=== PATIENT | male | born 1985 | race Caucasian/White ===

== ENCOUNTER 2017-05-02 16:37 | Emergency (ER) | payer MEDICAID ==
[~2017-05-02] VITALS: Ht 180.3 cm; Wt 74.8 kg
[~2017-05-02 16:37] MED LIST: AMOXIL500 M1 PO; AMOXIL500 MG PO; BACTRIM DS 8001 TA1 PO; CYCLOBENZAPRINE10 M1 PO; DARVOCET-N 1001 EACH PO; ETODOLAC400 MG PO; FLEXERIL10 MG PO; GABAPENTIN300 MG PO; LORTAB 5/500 501 TAB PO; MEDROL 4MG. DOSE4 MG PO; MOBIC7.5 MG PO; NAPROSYN 500MG500 MG PO; NORCO 325 MG-101 TAB PO; NORCO 325 MG-51 TAB PO; PHENERGAN 25MG.25 M1 PO; PHENERGAN25 M3 PO; PREDNISONE 20MG20 MG PO; SULFAMETHOXAZOL1 TA6 PO; TAMIFLU 75MG CA75 MG PO; TYLENOL ES500 M1 PO; ZITHROMAX Z-PA250 M1 PO
--- OUTSIDE RECORDS SUMMARY | 2017-05-02 16:58 | External Medical Summary Rpt ---
Author Author , BEATRIS SPEAR Address Unknown Phone [email or web address] Providers Care Transmission And Coordination Engineer Name Role Phone GERARDO PARK MD, PSC, Unavailable Unavailable GERARDO PARK MD, PSC ARNOLD YULISA, ARNOLD Unavailable Unavailable YULISA ARNOLD YULISA, ARNOLD Unavailable Unavailable YULISA MAHARAJ TER, MAHARAJ TER Unavailable Unavailable BUX, BUX Unavailable Unavailable DICK LUPILLO, Unavailable Unavailable DICK LUPILLO DUFF, DUFF Unavailable Unavailable DUFF ALEIDA, DUFF ALEIDA Unavailable Unavailable [facility] KARRIE CIFUENTES Unavailable Unavailable HARP MAKI ALEIDA, Unavailable Unavailable MAKI ALEIDA MAKI ALEIDA, Unavailable Unavailable MAKI ALEIDA FRYMAN EUG, FRYMAN Unavailable Unavailable EUG HOLLIS RODGER, HOLLIS Unavailable Unavailable RODGER [facility] Unavailable Unavailable INC, [facility] Unavailable [facility], [facility] VIVIEN MCKEON, Unavailable Unavailable VIVIEN MCKEON [facility], Unavailable Unavailable [facility] ROGERS, ROGERS Unavailable Unavailable ROGERS TRA, ROGERS TRA Unavailable Unavailable JACK QUEZADA MD, Unavailable Unavailable JACK QUEZADA MD [facility] Unavailable Unavailable [facility], [facility] LARKIN LALITO, LARKIN Unavailable Unavailable LALITO GEO WONG P, Unavailable Unavailable GEO WONG MULBERRY LIBORIO, Unavailable Unavailable MULXENIA LIBORIO [facility] Unavailable [facility]available [facility], [facility] Unavailable Unavailable [id number] [address] [id number], [facility] [id number] # [id number] SCHULSTAD CAM, Unavailable Unavailable SCHULSTAD CAM SOKAN, KRYSTAL O, Unavailable Unavailable SOKAN, KRYSTAL O [facility] GAINES DON, Unavailable Unavailable GAINES DON GAINES DON, Unavailable Unavailable GAINES DON [facility] Unavailable Unavailable #591, [facility]591 [facility] # Unavailable Unavailable [id number], [facility] # [id number] [facility] Unavailable Unavailable DEPT [facility] DEPT [facility] Unavailable Unavailable DEPT [facility] [place], [place] [facility] Unavailable Unavailable Purpose Continuity of Care Document - 02-15-2009 through 2016 Problems Code Diagnosis DOS Provider Status Z539 PROCEDURE & 11-15-2016 [facility] NOT CARRIED INC OUT UNS REASON M5116 INTERVERTEB 09-20-2016 JULIANA ALEJANDRO DISC , PSC D/O W/RADICULOP ATHY LUMB RGN J029 ACUTE 08-16-2016 [facility] PHARYNGITIS PHYSICIANS GROUP UNSPECIFIED R112 NAUSEA WITH 08-16-2016 [facility] VOMITING PHYSICIANS UNSPECIFIED GROUP R197 DIARRHEA 08-16-2016 [facility] UNSPECIFIED PHYSICIANS GROUP M549 DORSALGIA 07-19-2016 [facility] UNSPECIFIED PHYSICIANS GROUP M5136 OT 07-13-2016 FILEMON ALEJANDRO MD, PSC RAL DISC DEGEN LUMBAR REGION J309 ALLERGIC 06-28-2016 [facility] RHINITIS PHYSICIANS UNSPECIFIED GROUP J381 POLYP OF 06-28-2016 [facility] VOCAL CORD PHYSICIANS AND LARYNX GROUP M5126 OT 06-28-2016 FILEMON ALEJANDRO MD, PSC RAL DISC DISPLACEMEN T LUMBAR RGN M5416 RADICULOPAT 06-28-2016 GERARDO PARK HY LUMBAR , PSC REGION Z720 TOBACCO USE 06-28-2016 [facility] PHYSIC[facility]ANS GROUP M545 LOW BACK 06-11-2016 [facility] PAIN PHYSICIANS GROUP R499 UNSPECIFIED 06-11-2016 [facility] VOICE PHYSICIANS RESONANCE GROUP DISORDER J40 BRONCHITIS 03-24-2016 [facility] NOT PHYSICIANS SPECIFIED GROUP ACUTE OR CHRONIC J329 CHRONIC 02-23-2016 [facility] SINUSITIS PHYSICIANS UNSPECIFIED GROUP M5441 LUMBAGO 12-18-2015 [facility] WITH PHYSICIANS SCIATICA GROUP RIGHT SIDE R1011 RIGHT UPPER 12-18-2015 [facility] QUADRANT PHYSICIANS PAIN GROUP F23048 CELLULITIS 10-22-2015 [facility] OF LEFT PHYSICIANS, FINGER PLLC M5430 SCIATICA 10-01-2015 [facility] UNSPECIFIED [facility] M533 SACROCOCCYG 09-21-2015 [facility] MEDICAL DISORDERS IMAGING ASS [facility] D51888 PERSONAL 09-21-2015 [facility]ORY [facility] NICOTINE INC DEPENDENCE J0190 ACUTE 09-16-2015 KEVIN MÁRQUEZ SINUSITIS UNSPECIFIED M542 CERVICALGIA 09-16-2015 KEVIN MÁRQUEZ V0481 NEED 07-16-2015 [facility] DEPT VACCINATION JEZ &INOCULATIO N FLU 7242 LUMBAGO 06-07-2015 MAKI ALEIDA 7393 NONALLOPATH 06-07-2015 MAKI IC LESION ALEIDA OF LUMBAR REGION NEC 7395 NONALLOPATH 06-07-2015 MAKI IC LESION ALEIDA OF PELVIC REGION NEC 462 ACUTE 07-01-2014 [facility]Y PHYS 4739 UNSPECIFIED 07-01-2014 [facility] SINUSITIS N EMERGENCY PHYS V700 ROUTINE 03-29-2014 KEVIN MÁRQUEZ GENERAL MEDICAL EXAM@HEALTH CARE FACL 850.0 850.0 02-21-[address] [facility] W/O [facility] E825.8 E825.8 MV 02-21-2013 [facility] N-TRAFF [facility] E849.8 E849.8 02-21-2013 L[place] ACCIDENT IN [facility] 17557 PAIN IN 01-12-2012 GAINES JOINT, DON SHOULDER REGION 8409 SPRAIN&STRA 01-12-2012 GAINES IN UNSPEC DON SITE SHOULDER&UP PER ARM 6929 CONTACT 10-01-2011 [facility]ES DERMATITIS& DON OTHER ECZEMA DUE UNSPEC CAUSE 7821 RASH AND 04-17-2011 [facility] OTHER ASSOCIATES NONSPECIFIC SKIN ERUPTION 4660 ACUTE 06-15-2010 GAINES BRONCHITIS DON 54097 SHORTNESS 06-15-2010 GAINES OF BREATH DON 17583 OTHER CHEST 06-15-2010 GAINES PAIN DON 44349 NAUSEA WITH 06-15-2010 GAINES VOMITING DON 7804 DIZZINESS 04-01-2010 [facility] GIDDINESS INC 9895 TOXIC 04-01-2010 [facility] EFFECT OF EMERGENCY VENOM SERVICES ASSOCIATES 5206 DISTURBANCE 03-12-2010 Rebekah MCKEON IN TOOTH [facility]IV[place] [place] ERUPTION 93357 DENTAL 03-05-2010 MIKE CARIES [facility] [place] EXTENDING INTO PULP 5220 PULPITIS 03-05-2010 VIVIEN MCKEON 5253 RETAINED 03-05-2010 MIKE DENTAL ROOT VIV[facility] [place] 8920 OPEN WOUND 01-26-2010 [facility] FT NO TOE EMERGENCY ALONE SERVICES WITHOUT ASSOCIATES MENTION COMP V065 NEED 01-26-2010 [facility] PROPHYLACTI [facility] C INC VACCINATION W/TETANUS-D [facility] 4871 INFLUENZA 07-22-2009 [facility] WITH OTHER EMERGENCY RESPIRATORY SERVICES ASSOCIATES MANIFESTATI ONS 4881 INFLUENZA 07-22-2009 [facility] D/T ID 2009 [facility] H1N1 INC INFLUENZA VIRUS 6820 CELLULITIS 05-27-2009 [facility] AND ABSCESS EMERGENCY OF FACE SERVICES ASSOC[facility] 9221 CONTUSION 02-15-2009 [place] OF CHEST MEDICAL WALL IMAGING ASSOCIATES E8150 OTH MOTR 02-15-2009 [place] VEH HERI MEDICAL W/OBJ IMAGING HIWAY-INJUR ASSOCIATES ING SALES MARKETING E8230 OTH MOTR 02-15-2009 [facility] VEH NONTRFF EMERGENCY HERI SERVICES W/STATION ASSOCIATES OBJ-SALES MARKETING E8490 PLACE OF 02-15-2009 [place] OCCURRENCE, MEDICAL HOME IMAGING ASSOC[facility]ATES Allergies, Adverse Reactions, Alerts Type Allergy to substance Adverse Reaction to Substance Substance Reaction Severity NO KNOWN ALLERGIES Unknown Unknown Medications Na ND Rx Da Fi Fi Am Da Di Ph RX Ph St me C No te ll ll ou ys ag ar # ys at rm s nt no ma ic us Or Da si cy ia de te s n re d GA 67 05 06 30 30 00 CL Ac BA 87 -3 -3 .0 00 IN ti PE 70 0- 0- 00 00 IC ve NT 22 20 20 41 IN 30 17 17 78 PH 5 11 AR 30 MA 0 CY MG CA PS UL E GA 67 05 06 30 30 00 CL Ac BA 87 -0 -0 .0 00 IN ti PE 70 2- 2- 00 00 IC ve NT 22 20 20 41 IN 30 17 17 78 PH 5 11 AR 30 MA 0 CY MG CA PS UL E GA 42 04 05 30 30 00 CL Ac BA 58 -0 -0 .0 00 IN ti PE 20 4- 5- 00 00 IC ve NT 11 20 20 41 IN 51 17 17 78 PH 8 11 AR 30 MA 0 CY MG CA PS UL E GA 45 03 03 30 30 00 CL Ac BA 96 -0 -3 .0 00 IN ti PE 30 1- 1- 00 00 IC ve NT 55 20 20 41 IN 65 17 17 78 PH 0 11 AR 30 MA 0 CY MG CA PS UL E CY 00 01 03 30 30 00 CL Ac CL 59 -3 -0 .0 00 IN ti OB 15 1- 3- 00 00 IC ve EN 65 20 20 40 ZA 81 17 17 42 PH NV 0 42 AR IN MA E CY 10 MG TA BL ET ME 29 01 03 30 30 00 CL Ac LO 30 -3 -0 .0 00 IN ti XI 00 1- 3- 00 00 IC ve CA 12 20 20 40 M 40 17 17 42 PH 7. 1 44 AR 5 MA MG CY TA BL ET GA 69 01 03 30 30 00 CL Ac BA 09 -3 -0 .0 00 IN ti PE 70 1- 3- 00 00 IC ve NT 81 20 20 41 IN 41 17 17 78 PH 2 11 AR 30 MA 0 CY MG CA PS UL E ME 29 01 02 30 30 00 CL Ac LO 30 -0 -0 .0 00 IN ti XI 00 2- 3- 00 00 IC ve CA 12 20 20 40 M 40 17 17 42 PH 7. 1 44 AR 5 MA MG CY TA BL ET CY 00 01 02 30 30 00 CL Ac CL 59 -0 -0 .0 00 IN ti OB 15 2- 3- 00 00 IC ve EN 65 20 20 40 ZA 81 17 17 42 PH NV 0 42 AR IN MA E CY 10 MG TA BL ET HY 00 01 02 60 [address] 60 -0 -0 .0 00 IN ti OC 33 3- 3- 00 00 IC ve OD 89 20 20 41 ON 03 17 17 79 PH -A 2 98 AR CE MA TA CY VA NO PH EN 5- 32 5 GA 67 01 02 30 30 00 CL Ac BA 87 -0 -0 .0 00 IN ti PE 70 2- 3- 00 00 IC ve NT 22 20 20 41 IN 31 17 17 77 PH 0 72 AR 30 MA 0 CY MG CA PS UL E HY 00 12 01 60 [address] 60 -0 -0 .0 00 IN ti OC 33 1- 9- 00 00 IC ve OD 89 20 20 41 ON 03 16 17 20 PH -A 2 86 AR CE MA TA CY VA NO PH EN 5- 32 5 KE 00 05 0 No TO 40 -0 RO 93 8- Lo LA 79 20 ng C 60 13 er 60 1 Ac MG ti /2 ve ML AL CE 68 07 07 0 20 10 WA 71 MU Ac PH 18 -0 -0 .0 L- 25 LB ti AL 00 2- 2- 00 MA 56 ER ve EX 12 20 20 RT 0 RY IN 20 11 11 1 PH BR 50 AR IA 0 MA N MG CY T # CA PS 10 UL 05 E 91 AM 00 08 08 0 [address] Ac OX 78 -3 -3 .0 L- 84 EP ti IC 12 1- 1- 00 MA 20 HE ve IL 61 20 20 RT 7 NS LI 33 10 10 N 1 PH DO 50 AR N 0 MA R MG CY # CA PS 10 UL 05 E 91 60 08 08 1 [address] Ac 25 -3 -3 0. L- 84 EP ti 80 1- 1- 00 MA 20 HE ve 23 20 20 0 RT 8 NS 91 10 10 6 PH DO AR N MA R CY # 10 05 91 NV 00 08 08 5 6[address] Ac OV 08 -3 -3 70 L- 84 EP ti EN 51 1- 1- 0 MA 20 HE ve TI 13 20 20 RT 9 NS L 20 10 10 HF 1 PH DO A AR N 90 MA R CY MC # G IN 10 MURILLO 05 LE 91 R OX 00 05 05 20 3 RI 83 HE Ac YC 40 -2 -2 .0 TE 55 ND ti OD 60 7- 7- 00 46 ER ve ON 51 20 20 AI SO E- 20 10 10 D N AC 1 PH RO ET AR BE AM MA RT IN CY W OP HE 03 N 93 5- 8 32 # 5 03 93 AM 65 05 05 15 5 RI 83 HE Ac OX 86 -2 -2 .0 TE 55 ND ti IC 20 7- 7- 00 47 ER ve IL 01 20 20 AI SO LI 70 10 10 D N N 5 PH RO 50 AR BE 0 MA RT MG CY W CA 03 PS 93 UL 8 E # 03 93 IB 53 05 05 20 6 RI 83 HE Ac UP 74 -2 -2 .0 TE 55 ND ti RO 60 7- 7- 00 48 ER ve FE 46 20 20 AI SO N 60 10 10 D N 80 5 PH RO 0 AR BE MG MA RT CY W TA BL 03 ET 93 8 # 03 93 ME 00 05 05 21 6 RI 83 HE Ac TH 60 -2 -2 .0 TE 55 ND ti YL 34 7- 7- 00 49 ER ve NV 59 20 20 AI SO ED 31 10 10 D N NI 5 PH RO SO AR BE LO MA RT NE CY W 4 03 MG 93 8 DO # SE 03 PK 93 NV 00 05 05 12 2 RI 83 HE Ac OM 78 -2 -2 .0 TE 55 ND ti ET 11 7- 7- 00 50 ER ve MURILLO 83 20 20 AI SO ZI 00 10 10 D N NE 1 PH RO AR BE 25 MA RT CY W MG 03 TA 93 BL 8 ET # 03 93 00 05 05 15 3 RI 83 HE Ac 40 -2 -2 .0 TE 46 ND ti 60 0- 0- 00 45 ER ve 35 20 20 AI SO 80 10 10 D N 1 PH RO AR BE MA RT CY W 03 93 8 # 03 93 00 05 05 15 3 RI 83 HE Ac 40 -2 -2 .0 TE 46 ND ti 60 0- 0- 00 45 ER ve 35 20 20 AI SO 80 10 10 D N 1 PH RO AR BE MA RT CY W 03 93 8 # 03 93 AM 65 05 05 20 6 RI 83 HE Ac OX 86 -2 -2 .0 TE 46 ND ti IC 20 0- 0- 00 46 ER ve IL 01 20 20 AI SO LI 70 10 10 D N N 5 PH RO 50 AR BE 0 MA RT MG CY W CA 03 PS 93 UL 8 E # 03 93 00 04 04 12 3 RI 82 SO Ac 60 -1 -1 .0 TE 93 KA ti 35 2- 2- 00 91 N ve 46 20 20 AI BA 82 10 10 D BA 8 PH TU AR ND MA E CY O 03 93 8 # 03 93 ALLRED 00 04 04 28 14 RI 82 SO Ac LF 60 -1 -1 .0 TE 93 KA ti AM 35 2- 2- 00 92 N ve ET 78 20 20 AI BA HO 12 10 10 D BA XA 8 PH TU ZO AR ND LE MA E -T CY O MP 03 DS 93 8 TA # BL 03 ET 93 NV 68 10 10 00 12 2 WA 70 SO Ac OM 38 -0 -2 .0 L- 40 KA ti ET 20 6- 2- 00 MA 14 N ve MURILLO 04 20 20 RT 9 BA ZI 10 09 09 BA NE 1 PH TU AR ND 25 MA E CY O MG #5 TA 91 BL ET TA 00 10 10 00 10 5 WA 70 SO Ac VA 00 -0 -2 .0 L- 40 KA ti FL 40 6- 2- 00 MA 13 N ve U 80 20 20 RT 0 BA 75 08 09 09 BA 5 PH TU MG AR ND MA E CA CY O PS UL #5 E 91 AM 00 08 08 00 30 10 WA 70 SO Ac OX 78 -1 -2 .0 L- 31 KA ti IC 12 1- 7- 00 MA 86 N ve IL 61 20 20 RT 6 BA LI 33 09 09 BA N 1 PH TU 50 AR ND 0 MA E MG CY O CA #5 PS 91 UL E 00 05 05 00 15 5 WA 70 SO Ac 37 -0 -2 .0 L- 18 KA ti 80 2- 1- 00 MA 98 N ve 75 20 20 RT 4 BA 19 09 09 BA 3 PH TU AR ND MA E CY O #5 91 00 05 05 00 10 2 WA 44 SO Ac 40 -0 -2 .0 L- 76 KA ti 60 2- 1- 00 MA 36 N ve 35 20 20 RT 9 BA 70 09 09 BA 5 PH TU AR ND MA E CY O #5 91 NA 00 05 05 00 10 5 WA 70 SO Ac NV 09 -0 -2 .0 L- 18 KA ti OX 30 2- 1- 00 MA 98 N ve EN 14 20 20 RT 5 BA 91 09 09 BA 50 0 PH TU 0 AR ND MG MA E CY O TA BL #5 ET 91 Immunization Name Date Rout CVX Reac Dose Comm Prov Is Faci e tion ent ider Refu lity Give sed n IIV4 3 158 [facility] No [facility] 0-20 O O VACC 15 DIST DIST RICT RICT SPLI T HLTH HLTH VIRU S DEPT DEPT 0.5 JEZ JEZ ML DOS FOR IM USE Vital Signs 02-21-2013 14:26 Name Value Interpretat Reference Comment ion Range Body 98.2 [degF] Temperature BP 68 mm[Hg] Diastolic BP Systolic 130 mm[Hg] Heart 61 /min Rate/Pulse O2% 97 % Respiratory 18 /min Rate 02-21-2013 14:15 Name Value Interpretat Reference Comment ion Range BP 81 mm[Hg] Diastolic BP Systolic 115 mm[Hg] Heart 91 /min Rate/Pulse O2% 98 % Respiratory 18 /min Rate Procedures Procedure DOS Code [place] Performer [place] [address] GERARDO BUX DX/THER 6 MD VIVIAN, SBST PSC EPIDURAL/ SUBARACH LUMBAR/SA CRAL BLOOD 63435 [facility] COMPLETE INC INC AUTO&AUTO DIFRNTL WBC COMPREHEN 66399 [facility] SIVE 6 [facility] METABOLIC INC INC PANEL DRUG TST G0477 [facility] PRESUMP;C 6 [facility] PBL BEING INC INC READ DC OPT OBV ONLY NJX 83260 [facility] DX/THER 6 [facility] SBST INC INC EPIDURAL/ SUBARACH LUMBAR/SA CRAL DRUG TST G0477 [facility] PRESUMP;C 6 [facility] PBL BEING INC INC READ DC OPT OBV ONLY DRUG TST G0477 [facility] PRESUMP;C 6 [facility] PBL BEING INC INC READ DC OPT OBV ONLY DRUG TST G0477 [facility] PRESUMP;C 6 [facility] PBL BEING INC INC READ DC OPT OBV ONLY DRUG TST G0477 [facility] PRESUMP;C 6 [facility] PBL BEING INC INC READ DC OPT OBV ONLY MRI 96114 [facility] TRA SPINAL 6 CANAL ORTHOPAED LUMBAR ICS PSC W/O CONTRAST MATERIAL RADEX 90440 [facility] SPINE 6 [place] LUMBOSACR ORTHOPAED AL 2/3 ICS PLC VIEWS INJECTION J1040 [facility] MAHARAJ TER 6 PHYSICIAN METHYLPRE S GROUP DNISOLONE ACETATE 80 MG THERAPEUT 30729 [facility] MAHARAJ TER IC 6 PHYSICIAN PROPHYLAC S GROUP TIC/DX INJECTION SUBQ/[place] [address] [facility] ABDOMINAL 6 [facility] REAL INC INC TIME W/IMAGE LIMITED INCISION 64377 [facility] & 6 [facility] DRAINAGE INC INC ABSCESS SIMPLE/SI NGLE PHYSICAL 71368 [facility] THERAPY 5 [facility] EVALUATIO INC INC N THERAPEUT 30097 [facility] SCHERER IC 5 [facility] TIC/DX INJECTION SUBQ/IM INJECTION J1885 [facility] PER [address] LUMBAR 53848 [facility] D[facility] SPINE 5 MEDICAL LUPILLO W/O IMAGING CONTRAST ASS MATERIAL THERAPEUT 95236 [facility] IC 5 [facility] PROPHYLAC INC INC TIC/DX INJECTION SUBQ/IM IIV4 [facility]ACC 58854 [facility] S[facility]IT [facility] VIRUS 0.5 HLTH DEPT HLTH DEPT ML DOS JEZ JEZ FOR IM USE CHIROPRA 84478 MAKI MAKI TIC 5 ALEIDA ALEIDA MANIPULAT PRANAV TX SPINAL 1-2 REGIONS RADEX 24197 MAKI MAKI SPINE 5 ALEIDA ALEIDA LUMBOSACR AL 2/3 VIEWS CHIROPRAC 31979 MAKI MAKI TIC 5 ALEIDA ALEIDA MANIPULAT PRANAV TX SPINAL 1-2 REGIONS RADEX 70029 LIANA GAINES SHOULDER 2 DON DON COMPLETE MINIMUM 2 VIEWS DEEP D9220 MIKE MCKEON SEDATION/ 0 , VIVIEN PUGA GENERAL W W ANESTHESI A-1ST 30 MINUTES THER 57060 MIKE MCKEON PROPH/DX 0 , VIVIEN PUGA NJX IV W W PUSH SINGLE/1S T SBST/DRUG ORTHOPANT 37497 MIKE MCKEON OGRAM 0 , VIVIEN PUGA W W IAADI 34789 [facility] INFLUENZA 9 [facility] B VIRUS INC INC IAADI 52862 [facility] INFFLUENZ 9 [facility] A A VIRUS INC INC URNLS DIP 89785 [facility] STICK/TAB INC INC LET REAGENT AUTO MICROSCOP Y RADEX 43580 [place] CORNELL WONG UNI 9 MEDICAL GEO P W/POSTERO IMAGING ANT CH ASSOCIATE MINIMUM 3 S VIEWS Encounters Encounter Start End Date Code Location Performer Type Date [facility]O - 7 7 [facility] OUTPATIEN INC T OFFICE 15099 [facility] 7 7 [facility] T VISIT INC 10 MINUTES OFFICE 01485 GERARDO ANDERSONPATINYA 6 6 MD VIVIAN, T VISIT PSC 15 MINUTES [facility] LITO - 6 6 [facility] OUTPATIEN INC T OFFICE 39205 [facility] NIESHA GALLARDO 6 6 PHYSICIAN EUG T VISIT S GROUP 25 MINUTES [facility] LITO - 6 6 [facility] OUTPATIEN INC T OFFICE 81953 [facility]IEN 6 6 [facility] T VISIT INC 10 MINUTES [facility]OSPITAL [facility] - 6 6 [facility] OUTPATIEN INC T OFFICE 52255 [facility] HOLLIS OUTPATIEN 6 6 PHYSICIAN RODGER T VISIT S GROUP 15 MINUTES [facility]OSPITAL [facility] - 6 6 [facility] OUTPATIEN INC T OFFICE 06386 GERARDO SAMUEL ALEIDA OUTPATIEN 6 6 MD PARK T NEW 30 PSC MINUTES OFFICE 65718 [facility] LARKIN OUTPATIEN 6 6 PHYSICIAN LALITO T NEW 20 S GROUP MINUTES OFFICE 52706 [facility] [place] OUTPATIEN 6 6 PHYSICIAN RODGER T VISIT S GROUP 15 MINUTES [facility] LITO - 6 6 [facility] OUTPATIEN INC T OFFICE 94210 [facility] [place] OUTPATIEN 6 6 PHYSICIAN RODGER T VISIT S GROUP 15 MINUTES HOSPITAL [facility] - 6 6 [facility] OUTPATIEN INC T OFFICE 26401 [facility] [place] OUTPATIEN 6 6 PHYSICIAN RODGER T VISIT S GROUP 25 MINUTES [facility] LITO - 6 6 [facility] OUTPATIEN INC T OFFICE 71172 [facility] [place] OUTPATIEN 6 6 PHYSICIAN RODGER T VISIT S GROUP 10 MINUTES HOSPITAL [facility] - 6 6 [facility] OUTPATIEN INC T OFFICE 77406 [facility] [place] OUTPATIEN 6 6 PHYSICIAN RODGER T VISIT S GROUP 15 MINUTES OFFICE 45817 [facility] [place] OUTPATIEN 6 6 PHYSICIAN RODGER T VISIT S GROUP 10 MINUTES OFFICE 10810 [facility] ROGERS OUTPATIEN 6 6 T VISIT ORTHOPAED 15 ICS PSC MINUTES OFFICE 53009 [facility] TRA CONSULTAT 6 6 [place] ION ORTHOPAED NEW/ESTAB ICS PLC PATIENT 40 MIN OFFICE 50310 [facility] SCHULSTAD OUTPATIEN 6 6 PHYSICIAN CAM T VISIT S GROUP 10 MINUTES OFFICE 07901 [facility] MAHARAJ TER OUTPATIEN 6 6 PHYSICIAN T VISIT S GROUP 15 MINUTES HOSPITAL [facility] - 6 6 [facility] OUTPATIEN INC T OFFICE 21579 [facility] SCHULSTAD OUTPATIEN 6 6 PHYSICIAN CAM T NEW 30 S GROUP MINUTES HOSPITAL [facility] - 6 6 [facility] OUTPATIEN INC T EMERGENCY 07286 [facility] 6 6 [facility] DEPARTMEN INC T VISIT MODERATE SEVERITY HOSPITAL [facility] - 5 5 [facility] OUTPATIEN INC T OFFICE 93179 [facility] SCHERER OUTPATIEN 5 5 [facility] T VISIT HOSPITAL 15 MINUTES EMERGENCY 44526 LIA YOON 5 5 PHYSICIAN [facility] DEPARTMEN S, PLL[facility] T VISIT HIGH/URGE NT SEVERITY HOSPITAL [facility] - 5 5 [facility] OUTPATIEN INC T OFFICE 59064 KEVIN BROWN OUTPATIEN 5 5 YULISA YULISA T VISIT 15 MINUTES OFFICE 01366 GLYNN MAKI OUTPATIEN 5 5 ALEIDA ALEIDA T NEW 20 MINUTES EMERGENCY 24456 [facility] 4 4 [facility] EMERGENC[facility] T VISIT PHYS MODERATE SEVERITY OFFICE 62081 KEVIN BROWN OUTPATIEN 4 4 YULISA YULISA T VISIT 40 MINUTES Emergency MACRINA QUEZADA (ER) 3 13:42 3 14:28 [facility] A OFFICE 24735 LIANA GAINES OUTPATIEN 2 2 DON DON T VISIT 15 MINUTES OFFICE 64727 LIANA GAINES OUTPATIEN 1 1 DON DON T VISIT 15 MINUTES OFFICE 97943 [facility] P[facility] OUTPATIEN 1 1 [facility] T VISIT ASSOCIATE 15 S MINUTES OFFICE 26360 LIANA GAINES OUTPATIEN 0 0 DON DON T NEW 20 MINUTES EMERGENCY 98700 [facility]ES [place], 0 0 EMERGENCY KRYSTAL DEPARTMEN SERVICES O T VISIT HIGH/URGE ASSOCIATE NT S SEVERITY [facility]OSPITAL [facility] - 0 0 [facility] OUTPATIEN INC T EMERGENCY 68699 [facility] 0 0 [facility] DEPARTMEN INC T VISIT MODERATE SEVERITY OFFICE 44536 MIKE MCKEON OUTPATIEN 0 0 , VIVIEN PUGA NEW 10 W W MINUTES HOSPITAL [facility] - 0 0 [facility] OUTPATIEN INC T EMERGENCY 31930 [facility] 0 0 [facility] DEPARTMEN INC T VISIT LIMITED/M INOR PROB EMERGENCY 42792 [facility]ES [place], 0 0 EMERGENCY [facility]RYSTAL DEPARTMEN SERVICES O T VISIT HIGH/URGE ASSOCIATE NT S SEVERITY EMERGENCY 02870 [facility] 9 9 [facility] DEPARTMEN INC T VISIT LOW/MODER SEVERITY HOSPITAL [facility] - 9 9 [facility] OUTPATIEN INC T EMERGENCY 39882 ANG[facility]ES [place], 9 9 EMERGENCY [facility] DEPARTMEN SERVICES O T VISIT MODERATE ASSOCIATE SEVERITY S EMERGENCY 97778 [facility] 9 9 [facility] DEPARTMEN INC T VISIT LOW/MODER SEVERITY [facility]OSPITAL [facility] - 9 9 [facility] OUTPATIEN INC T EMERGENCY 41596 [facility]ES [place], 9 9 EMERGENCY [facility]ST[facility] DEPARTMEN SERVICES O T VISIT HIGH/URGE ASSOCIATE NT S SEVERITY HOSPITAL [facility] - 9 9 [facility] OUTPATIEN INC T EMERGENCY 17021 ANG[facility]ES [place], 9 9 EMERGENCY [facility]RYSTAL DEPARTMEN SERVICES O T VISIT MODERATE ASSOCIATE SEVERITY S EMERGENCY 37602 [facility] 9 9 [facility] DEPARTMEN INC T VISIT LOW/MODER SEVERITY
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
--- OUTSIDE RECORDS SUMMARY | 2017-05-02 17:01 | External Medical Summary Rpt ---
Author Author , BEATRIS SPEAR Address Unknown Phone [email or web address] Care Team Providers Care Plastic Manager Name Role Phone GERARDO PARK MD, PSC, Unavailable Unavailable GERARDO PARK MD, PSC ARNOLD YULISA, ARNOLD Unavailable Unavailable YULISA ARNOLD YULISA, ARNOLD Unavailable Unavailable YULISA MAHARAJ TER, MAHARAJ TER Unavailable Unavailable BUX, BUX Unavailable Unavailable BUX ANJ, BUX ANJ Unavailable Unavailable DICK LUPILLO, Unavailable Unavailable DICK LUPILLO DUFF, DUFF Unavailable Unavailable DUFF ALEIDA, DUFF ALEIDA Unavailable [facility]available [facility], [facility] KARRIE CIFUENTES Unavailable Unavailable HARP MAKI ALEIDA, Unavailable Unavailable MAKI ALEIDA MAKI ALEIDA, Unavailable Unavailable MAKI ALEIDA FRYMAN EUG, FRYMAN Unavailable Unavailable EUG HOLLIS RODGER, HOLLIS Unavailable Unavailable RODGER [facility] Unavailable Unavailable INC, [facility] Unavailable [facility], [facility] VIVIEN MCKEON, Unavailable Unavailable VIVIEN MCKEON [facility], Unavailable Unavailable [facility] ROGERS, ROGERS Unavailable Unavailable [facility] TRA, [facility] Unavailable Unavailable [facility] Unavailable Unavailable [facility], [facility] LARKIN LALITO, LARKIN Unavailable Unavailable LALITO GEO WONG P, Unavailable Unavailable GEO WONGI, Unavailable Unavailable [facility], Unavailable [facility]available [facility], [facility] Unavailable Unavailable [id number] [address] [id number], [facility] [id number] [address] [id number] SCHULSTAD CAM, Unavailable Unavailable SCHULSTAD CAM SOKAN, KRYSTAL O, Unavailable Unavailable SOKAN, KRYSTAL O [facility] AGINES DON, Unavailable Unavailable GAINES DON GAINES DON, Unavailable Unavailable GAINES DON [facility] Unavailable Unavailable #591, [facility] # Unavailable Unavailable [id number], [facility] # [id number] [facility] Unavailable Unavailable [facility] Unavailable Unavailable [facility] ROSMERY HOLT, ROSMERY HOLT Unavailable Unavailable Purpose Continuity of Care Document - 02-15-2009 through 2016 Problems Code Diagnosis DOS Provider Status Z539 PROCEDURE & 11-15-2016 [facility] NOT CARRIED INC OUT UNS REASON M5116 INTERVERTEB 09-20-2016 GERARDO PARK RAL DISC , PSC D/O W/RADICULOP ATHY LUMB RGN J029 ACUTE 08-16-2016 [facility] PHARYNGITIS PHYSICIANS GROUP UNSPECIFIED R112 NAUSEA WITH 08-16-2016 [facility] VOMITING PHYSICIANS UNSPECIFIED GROUP R197 DIARRHEA 08-16-2016 [facility] UNSPECIFIED PHYSICIANS GROUP M549 DORSALGIA 07-19-2016 [facility] UNSPECIFIED PHYSICIANS GROUP M5136 OT 07-13-2016 FILEMON ALEJANDRO MD, PSC RAL DISC DEGEN LUMBAR REGION J309 ALLERGIC 06-28-2016 [facility] RHINITIS PHYSICIANS UNSPECIFIED GROUP J381 POLYP OF 06-28-2016 [facility] VOCAL CORD PHYSICIANS AND LARYNX GROUP M5126 OT 06-28-2016 FILEMON ALEJANDRO MD, PSC RAL DISC DISPLACEMEN T LUMBAR RGN M5416 RADICULOPAT 06-28-2016 GERARDO PARK, HY LUMBAR , PSC REGION Z720 TOBACCO USE 06-28-2016 [facility] M545 LOW BACK 06-11-2016 [facility] PAIN PHYSICIANS GROUP R499 UNSPECIFIED 06-11-2016 [facility] VOICE PHYSICIANS RESONANCE GROUP DISORDER J40 BRONCHITIS 03-24-2016 [facility] NOT PHYSICIANS SPECIFIED GROUP ACUTE OR CHRONIC J329 CHRONIC 02-23-2016 [facility] SINUSITIS PHYSICIANS UNSPECIFIED GROUP M5441 LUMBAGO 12-18-2015 [facility] WITH PHYSICIANS SCIATICA GROUP RIGHT SIDE R1011 RIGHT UPPER 12-18-2015 [facility] QUADRANT PHYSICIANS PAIN GROUP I19179 CELLULITIS 10-22-2015 [facility] PHYSICIANS, FINGER PLLC M5430 SCIATICA 10-01-2015 [facility] M533 SACROCOCCYG 09-21-2015 [facility] MEDICAL DISORDERS IMAGING ASS NEC L66961 PERSONAL 09-21-2015 [facility] NICOTINE INC DEPENDENCE J0190 ACUTE 09-16-2015 ARNOLD YULISA SINUSITIS UNSPECIFIED M542 CERVICALGIA 09-16-2015 KEVIN MÁRQUEZ V0481 NEED 07-16-2015 [facility] DEPT VACCINATION JEZ &INOCULATIO N FLU 7242 LUMBAGO 06-07-2015 MAKI ALEIDA 7393 NONALLOPATH 06-07-2015 MAKI IC LESION ALEIDA OF LUMBAR REGION NEC 7395 NONALLOPATH 06-07-2015 MAKI IC LESION ALEIDA OF PELVIC REGION NEC 462 ACUTE 07-01-2014 [facility] 4739 UNSPECIFIED 07-01-2014 [facility]GENCY PHYS V700 ROUTINE 03-29-2014 KEVIN MÁRQUEZ GENERAL MEDICAL EXAM@HEALTH CARE FACL 39052 PAIN IN 01-12-2012 [facility] JOINT, DON SHOULDER REGION 8409 SPRAIN&STRA 01-12-2012 [facility] IN UNSPEC DON SITE SHOULDER&UP PER ARM 6929 CONTACT 10-01-2011 [facility] DERMATITIS& DON OTHER ECZEMA DUE UNSPEC CAUSE 7821 RASH AND 04-17-2011 [facility] OTHER ASSOCIATES NONSPECIFIC SKIN ERUPTION 4660 ACUTE 06-15-2010 [facility] BRONCHITIS DON 80357 SHORTNESS 06-15-2010 [facility] OF BREATH DON 43864 OTHER CHEST 06-15-2010 [facility] PAIN DON 44791 NAUSEA WITH 06-15-2010 [facility] VOMITING DON 7804 DIZZINESS 04-01-2010 [facility] GIDDINESS INC 9895 TOXIC 04-01-2010 [facility] EFFECT OF EMERGENCY VENOM SERVICES ASSOC[facility]ATES 5206 DISTURBANCE 03-12-2010 Rebekah MCKEON IN TOOTH [facility] [place] ERUPTION 47900 DENTAL 03-05-2010 MIKE CARIES [facility] [place] EXTENDING INTO PULP 5220 PULPITIS 03-05-2010 VIVIEN MCKEON 5253 RETAINED 03-05-2010 MIKE DENTAL ROOT [facility] [place] 8920 OPEN WOUND 01-26-2010 [facility] FT NO TOE EMERGENCY ALONE SERVICES WITHOUT ASSOCIATES MENTION COMP V065 NEED 01-26-2010 [facility]HYLACTI [facility] C INC VACCINATION W/TETANUS-D [facility] 4871 INFLUENZA 07-22-2009 [facility] WITH OTHER EMERGENCY RESPIRATORY SERVICES ASSOCIATES MANIFESTATI ONS 4881 INFLUENZA 07-22-2009 [facility] D/T ID 2008 [facility] H1N1 INC INFLUENZA VIRUS 6820 CELLULITIS 05-27-2009 [facility] AND ABSCESS EMERGENCY OF FACE SERVICES [facility] 9221 CONTUSION 02-15-2009 [facility] IMAGING [facility] E8150 OTH MOTR 02-15-2009 [place] VEH HERI MEDICAL W/OBJ IMAGING HIWAY-INJUR 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 E8230 OTH MOTR 02-15-2009 [facility] VEH NONTRFF EMERGENCY HERI SERVICES W/STATION 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 25 WA [...] 34 7- 7- 00 49 ER ve AZ 59 20 20 AI SO ED 31 10 10 D N NI 5 PH RO SO AR BE LO MA RT NE CY W 4 03 MG 93 8 DO # SE 03 PK 93 AZ 00 05 05 12 2 RI 83 [...] 8 TA # BL 03 ET 93 TA 00 10 10 00 10 5 WA 70 SO Ac LA 00 -0 -2 .0 L- 40 KA ti FL 40 6- 2- 00 MA 13 N ve U 80 20 20 RT 0 BA 75 08 09 09 BA 5 PH TU MG AR ND MA E CA CY O PS UL #5 E 91 AZ 68 10 10 00 12 2 WA 70 SO Ac OM 38 -0 -2 .0 L- 40 KA ti ET 20 6- 2- 00 MA 14 N ve MURILLO 04 20 20 RT 9 BA ZI 10 09 09 BA NE 1 PH TU AR ND 25 MA E CY O MG #5 TA 91 BL ET AM 00 08 08 00 30 10 [...] 10 5 WA 70 SO Ac AZ 09 -0 -2 .0 L- 18 KA ti OX 30 2- 1- 00 MA 98 N ve EN 14 20 20 RT 5 BA 91 09 09 BA 50 0 PH TU 0 AR ND MG MA E CY O TA BL #5 ET 91 00 05 05 00 10 2 WA 44 SO Ac 40 -0 -2 .0 L- 76 KA ti 60 2- 1- 00 MA 36 N ve 35 20 20 RT 9 BA 70 09 09 BA 5 PH TU AR ND MA E CY O #5 91 Immunization Name Date Rout CVX Reac Dose Comm Prov Is Faci e tion ent ider Refu lity Give sed n IIV4 06-19 158 [facility] No [facility] 0-20 O O VACC 15 DIST DIST RICT RICT SPLI T HLTH HLTH VIRU S DEPT DEPT 0.5 JEZ JEZ ML DOS FOR IM USE Procedures Procedure DOS Code [place] NJX 39830 GERARDO PARK DX/THER 6 MD VIVIAN, SBST PSC EPIDURAL/ SUBARACH LUMBAR/SA CRAL BLOOD 87504 [facility] COUNT 6 [facility] COMPLETE INC INC AUTO&AUTO DIFRNTL WBC COMPREHEN 66709 [facility] SIVE 6 [facility] METABOLIC INC INC PANEL DRUG TST G0477 [facility] PRESUMP;C 6 [facility] PBL BEING INC INC READ DC OPT OBV ONLY NJX 62050 GERARDO SAMUEL ALEIDA DX/THER 6 MD VIVIAN, SBST PSC EPIDURAL/ SUBARACH LUMBAR/SA CRAL DRUG TST G0477 [...] INC READ DC OPT OBV ONLY MRI 85282 [facility] TRA SPINAL 6 CANAL ORTHOPAED LUMBAR ICS PSC W/O CONTRAST MATERIAL RADEX 51434 [facility] TRA SPINE 6 [place] LUMBOSACR ORTHOPAED AL 2/3 ICS PLC VIEWS INJECTION J1040 [facility] MAHARAJ TER 6 PHYSICIAN METHYLPRE S GROUP DNISOLONE ACETATE 80 MG THERAPEUT 54777 [facility] [place] IC 6 PHYSICIAN PROPHYLAC S GROUP TIC/DX INJECTION SUBQ/[place] [address] [facility] ABDOMINAL 6 [facility] REAL INC INC TIME W/IMAGE LIMITED INCISION 58218 [facility] & 6 [facility] DRAINAGE INC INC ABSCESS SIMPLE/SI NGLE PHYSICAL 62704 L[facility] THERAPY 5 [facility] EVALUATIO INC INC N THERAPEUT 06664 [facility] LINDSEYCRISTALS[place]URN[place] IC 5 [facility] TIC/DX INJECTION SUBQ/IM INJECTION J1885 [facility] SCOTTAN 5 [facility] TROMETHAM INE PER [address] LUMBAR 91272 [place] DICK SPINE 5 MEDICAL LUPILLO W/O IMAGING CONTRAST ASS MATERIAL THERAPEUT 01100 [facility] IC 5 [facility] PROPHYLAC INC INC TIC/DX INJECTION SUBQ/IM IIV4 VACC 85827 [facility] S[facility] VIRUS 0.5 HLTH DEPT HLTH DEPT ML DOS JEZ JEZ FOR IM USE CHIROPRAC 90536 MAKI MAKI TIC 5 ALEIDA ALEIDA MANIPULAT PRANAV TX SPINAL 1-2 REGIONS RADEX 48591 MAKI MAKI SPINE 5 ALEIDA ALEIDA LUMBOSACR AL 2/3 VIEWS CHIROPRAC 44369 MAKI MAKI TIC 5 ALEIDA ALEIDA MANIPULAT PRANAV TX SPINAL 1-2 REGIONS RADEX 13809 GAINES GAINES SHOULDER 2 DON DON COMPLETE MINIMUM 2 VIEWS DEEP D9220 MIKE MCKEON SEDATION/ 0 , VIVIEN PUGA GENERAL W W ANESTHESI A-1ST 30 MINUTES THER 36459 MIKE MCKEON PROPH/DX 0 , VIVIEN PUGA NJX IV W W PUSH SINGLE/1S T SBST/DRUG ORTHOPANT 80289 MIKE MCKEON OGRAM 0 , VIVIEN PUGA IAADI 67963 [facility] INFLUENZA 9 [facility] B VIRUS INC INC IAADI 10510 [facility] INFFLUENZ 9 [facility] A A VIRUS INC INC RADEX 14843 LTIO M[facility]SE RIBS UNI 9 [facility] W/POSTERO INC INC ANT CH MINIMUM 3 VIEWS URNLS DIP 80165 [facility]SE [facility] STICK/TAB INC INC LET REAGENT AUTO MICROSCOP Y Encounters Encounter Start End Date Code Location Performer Type Date OFFICE 50406 [facility] 7 [facility] T VISIT INC 10 MINUTES [facility]OSP[facility] 7 7 [facility] OUTPATIEN INC T OFFICE 73475 GERARDORAE SAMUEL OUTPATIEN 6 6 MD VIVIAN, T VISIT [facility] 15 MINUTES HOSPITAL [facility] - 6 6 [facility] OUTPATIEN INC [facility] - 6 6 [facility] OUTPATIEN INC T OFFICE 62938 GERARDO MARSH OUTPATIEN 6 6 MD VIVIAN, T VISIT [facility] 10 MINUTES OFFICE 53718 [facility] FRYMAN OUTPATIEN 6 6 PHYSICIAN EUG T VISIT S GROUP 25 MINUTES HOSPITAL [facility] - 6 6 [facility] OUTPATIEN INC T OFFICE 57695 [facility] HOLLIS OUTPATIEN 6 6 PHYSICIAN RODGER T VISIT S GROUP 15 MINUTES HOSPITAL [facility] - 6 6 [facility] OUTPATIEN INC T OFFICE 92211 [facility] LARKIN OUTPATIEN 6 6 PHYSICIAN LALITO T NEW 20 S GROUP MINUTES OFFICE 76671 GERARDO SAMUEL ALEIDA OUTPATIEN 6 6 MD VIVIAN, T [facility] 30 PSC MINUTES OFFICE 63859 [facility] HOLLIS OUTPATIEN 6 6 PHYSICIAN RODGER T VISIT S GROUP 15 MINUTES OFFICE 37725 [facility] HOLLIS OUTPATIEN 6 6 PHYSICIAN RODGER T VISIT S GROUP 15 MINUTES HOSPITAL [facility] - 6 6 [facility] OUTPATIEN INC T HOSPITAL [facility] - 6 6 [facility] OUTPATIEN INC T OFFICE 62331 [facility] HOLLIS OUTPATIEN 6 6 PHYSICIAN RODGER T VISIT S GROUP 25 MINUTES HOSPITAL LIT[facility] - 6 6 [facility] OUTPATIEN INC T OFFICE 45292 [facility] HOLLIS OUTPATIEN 6 6 PHYSICIAN RODGER T VISIT S GROUP 10 MINUTES HOSPITAL [facility] - 6 6 [facility] OUTPATIEN INC T OFFICE 63841 [facility] HOLLIS OUTPATIEN 6 6 PHYSICIAN RODGER T VISIT S GROUP 15 MINUTES OFFICE 98378 [facility] 6 PHYSICIAN RODGER T VISIT S GROUP 10 MINUTES OFFICE 77307 [facility] 6 6 T VISIT ORTHOPAED 15 ICS PSC MINUTES OFFICE 62935 [facility] TRA CONSULTAT 6 6 [place] ION ORTHOPAED NEW/ESTAB ICS PLC PATIENT 40 MIN OFFICE 76450 [facility] SCHULSTAD OUTPATIEN 6 6 PHYSICIAN CAM T VISIT S GROUP 10 MINUTES OFFICE 07630 [facility] MAHARAJ TER OUTPATIEN 6 6 PHYSICIAN T VISIT S GROUP 15 MINUTES HOSPITAL [facility] - 6 6 [facility] OUTPATIEN INC T OFFICE 53640 [facility] SCHULSTAD OUTPATIEN 6 6 PHYSICIAN CAM T NEW 30 S GROUP MINUTES HOSPITAL [facility] - 6 6 [facility] OUTPATIEN INC T EMERGENCY 21490 [facility] 6 6 [facility] DEPARTMEN INC T VISIT MODERATE SEVERITY HOSPITAL [facility] - 5 5 [facility] OUTPATIEN INC T OFFICE 65097 [facility] SCHERER OUTPATIEN 5 5 [facility] T VISIT HOSPITAL 15 MINUTES HOSPITAL [facility] - 5 5 [facility] OUTPATIEN INC T EMERGENCY 28214 LIA YOON 5 5 PHYSICIAN HARP DEPARTMEN S, PLLC T VISIT HIGH/URGE NT SEVERITY OFFICE 45500 KEVIN BROWN OUTPATIEN 5 5 YULISA YULISA T VISIT 15 MINUTES OFFICE 85892 GLYNN MAKI OUTPATIEN 5 5 ALEIDA ALEIDA T NEW 20 MINUTES EMERGENCY 45175 [facility] 4 4 KAMALA DEPARTMEN EMERGENCY T VISIT PHYS MODERATE SEVERITY OFFICE 34166 KEVIN BROWN OUTPATIEN 4 4 YULISA YULISA T VISIT 40 MINUTES OFFICE 19556 [facility] ARAUJOS OUTPATIEN 2 2 DON DON T VISIT 15 MINUTES OFFICE 19106 [facility] GAINES OUTPATIEN 1 1 DON DON T VISIT 15 MINUTES OFFICE 75373 [facility] MULBERRY OUTPATIEN 1 1 CARE LIBORIO T VISIT ASSOCIATE 15 S MINUTES OFFICE 91204 LIANA ARAUJOS OUTPATIEN 0 0 DON DON T NEW 20 MINUTES HOSPITAL [facility] - 0 0 [facility] OUTPATIEN INC T EMERGENCY 67126 [facility] 0 0 [facility] DEPARTMEN INC T VISIT MODERATE SEVERITY EMERGENCY 54282 [facility]ES [place], 0 0 EMERGENCY [facility] DEPARTMEN SERVICES O T VISIT HIGH/URGE ASSOCIATE NT S SEVERITY OFFICE 12809 MIKE MCKEON OUTPATIEN 0 0 , VIVIEN PUGA NEW 10 W W MINUTES EMERGENCY 61316 [facility] [place], 0 0 EMERGENCY [facility] DEPARTMEN SERVICES O T VISIT HIGH/URGE ASSOCIATE NT S SEVERITY EMERGENCY 82328 [facility] 0 0 [facility] DEPARTMEN INC T VISIT LIMITED/M INOR PROB HOSPITAL [facility] - 0 0 [facility] OUTPATIEN INC T EMERGENCY 42469 [facility] [place], 9 9 EMERGENCY [facility] DEPARTMEN SERVICES O T VISIT MODERATE ASSOCIATE SEVERITY S HOSPITAL [facility] - 9 9 [facility] OUTPATIEN INC T EMERGENCY 45439 [facility] 9 9 [facility] DEPARTMEN INC T VISIT LOW/MODER SEVERITY EMERGENCY 81981 [facility] 9 9 [facility] DEPARTMEN INC T VISIT LOW/MODER SEVERITY EMERGENCY 42193 ANG[facility]ES [place], 9 9 EMERGENCY [facility] DEPARTMEN SERVICES O T VISIT HIGH/URGE ASSOCIATE NT S SEVERITY HOSPITAL [facility] - 9 9 [facility] OUTPATIEN INC T EMERGENCY 77067 [facility] 9 9 [facility] DEPARTMEN INC T VISIT LOW/MODER SEVERITY HOSPITAL [facility] - 9 9 [facility] OUTPATIEN INC T EMERGENCY 63290 ANG[facility]ES [place], 9 9 EMERGENCY [facility] DEPARTMEN SERVICES O T VISIT MODERATE ASSOCIATE SEVERITY S
--- OUTSIDE RECORDS SUMMARY | 2017-05-02 17:01 | External Medical Summary Rpt ---
Author Author , BEATRIS SPEAR Address Unknown Phone [email or web address] Care Team Providers Care Box Toe Buffer Name Role Phone GERARDO PARK MD, PSC, [...] EUG HOLLIS RODGER, HOLLIS Unavailable Unavailable RODGER [facility] Unavailable Unavailable INC, [facility] Unavailable [facility], [facility] VIVIEN MCKEON, Unavailable Unavailable VIVIEN MCKEON [facility], Unavailable Unavailable [facility] ROGERS, ROGERS Unavailable Unavailable RGOERS TRA, ROGERS TRA Unavailable Unavailable [facility] Unavailable Unavailable [facility], [facility] LARKIN LALITO, LARKIN Unavailable Unavailable LALITO GEO WONG P, Unavailable Unavailable GEO WONGI, Unavailable Unavailable [facility], Unavailable [facility]available [facility], [facility] Unavailable Unavailable [id number] [id number], [facility] [id number] [address] [id number] SCHULSTAD CAM, Unavailable Unavailable SCHULSTAD CAM SOKAN, KRYSTAL O, Unavailable Unavailable SOKAN, KRYSTAL O [facility] GAINES DON, Unavailable Unavailable GAINES DON GAINES DON, Unavailable Unavailable GAINES DON [facility] Unavailable Unavailable #[id number], [id number] # Unavailable Unavailable [id number], [facility] # [id number] [facility] Unavailable Unavailable [facility] DEPT [facility] Unavailable Unavailable [facility] ROSMERY HOLT, ROSMERY HOLT Unavailable Unavailable Purpose Continuity of Care Document - 02-15-2009 through 2016 Problems Code Diagnosis DOS Provider Status Z539 PROCEDURE & 11-15-2016 [facility] NOT CARRIED INC OUT UNS REASON M5116 INTERVERTEB 09-20-2016 GERARDO PARK RAL DISC , PSC D/O W/RADICULOP ATHY LUMB RGN J029 ACUTE 08-16-[address] [facility] PHARYNGITIS PHYSICIANS GROUP UNSPECIFIED R112 NAUSEA WITH 08-16-[address] [facility] VOMITING PHYSICIANS UNSPECIFIED GROUP R197 DIARRHEA 08-16-[address] [facility] UNSPECIFIED PHYSICIANS GROUP M549 DORSALGIA 07-19-[address] [facility] UNSPECIFIED PHYSICIANS GROUP M5136 OT 07-13-2016 FILEMON ALEJANDRO MD, PSC RAL DISC DEGEN LUMBAR REGION J309 ALLERGIC 06-28-[address] [facility] RHINITIS PHYSICIANS UNSPECIFIED GROUP J381 POLYP OF 06-28-[address] [facility] VOCAL CORD PHYSICIANS AND LARYNX GROUP M5126 OT 06-28-2016 FILEMON ALEJANDRO MD, PSC RAL DISC DISPLACEMEN T LUMBAR RGN M5416 RADICULOPAT 06-28-2016 GERARDO PARK, HY LUMBAR , PSC REGION Z720 TOBACCO USE 06-28-[address] [facility]ANS GROUP M545 LOW BACK 06-11-[address] [facility] PAIN PHYSICIANS GROUP R499 UNSPECIFIED 06-11-[address] [facility] VOICE PHYSICIANS RESONANCE GROUP DISORDER J40 BRONCHITIS 03-24-[address] [facility] NOT PHYSICIANS SPECIFIED GROUP ACUTE OR CHRONIC J329 CHRONIC 02-23-[address] [facility] SINUSITIS PHYSICIANS UNSPECIFIED GROUP M5441 LUMBAGO 12-18-[address] [facility] WITH PHYSICIANS SCIATICA GROUP RIGHT SIDE R1011 RIGHT UPPER 12-18-[address] [facility] QUADRANT PHYSICIANS PAIN GROUP [id number] CELLULITIS 10-22-2015 [facility] OF LEFT PHYSICIANS, FINGER PLLC M5430 SCIATICA 10-01-2015 [facility] M533 SACROCOCCYG 09-21-2015 [facility] MEDICAL DISORDERS IMAGING ASS NEC [id number] PERSONAL 09-21-2015 [facility] NICOTINE INC DEPENDENCE J0190 ACUTE 09-16-2015 ARNOLD YULISA SINUSITIS UNSPECIFIED M542 CERVICALGIA 09-16-2015 KEVIN MÁRQUEZ V0481 NEED 07-16-2015 [facility] VACCINATION JEZ &INOCULATIO N FLU 7242 LUMBAGO 06-07-2015 MAKI ALEIDA 7393 NONALLOPATH 06-07-2015 MAKI IC LESION ALEIDA OF LUMBAR REGION NEC 7395 NONALLOPATH 06-07-2015 MAKI IC LESION ALEIDA OF PELVIC REGION NEC 462 ACUTE 07-01-2014 [facility]GENCY PHYS 4739 UNSPECIFIED 07-01-2014 [facility] SINUSITIS N EMERGENCY PHYS V700 ROUTINE 03-29-2014 KEVIN MÁRQUEZ GENERAL MEDICAL EXAM@HEALTH CARE FACL 50537 PAIN IN 01-12-2012 GAINES JOINT, DON SHOULDER REGION 8409 SPRAIN&STRA 01-12-2012 GAIN[facility] IN UNSPEC DON SITE SHOULDER&UP PER ARM 6929 CONTACT 10-01-2011 [facility] DERMATITIS& DON OTHER ECZEMA DUE UNSPEC CAUSE 7821 RASH AND 04-17-2011 [facility] OTHER ASSOCIATES NONSPECIFIC SKIN ERUPTION 4660 ACUTE 06-15-2010 GA[facility] BRONCHITIS DON 38260 SHORTNESS 06-15-2010 GAIN[facility] OF BREATH DON 73429 OTHER CHEST 06-15-2010 GAINES PAIN DON 60873 NAUSEA WITH 06-15-2010 GAINES VOMITING DON 7804 DIZZINESS 04-01-2010 [facility] GIDDINESS INC 9895 TOXIC 04-01-2010 [facility] EFFECT OF EMERGENCY VENOM SERVICES ASSOCIATES 5206 DISTURBANCE 03-12-2010 Rebekah MCKEON IN TOOTH [facility] [place] ERUPTION 33419 DENTAL 03-05-2010 MIKE CARIES [facility] [place] EXTENDING INTO PULP 5220 PULPITIS 03-05-2010 VIVIEN MCKEON 5253 RETAINED 03-05-2010 MIKE DENTAL ROOT [facility] [place] 8920 OPEN WOUND 01-26-2010 [facility] FT NO TOE EMERGENCY ALONE SERVICES WITHOUT ASSOCIATES MENTION COMP V065 NEED 01-26-2010 [facility] PROPHYLACTI [facility] C INC VACCINATION W/TETANUS-D [facility] 4871 INFLUENZA 07-22-2009 [facility] WITH OTHER EMERGENCY RESPIRATORY SERVICES ASSOCIATES MANIFESTATI ONS 4881 INFLUENZA 07-22-2009 [facility] D/T ID 2008 [facility] H1N1 INC INFLUENZA VIRUS 6820 CELLULITIS 05-27-2009 [facility] AND ABSCESS EMERGENCY OF FACE SERVICES [facility]OC[facility] 9221 CONTUSION 02-15-2009 [facility] MEDICAL WALL IMAGING ASSOCIATES E8150 OTH MOTR 02-15-2009 [place] [facility]ICAL W/OBJ IMAGING HIWAY-INJUR ASSOCIATES 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 25 WA [...] 34 7- 7- 00 49 ER ve GA 59 20 20 AI SO ED 31 10 10 D N NI 5 PH RO SO AR BE LO MA RT NE CY W 4 03 MG 93 8 DO # SE 03 PK 93 GA 00 05 05 12 2 RI 83 [...] 00 10 5 WA 70 SO Ac [place] 00 -0 -2 .0 L- 40 KA ti FL 40 6- 2- 00 MA 13 N ve U 80 20 20 RT 0 BA 75 08 09 09 BA 5 PH TU MG AR ND MA E CA CY O PS UL #5 E 91 GA 68 10 10 00 12 2 WA [...] 00 10 5 WA 70 SO Ac GA 09 -0 -2 .0 L- 18 KA [...] Procedure DOS [place]X [address] GERARDO PARK DX/THER 6 MD VIVIAN, SBST PSC EPIDURAL/ SUBARACH LUMBAR/SA CRAL BLOOD 48084 [facility] COUNT 6 [facility] COMPLETE INC INC AUTO&AUTO DIFRNTL WBC COMPREHEN 96238 [facility] SIVE 6 [facility] METABOLIC INC INC PANEL DRUG TST G0477 [facility] PRESUMP;C 6 [facility] PBL BEING INC INC READ DC OPT OBV ONLY NJX 39655 GERARDO SAMUEL ALEIDA DX/THER 6 MD VIVIAN, [...] INC READ DC OPT OBV ONLY MRI 84142 [facility] TRA SPINAL 6 CANAL ORTHOPAED LUMBAR ICS PSC W/O CONTRAST MATERIAL RADEX 10351 [facility] TRA SPINE 6 [place] LUMBOSACR ORTHOPAED AL 2/3 ICS PLC VIEWS INJECTION J10[address] [facility] MAHARAJ TER 6 PHYSICIAN METHYLPRE S GROUP DNISOLONE ACETATE 80 MG THERAPEUT [address] [facility] [place] IC 6 PHYSICIAN PROPHYLAC S GROUP TIC/DX INJECTION SUBQ/[place] [address] [facility] ABDOMINAL 6 [facility] REAL INC INC TIME W/IMAGE LIMITED INCISION 52198 [facility] & 6 [facility] DRAINAGE INC INC ABSCESS SIMPLE/SI NGLE PHYSICAL 73885 [facility] THERAPY 5 [facility] EVALUATIO INC INC N THERAPEUT 25800 [facility] LINDSEYCRISTALSATURNINO IC [address] [facility] TIC/DX INJECTION SUBQ/IM INJECTION J1885 [facility] SCOTTAN 5 [facility] TROMETHAM INE PER [address] LUMBAR 30742 [place] DICK SPINE 5 MEDICAL LUPILLO W/O IMAGING CONTRAST ASS MATERIAL THERAPEUT 37488 [facility] IC 5 [facility] PROPHYLAC INC INC TIC/DX INJECTION SUBQ/IM IIV4 VACC 39643 [facility] SPLIT 5 [facility] DISTRICT VIRUS 0.5 HLTH DEPT HLTH DEPT ML DOS JEZ JEZ FOR IM USE CHIROPRAC 14450 MAKI MAKI TIC 5 ALEIDA ALEIDA MANIPULAT PRANAV TX SPINAL 1-2 REGIONS RADEX 84175 MAKI MAKI SPINE 5 ALEIDA ALEIDA LUMBOSACR AL 2/3 VIEWS CHIROPRAC 23372 MAKI MAKI TIC 5 ALEIDA ALEIDA MANIPULAT PRANAV TX SPINAL 1-2 REGIONS RADEX 79262 GAINES GAINES SHOULDER 2 DON DON COMPLETE MINIMUM 2 VIEWS DEEP D9220 MIKE MCKEON SEDATION/ 0 , VIVIEN PUGA GENERAL W W ANESTHESI A-1ST 30 MINUTES THER 21476 MIKE MCKEON PROPH/DX 0 , VIVIEN PUGA NJX IV W W PUSH SINGLE/1S T SBST/DRUG ORTHOPANT 06887 MIKE MCKEON OGRAM 0 , VIVIEN PUGA IAADI 47772 [facility] INFLUENZA 9 [facility] B VIRUS INC INC IAADI 73196 [facility] INFFLUENZ 9 [facility] A A VIRUS INC INC RADEX 21301 [facility] RIBS UNI 9 [facility] W/POSTERO INC INC ANT CH MINIMUM 3 VIEWS URNLS DIP 83915 [facility]SE 9 [facility] STICK/TAB INC INC LET REAGENT AUTO MICROSCOP Y Encounters Encounter Start End Date Code Location Performer Type Date OFFICE 34401 [facility] 7 7 [facility] T VISIT INC 10 MINUTES [facility]OSPITAL [facility] - 7 7 [facility] OUTPATIEN INC T OFFICE 17631 GERARDORAE SAMUEL OUTPATIEN 6 6 MD VIVIAN, T VISIT [facility] 15 MINUTES HOSPITAL [facility] - 6 6 [facility] OUTPATIEN INC [facility]PITAL [facility] - 6 6 [facility] OUTPATIEN INC T OFFICE 46007 GERARDO MARSH OUTPATIEN 6 6 MD VIVIAN, T VISIT [facility] 10 MINUTES OFFICE [address] [facility] FRYMAN OUTPATIEN 6 6 PHYSICIAN EUG T VISIT S GROUP 25 MINUTES HOSPITAL [facility] - 6 6 [facility] OUTPATIEN INC T OFFICE [address] [facility] HOLLIS OUTPATIEN 6 6 PHYSICIAN RODGER T VISIT S GROUP 15 MINUTES HOSPITAL [facility] - 6 6 [facility] OUTPATIEN INC T OFFICE [address] [facility] LARKIN OUTPATIEN 6 6 PHYSICIAN LALITO T NEW 20 S GROUP MINUTES OFFICE 51061 GERARDO SAMUEL ALEIDA OUTPATIEN 6 6 MD VIVIAN, T [facility] 30 PSC MINUTES OFFICE [address] [facility] HOLLIS OUTPATIEN 6 6 PHYSICIAN RODGER T VISIT S GROUP 15 MINUTES OFFICE [address] [facility] HOLLIS OUTPATIEN 6 6 PHYSICIAN RODGER T VISIT S GROUP 15 MINUTES HOSPITAL [facility] - 6 6 [facility] OUTPATIEN INC T HOSPITAL [facility] - 6 6 [facility] OUTPATIEN INC T OFFICE 45313 [facility] HOLLIS OUTPATIEN 6 6 PHYSICIAN RODGER T VISIT S GROUP 25 MINUTES HOSPITAL L[facility] - 6 6 [facility] OUTPATIEN INC T OFFICE 90490 [facility] HOLLIS OUTPATIEN 6 6 PHYSICIAN RODGER T VISIT S GROUP 10 MINUTES HOSPITAL [facility] - 6 6 [facility] OUTPATIEN INC T OFFICE [address] [facility] HOLLIS OUTPATIEN 6 6 PHYSICIAN RODGER T VISIT S GROUP 15 MINUTES OFFICE 25029 [facility] OUT[facility] 6 6 PHYSICIAN RODGER T VISIT S GROUP 10 MINUTES OFFICE 05262 [facility] ROGERS OUTPATIEN 6 6 T VISIT ORTHOPAED 15 ICS PSC MINUTES OFFICE 86167 [facility] TRA CONSULTAT 6 6 [place] ION ORTHOPAED NEW/ESTAB ICS PLC PATIENT 40 MIN OFFICE [address] [facility] SCHULSTAD OUTPATIEN 6 6 PHYSICIAN CAM T VISIT S GROUP 10 MINUTES OFFICE [address] [facility] MAHARAJ TER OUTPATIEN 6 6 PHYSICIAN T VISIT S GROUP 15 MINUTES HOSPITAL [facility] - 6 6 [facility] OUTPATIEN INC T OFFICE [address] [facility] SCHULSTAD OUTPATIEN 6 6 PHYSICIAN CAM T NEW 30 S GROUP MINUTES HOSPITAL [facility] - 6 6 [facility] OUTPATIEN INC T EMERGENCY 28084 [facility] 6 6 [facility] DEPARTMEN INC T VISIT MODERATE SEVERITY HOSPITAL [facility] - 5 5 [facility] OUTPATIEN INC T OFFICE 59152 [facility] SCHERER OUTPATIEN 5 5 [facility] T VISIT HOSPITAL 15 MINUTES HOSPITAL [facility] - 5 5 [facility] OUTPATIEN INC T EMERGENCY 15623 LIA YOON 5 5 PHYSICIAN [facility]PART[facility] T VISIT HIGH/URGE NT SEVERITY OFFICE 62375 KEVIN BROWN OUTPATIEN 5 5 YULISA YULISA T VISIT 15 MINUTES OFFICE 57406 GLYNN MAKI OUTPATIEN 5 5 ALEIDA ALEIDA T NEW 20 MINUTES EMERGENCY 02373 [place] 4 4 KAMALA DEPARTMEN EMERGENCY T VISIT PHYS MODERATE SEVERITY OFFICE 83163 KEVIN BROWN OUTPATIEN 4 4 YULISA YULISA T VISIT 40 MINUTES OFFICE 90577 LIANA ARAUJOS OUTPATIEN 2 2 DON DON T VISIT 15 MINUTES OFFICE 51179 GAIN[facility] GAINES OUTPATIEN 1 1 DON DON T VISIT 15 MINUTES OFFICE 00350 [facility]ILY MULBERRY OUTPATIEN 1 1 [facility] T VISIT ASSOCIATE 15 S MINUTES OFFICE 40619 LIANA ARAUJOS OUTPATIEN 0 0 DON DON T NEW 20 MINUTES HOSPITAL [facility] - 0 0 [facility] OUTPATIEN INC T EMERGENCY 11188 [facility] 0 0 [facility] DEPARTMEN INC T VISIT MODERATE SEVERITY EMERGENCY 43259 [facility] [place], 0 0 EMERGENCY K[facility]STAL DEPARTMEN SERVICES O T VISIT HIGH/URGE ASSOCIATE NT S SEVERITY OFFICE 74515 MIKE MCKEON OUTPATIEN 0 0 , VIVIEN PUGA NEW 10 W W MINUTES EMERGENCY 06780 ANGELES [place], 0 0 EMERGENCY [facility]ST[facility] DEPARTMEN SERVICES O T VISIT HIGH/URGE ASSOCIATE NT S SEVERITY EMERGENCY 27881 [facility] 0 0 [facility] DEPARTMEN INC T VISIT LIMITED/M INOR PROB HOSPITAL [facility] - 0 0 [facility] OUTPATIEN INC T EMERGENCY 13047 ANGELES [place], 9 9 EMERGENCY [facility] DEPARTMEN SERVICES O T VISIT MODERATE ASSOCIATE SEVERITY S HOSPITAL [facility] - 9 9 [facility] OUTPATIEN INC T EMERGENCY 97008 [facility] 9 9 [facility] DEPARTMEN INC T VISIT LOW/MODER SEVERITY EMERGENCY 55478 [facility] 9 9 [facility] DEPARTMEN INC T VISIT LOW/MODER SEVERITY EMERGENCY 64025 ANGELES [place], 9 9 EMERGENCY [facility]PART[facility] O T VISIT HIGH/URGE ASSOCIATE NT S SEVERITY HOSPITAL [facility] - 9 9 [facility] OUTPATIEN INC T EMERGENCY 85810 [facility] 9 9 [facility] DEPARTMEN INC T VISIT LOW/MODER SEVERITY HOSPITAL [facility] - 9 9 [facility] OUTPATIEN INC T EMERGENCY 77169 ANGELES [place], 9 9 EMERGENCY [facility] DEPARTMEN SERVICES O T VISIT MODERATE ASSOCIATE SEVERITY S
--- OUTSIDE RECORDS SUMMARY | 2017-05-02 17:02 | External Medical Summary Rpt ---
Demographics Preferred Language Niuean Marital Status Unknown Rastafarian Affiliation Unknown Race Unknown Ethnic Group Unknown Author Author FELI Address Unknown Phone Immunization No patient found.
--- OUTSIDE RECORDS SUMMARY | 2017-05-02 17:02 | External Medical Summary Rpt ---
Demographics Preferred Language [place] Citizen Marital Status Unknown Samaritan Affiliation Unknown Race Unknown Ethnic Group Unknown Author Author FELI Address Unknown Phone Immunization No patient found.
--- NOTE | 2017-05-02 17:43 | Emergency Room Report ---
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 N Clinical Suspician of Infection? N Mental Status: 1 - Regular (Normal Baseline) Sepsis Risk:Low Sepsis Risk Have you (or family members/close friends) recently traveled outside the [place]? N If Yes, where/when: Have you had exposure to infectious disease within the past month? N TB? Other? Specify: Source patient Exam Limitations no limitations ALLERGIES Coded Allergies: No Known Allergies (09/21/15) History Medical History General CAD? No Angina: No VA: No Hypertension? No Hyperlipidemia? No CHF? No DVT? No PE? No COPD? No Asthma? No Anemia? No GERD? Yes Gastric ulcers? No GI Bleed? No Hernia? No Thyroid Problems? No Hypothyroidism? No CVA? No Seizures? No Diabetes? No Renal Insuffiency? No End Stage Renal Disease? No UTI? No Stones? No BPH? No GB Disease: No Nephritic Syndrome? No Asplenia? No Hepatitis? No Sickle Cell Disease? No Arthritis? No Migraines? No Cataracts? No Glaucoma? No MRSA? No HIV? No TB? No Anxiety? No Depression? No Cancer? No More? No Immunization Hx DT/Tetanus 01/26/2010 Family History Family Hx Family Hx Insignificant Yes Social History Smoking Hx Smoker: Current Every Day Smoker Tobacco: Yes Type Cigarettes Packs/day 1 1/2 - 2 Packs Alcohol Alcohol: No Drugs denies Review of Systems All Other Systems Reviewed and Negative Constitutional no symptoms reported, see HPI Eyes no symptoms reported Respiratory no symptoms reported Cardiovascular no symptoms reported Genitourinary no symptoms reported. Skin denies lesions Psychiatric/Neurological no symptoms reported Physical Exam Vital Signs Vital Signs Date Time Temp Pulse Resp B/P Pulse O2 O2 Flow FiO2 Ox Delivery Rate 05/02 1648 98.7 90 16 122/72 99 05/02 1641 98.7 90 16 122/72 - WBC >12,000 or <4,000 or 10% bands? 2 or more SIRS Criteria Met? B/P:122/72 MAP:88 Creatinine >2.0? UA output<0.5ml/kg/hr for 2 hrs? Platelet count >100,000? Lactate >2.0mmol/1? INR >1.2 or PTT > than 60 sec? Evidence of Organ Dysfunction? Provider documented clinical suspician of infection? N Sepsis Criteria Count: 1 Sepsis Risk: Low Sepsis Risk General Appearance normal appearance, WD/WN, mild distress Eye Exam - right eye normal exam, right eye PERRL, right eye EOMI Neck non-tender, supple, full range of motion Respiratory Status Yes: respiratory distress, trachea midline. Lung Sounds bilateral: normal breath sounds. Cardiovascular normal exam, regular rate/rhythm Skin lesions (abscess Lt forearm) Medical Decision Making LABS/Meds/Orders Results/Orders Current Medication Orders Sig/Odalys Start time Last Medication Dose Route Stop Time Status Admin Clindamycin Phosphate 600 MG ONCE ONE 05/02 1745 AC Sodium Chloride 100 ML IV 05/02 1846 Oxycodone/ 1 TAB ONCE ONE 05/02 1745 AC Acetaminophen PO 05/02 1746 Sodium Chloride 10 ML PRN PRN 05/02 1745 AC IV 05/03 1736 Lidocaine HCl 0 .STK-MED ONE 05/02 1716 DC .ROUTE Lidocaine HCl 20 ML ONCE ONE 05/02 1715 DC 05/02 SC 05/02 1716 1716 Orders Procedure Date/time Status IV SALINE LOCK 05/02 1736 Active CULTURE, WOUND 05/02 171 Active Procedures Laceration/Wound Repair Laceration/Wound Repair Risks/benefits discussed with pt/guardian? Yes Wound Location forearm Wound Length (cm) 6.0 Risk of retained FB explained to pt/guardian? Yes Incision and Drainage Incision and Drainage Risks/benefits discussed with pt/guardian? Yes Problem type Abcess (packed with plain gauze) Location lt forearm Size cm 6.0 Anesthesia Lidocaine 2% Blade Size 11 I & D Procedure Simple, betadine prep, sterile drapes applied, Scalpel incision cm-, Pus large amount. Progress Sent for culture and sensitivity Departure Departure Condition STABLE Referrals Brigido VAUGHN,Ford Zaragoza (Family)
--- NOTE | 2017-05-02 17:43 | Emergency Room Report ---
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 N Clinical Suspician of Infection? N Mental Status: 1 - Regular (Normal Baseline) Sepsis Risk:Low Sepsis Risk Have you (or family members/close friends) recently traveled outside the [place]? N If Yes, where/when: Have you had exposure to infectious disease within the past month? N TB? Other? Specify: Source patient Exam Limitations no limitations ALLERGIES Coded Allergies: No Known Allergies (09/21/15) History Medical History General CAD? No Angina: No HI: No Hypertension? No Hyperlipidemia? No CHF? No DVT? No PE? No COPD? No Asthma? No Anemia? No GERD? Yes Gastric ulcers? No GI Bleed? No Hernia? No Thyroid Problems? No Hypothyroidism? No CVA? No Seizures? No Diabetes? No Renal Insuffiency? No End Stage Renal Disease? No UTI? No Stones? No BPH? No GB Disease: No Nephritic Syndrome? No Asplenia? No Hepatitis? No Sickle Cell Disease? No Arthritis? No Migraines? No Cataracts? No Glaucoma? No MRSA? No HIV? No TB? No Anxiety? No Depression? No Cancer? No More? No Immunization Hx DT/Tetanus 01/26/2010 Family History Family Hx Family Hx Insignificant Yes Social History Smoking Hx Smoker: Current Every Day Smoker Tobacco: Yes Type Cigarettes Packs/day 1 1/2 - 2 Packs Alcohol Alcohol: No Drugs denies Review of Systems All Other Systems Reviewed and Negative Constitutional no symptoms reported, see HPI Eyes no symptoms reported Respiratory no symptoms reported Cardiovascular no symptoms reported Genitourinary no symptoms reported. Skin denies lesions Psychiatric/Neurological no symptoms reported Physical Exam Vital Signs Vital Signs Date Time Temp Pulse Resp B/P Pulse O2 O2 Flow FiO2 Ox Delivery Rate 05/02 1648 98.7 90 16 122/72 99 05/02 1641 98.7 90 16 122/72 - WBC >12,000 or <4,000 or 10% bands? 2 or more SIRS Criteria Met? B/P:122/72 MAP:88 Creatinine >2.0? UA output<0.5ml/kg/hr for 2 hrs? Platelet count >100,000? Lactate >2.0mmol/1? INR >1.2 or PTT > than 60 sec? Evidence of Organ Dysfunction? Provider documented clinical suspician of infection? N Sepsis Criteria Count: 1 Sepsis Risk: Low Sepsis Risk General Appearance normal appearance, WD/WN, mild distress Eye Exam - right eye normal exam, right eye PERRL, right eye EOMI Neck non-tender, supple, full range of motion Respiratory Status Yes: respiratory distress, trachea midline. Lung Sounds bilateral: normal breath sounds. Cardiovascular normal exam, regular rate/rhythm Skin lesions (abscess Lt forearm) Medical Decision Making LABS/Meds/Orders Results/Orders Current Medication Orders Sig/Odlays Start time Last Medication Dose Route Stop Time Status Admin Clindamycin Phosphate 600 MG ONCE ONE 05/02 1745 AC Sodium Chloride 100 ML IV 05/02 1846 Oxycodone/ 1 TAB ONCE ONE 05/02 1745 AC Acetaminophen PO 05/02 1746 Sodium Chloride 10 ML PRN PRN 05/02 1745 AC IV 05/03 1736 Lidocaine HCl 0 .STK-MED ONE 05/02 1716 DC .ROUTE Lidocaine HCl 20 ML ONCE ONE 05/02 1715 DC 05/02 SC 05/02 1716 1716 Orders Procedure Date/time Status IV SALINE LOCK 05/02 1736 Active CULTURE, WOUND 05/02 171 Active Procedures Laceration/Wound Repair Laceration/Wound Repair Risks/benefits discussed with pt/guardian? Yes Wound Location forearm Wound Length (cm) 6.0 Risk of retained FB explained to pt/guardian? Yes Incision and Drainage Incision and Drainage Risks/benefits discussed with pt/guardian? Yes Problem type Abcess (packed with plain gauze) Location lt forearm Size cm 6.0 Anesthesia Lidocaine 2% Blade Size 11 I & D Procedure Simple, betadine prep, sterile drapes applied, Scalpel incision cm-, Pus large amount. Progress Sent for culture and sensitivity Departure Departure Condition STABLE Referrals Brigido VAUGHN,Ford Zaragoza (Family)
[2017-05-02 18:48] VITALS: BP 140/74
[2017-06-01] MEDS ORDERED: BACTRIM DS 8001 TA1 PO (11:51)
[2017-06-01] MEDS ORDERED: CLINDAMYCIN HC150 MG PO (11:51)
--- NOTE | 2017-06-01 11:54 | Emergency Room Report ---
History of Present Illness Time Seen by 1655 Presenting Problem in Triage Pt arrived:Walked Presenting Problem:ABSCESS TO LEFT ARM X4 DAYS Onset of symptoms date/time:/ or onset unknown for:MEDICAL HX UNKNOWN Treatment Prior to Arrival: TAKER DOWN Provided by: Sepsis Risk Assessment: Temp: 98.7 B/P: 140/74 MAP: 88 Pulse: 100 Resp: 14 Recent fever? N Clinical Suspician of Infection? N Mental Status: 1 - Regular (Normal Baseline) Sepsis Risk:Low Sepsis Risk Have you (or family members/close friends) recently traveled outside the [place]? N If Yes, where/when: Have you had exposure to infectious disease within the past month? N TB? Other? Specify: Source patient, RN notes reviewed Exam Limitations no limitations ALLERGIES Coded Allergies: No Known Allergies (09/21/15) History Medical History General CAD? No Angina: No [place]: No Hypertension? No Hyperlipidemia? No CHF? No DVT? No PE? No COPD? No Asthma? No Anemia? No GERD? Yes Gastric ulcers? No GI Bleed? No Hernia? No Thyroid Problems? No Hypothyroidism? No CVA? No Seizures? No Diabetes? No Renal Insuffiency? No End Stage Renal Disease? No UTI? No Stones? No BPH? No GB Disease: No Nephritic Syndrome? No Asplenia? No Hepatitis? No Sickle Cell Disease? No Arthritis? No Migraines? No Cataracts? No Glaucoma? No MRSA? No HIV? No TB? No Anxiety? No Depression? No Cancer? No More? No Immunization Hx DT/Tetanus 01/26/2010 Surgical Hx Previous Surgery?N Social History Smoking Hx Smoker: Current Every Day Smoker Tobacco: Yes Type Cigarettes Packs/day 1 1/2 - 2 Packs Alcohol Alcohol: No Drugs denies Review of Systems All Other Systems Reviewed and Negative Skin see HPI Physical Exam Vital Signs Vital Signs Date Time Temp Pulse Resp B/P Pulse O2 O2 Flow FiO2 Ox Delivery Rate 05/02 1848 98.7 100 14 140/74 99 / 1837 100 14 140/74 99 05/02 1753 100 14 141/72 99 05/02 1751 18 05/02 1648 98.7 90 16 122/72 99 / 1641 98.7 90 16 122/72 General Appearance normal appearance, WD/WN Respiratory Status Yes: trachea midline, chest symmetrical, non tender chest. No: respiratory distress. 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 No Results/Orders Orders Procedure Date/time Status IV SALINE LOCK 05/02 1736 Active CULTURE, WOUND 05/02 1714 Complete Procedures Laceration/Wound Repair Laceration/Wound Repair Risks/benefits discussed with pt/guardian? Yes Tetanus status up to date Wound Location forearm Wound Length (cm) 6 Wound's Depth, Shape sucutaneous tissue Wound Explored not applicable Wound Prep Betadine Anesthesia 1% Lidocaine Volume Anesthetic (ccs) 10 Wound Debrided none Wound Repaired With NA Sterile Dressing Applied Yes Departure Departure Disposition DC Home or Self Care(routine) Clinical Impression Primary Impression: Abscess Condition STABLE Referrals Brigido VAUGHN,Ford Zaragoza (Family) Patient Instructions DI for Wound Infection Additional Instructions RETURN TO [facility] IN ONE FOR PACKING REMOVAL AND RECHECK. MEDICATIONS PRESCRIBED Discharge Counseling Counseled pt/family regarding diagnosis, home care, follow up needs Prescriptions Current Visit Scripts SULFAMETHOXAZOLE W/TRIMETHOPRI (Bactrim Ds Tab) 1 TABLET PO BID #20 TAB CLINDAMYCIN HCL (Clindamycin 150MG CAP) 150 MG PO TID #30 CAPSULE ED Critical Care Critical Care No at 1153
--- NOTE | 2017-06-01 11:54 | Emergency Room Report ---
History of Present Illness Time Seen by 1655 Presenting Problem in Triage Pt arrived:Walked Presenting Problem:ABSCESS TO LEFT ARM X4 DAYS Onset of symptoms date/time:/ or onset unknown for:MEDICAL HX UNKNOWN Treatment Prior to Arrival: DETECTIVE HOMICIDE SQUAD Provided by: Sepsis Risk Assessment: Temp: 98.7 B/P: 140/74 MAP: 88 Pulse: 100 Resp: 14 Recent fever? N Clinical Suspician of Infection? N Mental Status: 1 - Regular (Normal Baseline) Sepsis Risk:Low Sepsis Risk Have you (or family members/close friends) recently traveled outside the [place]? N If Yes, where/when: Have you had exposure to infectious disease within the past month? N TB? Other? Specify: Source patient, RN notes reviewed Exam Limitations no limitations ALLERGIES Coded Allergies: No Known Allergies (09/21/15) History Medical History General CAD? No Angina: No [place]: No Hypertension? No Hyperlipidemia? No CHF? No DVT? No PE? No COPD? No Asthma? No Anemia? No GERD? Yes Gastric ulcers? No GI Bleed? No Hernia? No Thyroid Problems? No Hypothyroidism? No CVA? No Seizures? No Diabetes? No Renal Insuffiency? No End Stage Renal Disease? No UTI? No Stones? No BPH? No GB Disease: No Nephritic Syndrome? No Asplenia? No Hepatitis? No Sickle Cell Disease? No Arthritis? No Migraines? No Cataracts? No Glaucoma? No MRSA? No HIV? No TB? No Anxiety? No Depression? No Cancer? No More? No Immunization Hx DT/Tetanus 01/26/2010 Surgical Hx Previous Surgery?N Social History Smoking Hx Smoker: Current Every Day Smoker Tobacco: Yes Type Cigarettes Packs/day 1 1/2 - 2 Packs Alcohol Alcohol: No Drugs denies Review of Systems All Other Systems Reviewed and Negative Skin see HPI Physical Exam Vital Signs Vital Signs Date Time Temp Pulse Resp B/P Pulse O2 O2 Flow FiO2 Ox Delivery Rate 05/02 1848 98.7 100 14 140/74 99 / 1837 100 14 140/74 99 05/02 1753 100 14 141/72 99 05/02 1751 18 05/02 1648 98.7 90 16 122/72 99 / 1641 98.7 90 16 122/72 General Appearance normal appearance, WD/WN Respiratory Status Yes: trachea midline, chest symmetrical, non tender chest. No: respiratory distress. 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 No Results/Orders Orders Procedure Date/time Status IV SALINE LOCK 05/02 1736 Active CULTURE, WOUND 05/02 1714 Complete Procedures Laceration/Wound Repair Laceration/Wound Repair Risks/benefits discussed with pt/guardian? Yes Tetanus status up to date Wound Location forearm Wound Length (cm) 6 Wound's Depth, Shape sucutaneous tissue Wound Explored not applicable Wound Prep Betadine Anesthesia 1% Lidocaine Volume Anesthetic (ccs) 10 Wound Debrided none Wound Repaired With NA Sterile Dressing Applied Yes Departure Departure Disposition DC Home or Self Care(routine) Clinical Impression Primary Impression: Abscess Condition STABLE Referrals Brigido VAUGHN,Ford Zaragoza (Family) Patient Instructions DI for Wound Infection Additional Instructions RETURN TO [facility] IN ONE FOR PACKING REMOVAL AND RECHECK. MEDICATIONS PRESCRIBED Discharge Counseling Counseled pt/family regarding diagnosis, home care, follow up needs Prescriptions Current Visit Scripts SULFAMETHOXAZOLE W/TRIMETHOPRI (Bactrim Ds Tab) 1 TABLET PO BID #20 TAB CLINDAMYCIN HCL (Clindamycin 150MG CAP) 150 MG PO TID #30 CAPSULE ED Critical Care Critical Care No at 1153
== END 2017-05-02 18:50 | disposition home or self-care (01) ==
LOC: ER 16:37
PROC: 0H9EXZZ Drainage of Left Lower Arm Skin, External Approach (ICD-10-PCS; principal; 2017-05-02)
DX: L02.414 Cutaneous abscess of left upper limb (principal)

== ENCOUNTER 2017-05-03 15:49 | Emergency (ER) | payer MEDICAID ==
--- OUTSIDE RECORDS SUMMARY | 2017-05-03 16:09 | External Medical Summary Rpt ---
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 Name Role Phone GERARDO PARK MD, PSC, Unavailable Unavailable GERARDO PARK MD, PSC ARNOLD YULISA, ARNOLD Unavailable Unavailable YULISA ARNOLD YULISA, ARNOLD Unavailable Unavailable YULISA MAHARAJ TER, MAHARAJ TER Unavailable Unavailable STEVEN ALL, STEVEN ALL Unavailable Unavailable DICK LUPILLO, Unavailable Unavailable DICK LUPILLO DUFF, DUFF Unavailable Unavailable DUFF ALEIDA, DUFF ALEIDA Unavailable Unavailable [facility] KARRIE CIFUENTES Unavailable Unavailable HARP MAKI ALEIDA, Unavailable Unavailable MAKI ALEIDA MAKI ALEIDA, Unavailable Unavailable MAKI ALEIDA FRYMAN EUG, FRYMAN Unavailable Unavailable EUG HOLLIS RODGER, HOLLIS Unavailable Unavailable RODGER [facility] Unavailable Unavailable INC, [facility] Unavailable [facility], [facility] VIVIEN MCKEON, Unavailable Unavailable VIVIEN MCKEON [facility], Unavailable Unavailable [facility] ROGERS, ROGERS Unavailable Unavailable ROGERS TRA, ROGERS TRA Unavailable Unavailable JACK QUEZADA MD, Unavailable Unavailable JACK QUEZADA MD [facility] Unavailable Unavailable [facility], [facility] LARKIN LALITO, LARKIN Unavailable Unavailable LALITO GEO WONG P, Unavailable Unavailable GEO WONG MULBERRY LIBORIO, Unavailable Unavailable MAIK LIBORIO [facility], [facility]available [facility]available [facility], [facility] Unavailable Unavailable [id number] [address] [id number], [facility] [id number] # [phone] SCHULSTAD CAM, Unavailable Unavailable SCHULSTAD CAM SOKAN, KRYSTAL O, Unavailable Unavailable SOKAN, KRYSTAL O SOTINGEANU HOLLY, Unavailable Unavailable S[facility]EANU HOLLY [facility] GAINES DON, Unavailable Unavailable GAINES DON GAINES DON, Unavailable Unavailable GAINES DON [facility] Unavailable Unavailable #591, [facility] # Unavailable Unavailable [id number], [facility] # [id number] [facility] Unavailable Unavailable DEPT [facility], [facility] DEPT [facility] Unavailable Unavailable DEPT [facility], [facility] DEPT [facility], [facility] Unavailable Unavailable Purpose Continuity of Care Document - 02-15-2009 through 2016 Problems Code Diagnosis DOS Provider Status Z539 PROCEDURE & 11-15-2016 [facility] NOT CARRIED INC OUT UNS REASON M5116 INTERVERTEB 09-20-2016 JULIANA ALEJANDRO MD, PSC D/O W/RADICULOP ATHY LUMB RGN J029 ACUTE 08-16-2016 [facility] PHARYNGITIS PHYSICIANS GROUP UNSPECIFIED R112 NAUSEA WITH 08-16-2016 [facility] VOMITING PHYSICIANS UNSPECIFIED GROUP R197 DIARRHEA 08-16-2016 [facility] UNSPECIFIED PHYSICIANS GROUP M549 DORSALGIA 07-19-2016 [facility] UNSPECIFIED PHYSICIANS GROUP M5136 OTH 07-13-2016 FILEMON ALEJANDRO MD, PSC RAL DISC DEGEN LUMBAR REGION J309 ALLERGIC 06-28-2016 [facility] RHINITIS PHYSICIANS UNSPECIFIED GROUP J381 POLYP OF 06-28-2016 [facility] VOCAL CORD PHYSICIANS AND LARYNX GROUP M5126 OT 06-28-2016 FILEMON ALEJANDRO MD, PSC RAL DISC DISPLACEMEN T LUMBAR RGN M5416 RADICULOPAT 06-28-2016 GERARDO PARK HY LUMBAR , PSC REGION Z720 TOBACCO USE 06-28-2016 [facility] PHYSICIANS GROUP M545 LOW BACK 06-11-2016 [facility] PAIN PHYSICIANS GROUP R499 UNSPECIFIED 06-11-2016 [facility] VOICE PHYSICIANS RESONANCE GROUP DISORDER J40 BRONCHITIS 03-24-2016 [facility] NOT PHYSICIANS SPECIFIED GROUP ACUTE OR CHRONIC J329 CHRONIC 02-23-2016 [facility] SINUSITIS PHYSICIANS UNSPECIFIED GROUP M5441 LUMBAGO 12-18-2015 [facility] WITH PHYSICIANS SCIATICA GROUP RIGHT SIDE R1011 RIGHT UPPER 12-18-2015 [facility] QUADRANT PHYSICIANS PAIN GROUP O68300 CELLULITIS 10-22-2015 [facility] LEFT PHYSICIANS, FINGER PLLC M5430 SCIATICA 10-01-2015 [facility] UNSPECIFIED [facility] M533 SACROCOCCYG 09-21-2015 [facility] MEDICAL DISORDERS IMAGING ASS [facility] [id number] PERSONAL 09-21-2015 [facility] NICOTINE INC DEPENDENCE J0190 ACUTE 09-16-2015 KEVIN MÁRQUEZ SINUSITIS UNSPECIFIED M542 CERVICALGIA 09-16-2015 KEVIN MÁRQUEZ V0481 NEED 07-16-2015 [facility] VACCINATION JEZ &INOCULATIO N FLU [...] CARE FACL 850.0 850.0 02-21-2013 [facility] CONCUSSION [facility] W/O [facility] E825.8 E825.8 MV 02-21-2013 [facility] N-TRAFF [facility] E849.8 E849.8 02-21-2013 [facility] ACCIDENT IN [facility] 93261 PAIN IN 01-12-2012 GAINES JOINT, DON SHOULDER REGION 8409 SPRAIN&STRA 01-12-2012 GAINES IN UNSPEC DON SITE SHOULDER&UP PER ARM 6929 CONTACT 10-01-2011 [facility] DERMATITIS& DON OTHER ECZEMA DUE UNSPEC CAUSE 7821 RASH AND 04-17-2011 [facility] OTHER ASSOCIATES NONSPECIFIC SKIN ERUPTION 4660 ACUTE 06-15-2010 [facility] BRONCHITIS DON 78094 SHORTNESS 06-15-2010 [facility] OF BREATH DON 91636 OTHER CHEST 06-15-2010 GAINES PAIN DON 69726 NAUSEA WITH 06-15-2010 [facility] VOMITING DON 7804 DIZZINESS 04-01-2010 [facility] GIDDINESS INC 9895 TOXIC 04-01-2010 [facility] EFFECT OF EMERGENCY VENOM SERVICES ASSOCIATES 5206 DISTURBANCE 03-12-2010 Rebekah MKCEON IN TOOTH VIVIEN [place] ERUPTION 94358 DENTAL 03-05-2010 TD MCKEON EXTENDING INTO PULP 5220 PULPITIS 03-05-2010 VIVIEN MCKEON 5253 RETAINED 03-05-2010 MCKEON, DENTAL ROOT VIVIEN W 8920 OPEN WOUND 01-26-2010 [facility] FT NO TOE EMERGENCY ALONE SERVICES WITHOUT ASSOCIATES MENTION COMP V065 NEED 01-26-2010 [facility] PROPHYLACTI [facility] C INC VACCINATION W/TETANUS-D [facility] 4871 INFLUENZA 07-22-2009 [facility] WITH OTHER EMERGENCY RESPIRATORY SERVICES ASSOCIATES MANIFESTATI ONS 4881 INFLUENZA 07-22-2009 [facility] D/T ID 2009 [facility] H1N1 INC INFLUENZA VIRUS 6820 CELLULITIS 05-27-2009 [facility] AND ABSCESS EMERGENCY OF FACE SERVICES ASSOC[facility]ATES 9221 CONTUSION 02-15-2009 [place] OF CHEST MEDICAL WALL IMAGING ASSOCIATES E8150 OTH MOTR 02-15-2009 [place] VEH HERI MEDICAL W/OBJ IMAGING HIWAY-INJUR 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 E8230 OTH MOTR 02-15-2009 [facility] VEH NONTRFF EMERGENCY HERI SERVICES W/STATION ASSOCIATES 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 E8490 PLACE OF 02-15-2009 [place] OCCURRENCE, MEDICAL HOME IMAGING ASSOCIATES L02.91 CUTANEOUS ABSCESS, UNSPECIFIED L03.019 CELLULITIS OF UNSPECIFIED FINGER M54.5 LOW BACK PAIN Allergies, Adverse Reactions, Alerts Type Allergy to [...] IN ti OB 15 1- 3- 00 IC ve EN 65 20 20 40 ZA 81 17 17 42 PH IL 0 42 AR IN MA E CY 10 MG TA BL ET ME 29 03 30 30 00 CL Ac LO 30 -3 -0 .0 00 IN ti XI 00 1- 3- 00 IC ve CA 12 20 20 [...] MG CA PS UL E GA 67 02 30 30 00 CL Ac BA 87 -0 -0 .0 00 IN ti PE 70 2- 3- 00 00 IC ve NT 22 20 20 41 IN 31 17 17 77 PH 0 72 AR 30 MA 0 CY MG CA PS UL E ME 14 11 02 30 30 00 CL Ac LO 30 -0 -0 .0 00 IN ti XI 00 2- 3- 00 00 IC ve CA 12 20 20 40 M 40 17 17 42 PH 7. 1 44 AR 5 MA MG CY TA BL ET CY 00 02 30 30 00 CL Ac CL 59 -0 -0 .0 00 IN ti OB 15 2- 3- 00 00 IC ve EN 65 20 20 40 ZA 81 17 17 42 PH IL 0 42 AR IN MA E CY 10 MG TA BL ET HY 00 01 02 60 [address] 60 -0 -0 .0 00 IN ti OC 33 3- 3- 00 00 IC ve OD 89 20 20 41 ON 03 17 17 79 PH -A 2 98 AR CE MA TA CY GA NO PH EN 5- 32 5 HY 00 12 01 60 [address] 60 -0 -0 .0 00 IN ti OC 33 1- 9- 00 00 IC ve OD 89 20 20 41 ON 03 16 17 20 PH -A 2 86 AR CE MA TA CY GA NO PH EN 5- 32 5 KE [...] CA PS 10 UL 05 E 91 [place] 00 08 08 5 6. [address] Ac OV 08 -3 -3 70 L- 84 EP ti EN 51 1- 1- 0 MA 20 HE ve TI 13 20 20 RT 9 NS L 20 10 10 HF 1 PH DO A AR N 90 MA R CY MC # G IN 10 MURILLO 05 LE 91 R 60 08 08 1 [address] Ac 25 -3 -3 0. L- 84 EP ti 80 1- 1- 00 MA 20 HE ve 23 20 20 0 RT 8 NS 91 10 10 6 PH DO AR N MA R CY # 10 05 91 AM 00 08 08 0 [address] Ac OX 78 -3 -3 .0 L- 84 EP ti IC 12 1- 1- 00 MA 20 HE ve IL 61 20 20 RT 7 NS LI 33 10 10 N 1 PH DO 50 AR N 0 MA R MG CY # CA PS 10 UL 05 E 91 OX 00 05 05 20 3 RI [...] 34 7- 7- 00 49 ER ve IL 59 20 20 AI SO ED 31 10 10 D N NI 5 PH RO SO AR BE LO MA RT NE CY W 4 03 MG 93 8 DO # SE 03 PK 93 IL 00 05 05 12 2 RI 83 [...] 10 5 WA 70 SO Ac GA 00 -0 -2 .0 L- 40 KA ti FL 40 6- 2- 00 MA 13 N ve U 80 20 20 RT 0 BA 75 08 09 09 BA 5 PH TU MG AR ND MA E CA CY O PS UL #5 E 91 IL 68 10 10 00 12 2 WA [...] E 00 05 05 00 15 5 MN 70 SO Ac 37 -0 -2 .0 L- 18 KA ti 80 2- 1- 00 MA 98 N ve 75 20 20 RT 4 BA 19 09 09 BA 3 PH TU AR ND MA E CY O #5 91 NA 00 05 05 00 10 5 WA 70 SO Ac IL 09 -0 -2 .0 L- 18 KA ti OX 30 2- 1- 00 MA 98 N ve EN 14 20 20 RT 5 BA 91 09 09 BA 50 0 PH TU 0 AR ND MG MA E CY O TA BL #5 ET 91 00 05 05 00 10 2 MN 44 SO Ac 40 -0 -2 .0 L- 76 KA ti 60 2- 1- 00 MA 36 N ve 35 20 20 RT 9 BA 70 09 09 BA 5 PH TU AR ND MA E CY O #5 91 Immunization Name Date Rout CVX Reac Dose Comm Prov Is Faci e tion ent ider Refu lity Give sed n IIV4 09-3 158 [facility] No [facility] 0-20 O O [...] Procedure DOS [place]X 51845 [facility] DX/THER [facility] SBST INC INC EPIDURAL/ SUBARACH LUMBAR/SA CRAL BLOOD 69836 [facility] COUNT 6 [facility] COMPLETE INC INC AUTO&AUTO DIFRNTL WBC COMPREHEN 54372 [facility] SIVE 6 [facility] METABOLIC INC INC PANEL DRUG TST G0477 [facility] PRESUMP;C 6 [facility] PBL BEING INC INC READ DC OPT OBV ONLY NJX 29687 [facility] DX/THER 6 [facility] MEM [...] INC READ DC OPT OBV ONLY MRI 99644 [facility] TRA SPINAL 6 CANAL ORTHOPAED LUMBAR ICS PSC W/O CONTRAST MATERIAL RADEX 09135 [facility] TRA SPINE 6 [place] LUMBOSACR ORTHOPAED AL 2/3 ICS PLC VIEWS INJECTION J1040 [facility] MAHARAJ TER 6 PHYSICIAN METHYLPRE S GROUP DNISOLONE ACETATE 80 MG THERAPEUT 10145 [facility] MAHARAJ TER IC 6 PHYSICIAN PROPHYLAC S GROUP TIC/DX INJECTION SUBQ/[place] [address] [place] STEVEN ALL ABDOMINAL 6 MEDICAL REAL IMAGING TIME ASS W/IMAGE LIMITED INCISION 68094 [facility] & 6 [facility] DRAINAGE INC INC ABSCESS SIMPLE/SI NGLE PHYSICAL 76568 [facility] THERAPY 5 [facility] EVALUATIO INC INC N INJECTION J1885 [facility] SCHERER 5 [facility] INE PER 15 MG THERAPEUT 18930 [facility] SCHERER IC 5 [facility] TIC/DX INJECTION SUBQ/IM CT LUMBAR 42721 [place] DICK SPINE 5 MEDICAL LUPILLO W/O IMAGING CONTRAST ASS MATERIAL THERAPEUT 09549 [facility] IC 5 [facility] PROPHYLAC INC INC TIC/DX INJECTION SUBQ/IM IIV4 VACC 19503 [facility] SPLIT 5 [facility] VIRUS 0.5 HLTH DEPT HLTH DEPT ML DOS JEZ JEZ FOR IM USE CHIROPRAC 37827 MAKI MAKI TIC 5 ALEIDA ALEIDA MANIPULAT PRANAV TX SPINAL 1-2 REGIONS CHIROPRAC 96503 MAKI MAKI TIC 5 ALEIDA ALEIDA MANIPULAT PRANAV TX SPINAL 1-2 REGIONS RADEX 15031 MAKI MAKI SPINE 5 ALEIDA ALEIDA LUMBOSACR AL 2/3 VIEWS RADEX 66567 GAINES GAINES SHOULDER 2 DON DON COMPLETE MINIMUM 2 VIEWS DEEP D9220 MIKE MCKEON SEDATION/ 0 , VIVIEN PUGA W W ANESTHESI A-1ST 30 MINUTES THER 98235 MIKE MCKEON PROPH/DX 0 , VIVIEN PUGA NJX IV W W PUSH SINGLE/1S T SBST/DRUG ORTHOPANT 92544 MIKE MCKEON OGRAM 0 , VIVIEN PUGA W IAADI 60156 [facility] INFLUENZA 9 [facility] B VIRUS INC INC IAADI 33516 [facility] INFFLUENZ 9 [facility] A A VIRUS INC INC RADEX 07213 [place] MARVIN, RIBS UNI 9 MEDICAL GEO P W/POSTERO IMAGING ANT CH ASSOCIATE MINIMUM 3 S VIEWS URNLS DIP 12011 [facility] STICK/TAB INC INC LET REAGENT AUTO MICROSCOP Y Encounters Encounter Start End Date Code Location Performer Type Date [facility] - 7 7 [facility] OUTPATIEN INC T OFFICE 79824 [facility] GALLARDO 7 7 [facility] T VISIT INC 10 MINUTES OFFICE 52772 GERARDO ANDERSONPATINYA 6 6 MD VIVIAN, T VISIT PSC 15 MINUTES [facility]O - 6 6 [facility] OUTPATIEN INC T [facility] LITO - 6 6 [facility] OUTPATIEN INC T OFFICE 99159 [facility] OUTPATIEN 6 6 [facility] T VISIT INC 10 MINUTES OFFICE 67417 [facility] FRYMAN OUTPATIEN 6 6 PHYSICIAN EUG T VISIT S GROUP 25 MINUTES OFFICE 97258 [facility] HOLLIS OUTPATIEN 6 6 PHYSICIAN RODGER T VISIT S GROUP 15 MINUTES [facility]OSPITAL [facility] - 6 6 [facility] OUTPATIEN INC T [facility] - 6 6 [facility] OUTPATIEN INC T OFFICE 89209 [facility] LARKIN OUTPATIEN 6 6 PHYSICIAN LALITO T NEW 20 S GROUP MINUTES OFFICE 46518 GERARDO SAMUEL ALEIDA OUTPATIEN 6 6 MD VIVIAN, T BANNER 30 PSC MINUTES OFFICE 74594 [facility] HOLLIS OUTPATIEN 6 6 PHYSICIAN RODGER T VISIT S GROUP 15 MINUTES OFFICE 42098 [facility] HOLLIS OUTPATIEN 6 6 PHYSICIAN RODGER T VISIT S GROUP 15 MINUTES [facility]OSPITAL [facility] - 6 6 [facility] OUTPATIEN INC T [facility] - 6 6 [facility] OUTPATIEN INC T OFFICE 02262 [facility] HOLLIS OUTPATIEN 6 6 PHYSICIAN RODGER T VISIT S GROUP 25 MINUTES OFFICE 30299 [facility] HOLLIS OUTPATIEN 6 6 PHYSICIAN RODGER T VISIT S GROUP 10 MINUTES [facility]OSPITAL [facility] - 6 6 [facility] OUTPATIEN INC T OFFICE 00099 [facility] HOLLIS OUTPATIEN 6 6 PHYSICIAN RODGER T VISIT S GROUP 15 MINUTES [facility]OSPITAL [facility] - 6 6 [facility] OUTPATIEN INC T OFFICE 32087 [facility] HOLLIS OUTPATIEN 6 6 PHYSICIAN RODGER T VISIT S GROUP 10 MINUTES OFFICE 48234 [facility] OUTPATIEN 6 6 T VISIT ORTHOPAED 15 ICS PSC MINUTES OFFICE 76829 [facility] TRA CONSULTAT 6 6 [place] ION ORTHOPAED NEW/ESTAB ICS PLC PATIENT 40 MIN OFFICE 07643 [facility] MAHARAJ TER OUTPATIEN 6 6 PHYSICIAN T VISIT S GROUP 15 MINUTES OFFICE 10034 [facility] SCHULSTAD OUTPATIEN 6 6 PHYSICIAN CAM T VISIT S GROUP 10 MINUTES [facility]OSPITAL [facility] - 6 6 [facility] OUTPATIEN INC T OFFICE 61522 [facility] SCHULSTAD OUTPATIEN 6 6 PHYSICIAN CAM T NEW 30 S GROUP MINUTES [facility]OSPITAL [facility] - 6 6 [facility] OUTPATIEN INC T EMERGENCY 46005 LIA JOHNSON 6 6 PHYSICIAN [facility] LO[facility], PLL[facility] T VISIT MODERATE SEVERITY [facility]OSPITAL [facility] - 5 5 [facility] OUTPATIEN INC T OFFICE 00320 [facility] SCHERER OUTPATINYA 5 5 [facility] T VISIT HOSPITAL 15 MINUTES HOSPITAL [facility] - 5 5 [facility] OUTPATIEN INC T EMERGENCY 98929 LIA YOON 5 5 PHYSICIAN LOYD LOYA S PLLC T VISIT HIGH/URGE NT SEVERITY OFFICE 46913 KEVIN GALLARDO 5 5 YULISA YULISA T VISIT 15 MINUTES OFFICE 03165 GLYNN MAKI OUTPATINYA 5 5 ALEIDA ALEIDA T NEW 20 MINUTES EMERGENCY 30292 [facility] 4 4 [facility] EMERGENCY T VISIT PHYS MODERATE SEVERITY OFFICE 89793 KEVIN GALLARDO 4 4 YULISA YULISA T VISIT 40 MINUTES Emergency MACRINA QUEZADA (ER) 3 13:42 3 14:28 [facility] A OFFICE 89457 GAINES GAINES OUTPATIEN 2 2 DON DON T VISIT 15 MINUTES OFFICE 46053 LIANA ARAUJOS OUTPATIEN 1 1 DON DON T VISIT 15 MINUTES OFFICE 93324 [facility] OUTPATIEN 1 1 CARE LIBORIO T VISIT ASSOCIATE 15 S MINUTES OFFICE 95860 LIANA ARAUJOS OUTPATIEN 0 0 DON DON T NEW 20 MINUTES EMERGENCY 96276 [facility] 0 0 [facility] DEPARTMEN INC T VISIT MODERATE SEVERITY [facility]OSPITAL [facility] - 0 0 [facility] OUTPATIEN INC T EMERGENCY 33089 [facility] [place], 0 0 EMERGENCY [facility] DEPARTMEN SERVICES O T VISIT HIGH/URGE ASSOCIATE NT S SEVERITY OFFICE 41450 MIKE MCKEON OUTPATIEN 0 0 , VIVIEN PUGA NEW 10 W W MINUTES EMERGENCY 77606 [facility] 0 0 [facility] DEPARTMEN INC T VISIT LIMITED/M INOR PROB HOSPITAL [facility] - 0 0 [facility] OUTPATIEN INC T EMERGENCY 53337 AN[facility]ES [place], 0 0 EMERGENCY [facility]ST[facility] DEPARTMEN SERVICES O T VISIT HIGH/URGE ASSOCIATE NT S SEVERITY [facility]OSPITAL [facility] - 9 9 [facility] OUTPATIEN INC T EMERGENCY 14799 [facility] 9 9 [facility] DEPARTMEN INC T VISIT LOW/MODER SEVERITY EMERGENCY 40671 ANG[facility]ES [place], 9 9 EMERGENCY [facility] DEPARTMEN SERVICES O T VISIT MODERATE ASSOCIATE SEVERITY S EMERGENCY 47964 [facility] 9 9 [facility] DEPARTMEN INC T VISIT LOW/MODER SEVERITY EMERGENCY 26730 [facility] [place], 9 9 EMERGENCY [facility] DEPARTMEN SERVICES O T VISIT HIGH/URGE ASSOCIATE NT S SEVERITY [facility]OSPITAL [facility] - 9 9 [facility] OUTPATIEN INC T EMERGENCY 19746 [facility] 9 9 [facility] DEPARTMEN INC T VISIT LOW/MODER SEVERITY EMERGENCY 80061 ANGELES [place]ANKLIN, 9 9 EMERGENCY [facility] DEPARTMEN SERVICES O T VISIT MODERATE ASSOCIATE SEVERITY [facility] LITO - 9 9 [facility] OUTPATIEN INC T
--- OUTSIDE RECORDS SUMMARY | 2017-05-03 16:09 | External Medical Summary Rpt ---
Author Author , BEATRIS SPEAR Address Unknown Phone [email or web address] Care Team Providers Care Foundry Equipment Mechanic Name Role Phone GERARDO PARK MD, PSC, [...] EUG HOLLIS RODGER, HOLLIS Unavailable Unavailable RODGER [facility] Unavailable Unavailable INC, [facility] Un[facility], [facility] VIVIEN MCKEON, Unavailable Unavailable VIVIEN MCKEON [facility], Unavailable Unavailable [facility] ROGERS, ROGERS Unavailable Unavailable ROGERS TRA, R[facility]ERS TRA Unavailable Unavailable JACK QUEZADA MD, Unavailable Unavailable JACK QUEZADA MD [facility] Unavailable Unavailable IM[facility]ING [facility], [facility] LARKIN LALITO, LARKIN Unavailable Unavailable LALITO GEO WONG P, Unavailable Unavailable GEO WONG MULBERRY LIBORIO, Unavailable Unavailable MAIK LIBORIO [facility], [facility]available [facility]available [facility], [facility] Unavailable Unavailable [id number] [address] [id number], [facility] [id number] # [id number] SCHULST[facility] CAM, Unavailable Unavailable [facility] CAM SOKAN, KRYSTAL O, Unavailable Unavailable SOKAN, KRYSTAL O SOTINGEANU HOLLY, Unavailable Unavailable SOTINGEANU HOLLY [facility] GAINES DON, Unavailable Unavailable GAINES DON GAINES DON, Unavailable Unavailable GAINES DON [facility] Unavailable Unavailable #591, [facility]591 [facility] # Unavailable Unavailable [id number], [facility] # [id number] [facility] Unavailable Unavailable [facility], [facility] DEPT [facility] Unavailable Unavailable [facility], [facility] Unavailable Unavailable Purpose Continuity of Care Document - 02-15-2009 through 2016 Problems Code Diagnosis DOS Provider Status Z539 PROCEDURE & 11-15-2016 [facility] NOT CARRIED INC OUT UNS REASON M5116 INTERVERTEB 09-20-2016 JULIANA ALEJANDRO MD, PSC D/O W/RADICULOP ATHY LUMB RGN J029 ACUTE 08-16-2016 [facility] PHARYNGITIS PHYSICIANS GROUP UNSPECIFIED R112 NAUSEA WITH 08-16-2016 [facility] VOMITING PHYSICIANS UNSPECIFIED GROUP R197 DIARRHEA 08-16-2016 [facility] UNSPECIFIED PHYSICIANS GROUP M549 DORSALGIA 07-19-2016 [facility] UNSPECIFIED PHYSICIANS GROUP M5136 OTH 07-13-2016 FILEMON ALEJANDRO MD, PSC RAL DISC DEGEN LUMBAR REGION J309 ALLERGIC 06-28-2016 [facility] RHINITIS PHYSICIANS UNSPECIFIED GROUP J381 POLYP OF 06-28-2016 [facility] VOCAL CORD PHYSICIANS AND LARYNX GROUP M5126 OT 06-28-2016 FILEMON ALEJANDRO MD, PSC RAL DISC DISPLACEMEN T LUMBAR RGN M5416 RADICULOPAT 06-28-2016 GERARDO PARK HY LUMBAR , PSC REGION Z720 TOBACCO USE 06-28-2016 [facility] M545 LOW BACK 06-11-2016 [facility] PAIN PHYSICIANS GROUP R499 UNSPECIFIED 06-11-2016 [facility] VOICE PHYSICIANS RESONANCE GROUP DISORDER J40 BRONCHITIS 03-24-2016 [facility] NOT PHYSICIANS SPECIFIED GROUP ACUTE OR CHRONIC J329 CHRONIC 02-23-2016 [facility] SINUSITIS PHYSICIANS UNSPECIFIED GROUP M5441 LUMBAGO 12-18-2015 [facility] WITH PHYSICIANS SCIATICA GROUP RIGHT SIDE R1011 RIGHT UPPER 12-18-2015 [facility] QUADRANT PHYSICIANS PAIN GROUP [id number] CELLULITIS 10-22-2015 [facility] OF LEFT PHYSICIANS, FINGER PLLC M5430 SCIATICA 10-01-2015 [facility] UNSPECIFIED [facility] M533 SACROCOCCYG 09-21-2015 [facility] MEDICAL DISORDERS IMAGING ASS [facility] [id number] PERSONAL 09-21-2015 [facility] HISTORY OF [facility] NICOTINE INC DEPENDENCE J0190 ACUTE 09-16-2015 KEVIN MÁRQUEZ SINUSITIS UNSPECIFIED M542 CERVICALGIA 09-16-2015 KEVIN MÁRQUEZ V0481 NEED 07-16-2015 [facility]LA[facility]I [facility] DEPT VACCINATION JEZ &INOCULATIO N FLU [...] CARE FACL 850.0 850.0 02-21-2013 Lito CONCUSSION [facility] W/O [facility] E825.8 E825.8 MV 02-21-2013 Lito N-TRAFF [facility] E849.8 E849.8 02-21-2013 Lito ACCIDENT IN [facility] 28425 PAIN IN 01-12-2012 GAINES JOINT, DON SHOULDER REGION 8409 SPRAIN&STRA 01-12-2012 GAINES IN UNSPEC DON SITE SHOULDER&UP PER ARM 6929 CONTACT 10-01-2011 [facility] DERMATITIS& DON OTHER ECZEMA DUE UNSPEC CAUSE 7821 RASH AND 04-17-2011 [facility] OTHER [facility] NONSPECIFIC SKIN ERUPTION 4660 ACUTE 06-15-2010 GA[facility] BRONCHITIS DON 22729 SHORTNESS 06-15-2010 GAIN[facility] OF BREATH DON 49378 OTHER CHEST 06-15-2010 GAINES PAIN DON 27280 NAUSEA WITH 06-15-2010 GA[facility] VOMITING DON 7804 DIZZINESS 04-01-2010 [facility] AND [facility] GIDDINESS INC 9895 TOXIC 04-01-2010 [facility] EFFECT OF EMERGENCY VENOM SERVICES ASSOCIATES 5206 DISTURBANCE 03-12-2010 Rebekah MCKEON IN TOOTH VIVIEN [place] ERUPTION 59586 DENTAL 03-05-2010 TD MCKEON EXTENDING INTO PULP 5220 PULPITIS 03-05-2010 VIVIEN MCKEON 5253 RETAINED 03-05-2010 MCKEON, DENTAL ROOT VIVIEN W 8920 OPEN WOUND 01-26-2010 [facility] FT NO TOE EMERGENCY ALONE SERVICES WITHOUT ASSOCIATES MENTION COMP V065 NEED 01-26-2010 [facility] PROPHYLACTI [facility] C INC VACCINATION W/TETANUS-D [facility] 4871 INFLUENZA 07-22-2009 [facility] WITH OTHER EMERGENCY RESPIRATORY SERVICES ASSOCIATES MANIFESTATI ONS 4881 INFLUENZA 07-22-2009 [facility] D/T ID 2009 [facility] H1N1 INC INFLUENZA VIRUS 6820 CELLULITIS 05-27-2009 [facility] AND ABSCESS EMERGENCY OF FACE SERVICES ASSOC[facility]ATES 9221 CONTUSION 02-15-2009 [place] OF CHEST MEDICAL WALL IMAGING ASSOCIATES E8150 OTH MOTR 02-15-2009 [place] VEH HERI MEDICAL W/OBJ IMAGING HIWAY-INJUR 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 E8230 OTH MOTR 02-15-2009 [facility] VEH NONTRFF EMERGENCY HERI SERVICES W/STATION ASSOCIATES OBJ-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 25 WA [...] R 60 08 08 [address] Ac 25 -3 -3 0. L- 84 EP ti 80 1- 1- 00 MA 20 HE ve 23 20 20 0 RT 8 NS 91 10 10 6 PH DO AR N MA R CY # 10 05 91 AM 00 08 08 0 [address] Ac OX 78 -3 -3 [...] 34 7- 7- 00 49 ER ve WA 59 20 20 AI SO ED 31 10 10 D N NI 5 PH RO SO AR BE LO MA RT NE CY W 4 03 MG 93 8 DO # SE 03 PK 93 WA 00 05 05 12 2 RI 83 [...] 00 10 5 WA 70 SO Ac VT 00 -0 -2 .0 L- 40 KA ti FL 40 6- 2- 00 MA 13 N ve U 80 20 20 RT 0 BA 75 08 09 09 BA 5 PH TU MG AR ND MA E CA CY O PS UL #5 E 91 WA 68 10 10 00 12 2 WA [...] E 00 05 05 00 15 5 DE 70 SO Ac 37 -0 -2 .0 L- 18 KA ti 80 2- 1- 00 MA 98 N ve 75 20 20 RT 4 BA 19 09 09 BA 3 PH TU AR ND MA E CY O #5 91 NA 00 05 05 00 10 5 WA 70 SO Ac WA 09 -0 -2 .0 L- 18 KA ti OX 30 2- 1- 00 MA 98 N ve EN 14 20 20 RT 5 BA 91 09 09 BA 50 0 PH TU 0 AR ND MG MA E CY O TA BL #5 ET 91 00 05 05 00 10 2 DE 44 SO Ac 40 -0 -2 .0 [...] Procedure DOS Code [place]X 26167 [facility] DX/THER [facility] SBST INC INC EPIDURAL/ SUBARACH LUMBAR/SA CRAL BLOOD 13647 [facility] COUNT 6 [facility] COMPLETE INC INC AUTO&AUTO DIFRNTL WBC COMPREHEN 11840 [facility] SIVE 6 [facility] METABOLIC INC INC PANEL DRUG TST G0477 [facility] PRESUMP;C 6 [facility] PBL BEING INC INC READ DC OPT OBV ONLY NJX 52619 [facility] DX/THER 6 [facility] MEM [...] INC READ DC OPT OBV ONLY MRI 41439 [facility] TRA SPINAL 6 CANAL ORTHOPAED LUMBAR ICS PSC W/O CONTRAST MATERIAL RADEX 74346 [facility] TRA SPINE 6 [place] LUMBOSACR ORTHOPAED AL 2/3 ICS PLC VIEWS INJECTION J1040 [facility] MAHARAJ TER 6 PHYSICIAN METHYLPRE S GROUP DNISOLONE ACETATE 80 MG THERAPEUT 25346 [facility] MAHARAJ TER IC 6 PHYSICIAN PROPHYLAC S GROUP TIC/DX INJECTION SUBQ/[place] [address] [place] STEVEN ALL ABDOMINAL 6 MEDICAL REAL IMAGING TIME ASS W/IMAGE LIMITED INCISION 12733 [facility] & 6 [facility] DRAINAGE INC INC ABSCESS SIMPLE/SI NGLE PHYSICAL 06742 [facility] THERAPY 5 [facility] EVALUATIO INC INC N INJECTION J1885 [facility] SCHERER 5 [facility] IN[facility] PER 15 MG THERAPEUT 65507 [facility] SCHERER IC 5 [facility] TIC/DX INJECTION SUBQ/IM CT LUMBAR 14827 [place] DICK SPINE 5 MEDICAL LUPILLO W/O IMAGING CONTRAST ASS MATERIAL THERAPEUT 53367 [facility] IC 5 [facility] PROPHYLAC INC INC TIC/DX INJECTION SUBQ/IM IIV4 VACC 86691 [facility] SPLIT [facility] VIRUS 0.5 HLTH DEPT HLTH DEPT ML DOS JEZ JEZ FOR IM USE CHIROPRAC 86478 MAKI MAKI TIC 5 ALEIDA ALEIDA MANIPULAT PRANAV TX SPINAL 1-2 REGIONS CHIROPRAC 28893 MAKI MAKI TIC 5 ALEIDA ALEIDA MANIPULAT PRANAV TX SPINAL 1-2 REGIONS RADEX 25750 MAKI MAKI SPINE 5 ALEIDA ALEIDA LUMBOSACR AL 2/3 VIEWS RADEX 11028 GAINES GAINES SHOULDER 2 DON DON COMPLETE MINIMUM 2 VIEWS DEEP D9220 MIKE MCKEON SEDATION/ 0 , VIVIEN PUGA W W ANESTHESI A-1ST 30 MINUTES THER 15072 MIKE MCKEON PROPH/DX 0 , VIVIEN PUGA NJX IV W W PUSH SINGLE/1S T SBST/DRUG ORTHOPANT 06803 MIKE MCKEON OGRAM 0 , VIVIEN PUGA W IAADI 50622 [facility] INFLUENZA 9 [facility] B VIRUS INC INC IAADI 87934 [facility] INFFLUENZ 9 [facility] A A VIRUS INC INC RADEX 45608 [place] MARVIN, RIBS UNI 9 MEDICAL GEO P W/POSTERO IMAGING ANT CH ASSOCIATE MINIMUM 3 S VIEWS URNLS DIP 80134 [facility] STICK/TAB INC INC LET REAGENT AUTO MICROSCOP Y Encounters Encounter Start End Date Code Location Performer Type Date [facility] - 7 7 [facility] OUTPATIEN INC T OFFICE 30714 [facility] GALLARDO 7 7 [facility] T VISIT INC 10 MINUTES OFFICE 27106 GERARDO ANDERSONPATINYA 6 6 MD VIVIAN, T VISIT PSC 15 MINUTES [facility] - 6 6 [facility] OUTPATIEN INC T [facility] - 6 6 [facility] OUTPATIEN INC T OFFICE 46539 [facility] OUTPATIEN 6 6 [facility] T VISIT INC 10 MINUTES OFFICE 98588 [facility] FRYMAN OUTPATIEN 6 6 PHYSICIAN EUG T VISIT S GROUP 25 MINUTES OFFICE 87932 [facility] HOLLIS OUTPATIEN 6 6 PHYSICIAN RODGER T VISIT S GROUP 15 MINUTES [facility]OSP[facility] - 6 6 [facility] OUTPATIEN INC T [facility] 6 6 [facility] OUTPATIEN INC T OFFICE 72672 [facility] LARKIN OUTPATIEN 6 6 PHYSICIAN LALITO T NEW 20 S GROUP MINUTES OFFICE 71675 GERARDO SAMUEL ALEIDA OUTPATIEN 6 6 MD VIVIAN, T [facility] 30 PSC MINUTES OFFICE 83564 [facility] HOLLIS OUTPATIEN 6 6 PHYSICIAN RODGER T VISIT S GROUP 15 MINUTES OFFICE 93969 [facility] HOLLIS OUTPATIEN 6 6 PHYSICIAN RODGER T VISIT S GROUP 15 MINUTES [facility] - 6 6 [facility] OUTPATIEN INC T [facility] - 6 6 [facility] OUTPATIEN INC T OFFICE 15245 [facility] HOLLIS OUTPATIEN 6 6 PHYSICIAN RODGER T VISIT S GROUP 25 MINUTES OFFICE 61136 [facility] HO[place]IS OUTPATIEN 6 6 PHYSICIAN RODGER T VISIT S GROUP 10 MINUTES [facility]OSPITAL [facility] - 6 6 [facility] OUTPATIEN INC T OFFICE 89839 [facility] HOLLIS OUTPATIEN 6 6 PHYSICIAN RODGER T VISIT S GROUP 15 MINUTES [facility] - 6 6 [facility] OUTPATIEN INC T OFFICE 52977 [facility] HOLLIS OUTPATIEN 6 6 PHYSICIAN RODGER T VISIT S GROUP 10 MINUTES OFFICE 08267 [facility] OUTPATIEN 6 6 T VISIT ORTHOPAED 15 ICS PSC MINUTES OFFICE 58267 [facility] TRA CONSULTAT 6 6 [place] ION ORTHOPAED NEW/ESTAB ICS PLC PATIENT 40 MIN OFFICE 49154 [facility] MAHARAJ TER OUTPATIEN 6 6 PHYSICIAN T VISIT S GROUP 15 MINUTES OFFICE 26413 [facility] SCHULSTAD OUTPATIEN 6 6 PHYSICIAN CAM T VISIT S GROUP 10 MINUTES HOSPITAL [facility] - 6 6 [facility] OUTPATIEN INC T OFFICE 83984 [facility] SCHULSTAD OUTPATIEN 6 6 PHYSICIAN CAM T NEW 30 S GROUP MINUTES [facility]OSPITAL [facility] - 6 6 [facility] OUTPATIEN INC T EMERGENCY 29654 LIA JOHNSON 6 6 PHYSICIAN Serenity LOYA S, PLLC T VISIT MODERATE SEVERITY [facility]OSPITAL [facility] - 5 5 [facility] OUTPATIEN INC T OFFICE 63423 [facility] SCHERER OUTPATINYA 5 5 [facility] T VISIT HOSPITAL 15 MINUTES HOSPITAL [facility] - 5 5 [facility] OUTPATIEN INC T EMERGENCY 65856 LIA YOON 5 5 PHYSICIAN LOYD LOYA S PLLC T VISIT HIGH/URGE NT SEVERITY OFFICE 63234 KEVIN GALLARDO 5 5 YULISA YULISA T VISIT 15 MINUTES OFFICE 90656 GLYNN MAKI OUTPATINYA 5 5 ALEIDA ALEIDA T NEW 20 MINUTES EMERGENCY 35874 [facility] 4 4 [facility] EMERGENCY T VISIT PHYS MODERATE SEVERITY OFFICE 50151 KEVIN GALLARDO 4 4 YULISA YULISA T VISIT 40 MINUTES Emergency MACRINA QUEZADA (ER) 3 13:42 3 14:28 [facility] A OFFICE 26756 GAINES GAINES OUTPATIEN 2 2 DON DON T VISIT 15 MINUTES OFFICE 74806 LIANA ARAUJOS OUTPATIEN 1 1 DON DON T VISIT 15 MINUTES OFFICE 53269 [facility] OUTPATIEN 1 1 [facility]ARE [facility] T VISIT ASSOCIATE 15 S MINUTES OFFICE 66226 LIANA ARAUJOS OUTPATIEN 0 0 DON DON T NEW 20 MINUTES EMERGENCY 67265 [facility] 0 0 [facility] DEPARTMEN INC T VISIT MODERATE SEVERITY [facility]OSPITAL [facility] - 0 0 [facility] OUTPATIEN INC T EMERGENCY 54130 ANGELES [place], 0 0 EMERGENCY [facility] DEPARTMEN SERVICES O T VISIT HIGH/URGE ASSOCIATE NT S SEVERITY OFFICE 34386 MIKE MCKEON OUTPATIEN 0 0 , VIVIEN PUGA NEW 10 W W MINUTES EMERGENCY 96389 [facility] 0 0 [facility] DEPARTMEN INC T VISIT LIMITED/M INOR PROB HOSPITAL [facility] - 0 0 [facility] OUTPATIEN INC T EMERGENCY 54017 ANGELES FRANKLIN, 0 0 EMERGENCY [facility] DEPARTMEN SERVICES O T VISIT HIGH/URGE ASSOCIATE NT S SEVERITY [facility]OSPITAL [facility] - 9 9 [facility] OUTPATIEN INC T EMERGENCY 30340 [facility] 9 9 [facility] DEPARTMEN INC T VISIT LOW/MODER SEVERITY EMERGENCY 15981 ANGELES [place]LIN, 9 9 EMERGENCY [facility] DEPARTMEN SERVICES O T VISIT MODERATE ASSOCIATE SEVERITY S EMERGENCY 08416 [facility] 9 9 [facility] DEPARTMEN INC T VISIT LOW/MODER SEVERITY EMERGENCY 12122 ANGELES [place], 9 9 EMERGENCY [facility] DEPARTMEN SERVICES O T VISIT HIGH/URGE ASSOCIATE NT S SEVERITY [facility]OSPITAL [facility] - 9 9 [facility] OUTPATIEN INC T EMERGENCY 67831 [facility] 9 9 [facility] DEPARTMEN INC T VISIT LOW/MODER SEVERITY EMERGENCY 71061 ANGELES [place]ANKLIN, 9 9 EMERGENCY [place] DEPARTMEN SERVICES O T VISIT MODERATE ASSOCIATE SEVERITY [facility] LITO - 9 9 [facility] OUTPATIEN INC T
--- OUTSIDE RECORDS SUMMARY | 2017-05-03 16:11 | External Medical Summary Rpt ---
Author Author , BEATRIS SPEAR Address Unknown Phone [email or web address] Care Team Providers Care Social Media Strategist Name Role Phone GERARDO PARK MD, PSC, [...] ALEIDA FRYMAN EUG, FRYMAN Unavailable Unavailable EUG HOLILS RODGER, HOLLIS Unavailable Unavailable RODGER [facility] Unavailable Unavailable INC, [facility] Unavailable [facility], [facility] VIVIEN MCKEON, Unavailable Unavailable VIVIEN MCKEON [facility], Unavailable Unavailable [facility] ROGERS, ROGERS Unavailable Unavailable ROGERS TRA, [facility] Unavailable Unavailable [facility] Unavailable Unavailable [facility], [facility] LARKIN LALITO, LARKIN Unavailable Unavailable LALITO GOE WONG P, Unavailable Unavailable GEO WONGI, Unavailable Unavailable [facility], [facility]available [facility]available [facility], [facility] Unavailable Unavailable [id number] [address] [phone], [facility] [id number] [address] [phone] SCHULSTAD CAM, Unavailable Unavailable SCHULSTAD CAM SOKAN, KRYSTAL O, Unavailable Unavailable SOKAN, KRYSTAL O [facility] GAINES DON, Unavailable Unavailable GAINES DON GAINES DON, Unavailable Unavailable GAINES DON [facility] Unavailable Unavailable #591, [facility]591 [facility] # Unavailable Unavailable [id number], [facility] # [id number] [facility] Unavailable [facility]available [facility] DEPT [facility] Unavailable [facility]available [facility] ROSMERY HOLT, ROSMERY HOLT Unavailable Unavailable Purpose Continuity of Care Document - 02-15-2009 through 2016 Problems Code Diagnosis DOS Provider Status Z539 PROCEDURE & 11-15-2016 [facility] NOT CARRIED INC OUT UNS REASON M5116 INTERVERTEB 09-20-2016 GERARDO PARK RAL DISC , PSC D/O W/RADICULOP ATHY LUMB RGN J029 ACUTE 08-16-2016 [facility] PHARYNGITIS PHYSICIANS GROUP UNSPECIFIED R112 NAUSEA WITH 08-16-2016 [facility] VOMITING PHYSICIANS UNSPECIFIED GROUP R197 DIARRHEA 08-16-2016 [facility] UNSPECIFIED PHYSICIANS GROUP M549 DORSALGIA 07-19-2016 [facility] UNSPECIFIED PHYSICIANS GROUP M5136 OT 07-13-2016 FILEMON ALEJANDRO MD, PSC RAL DISC DEGEN LUMBAR REGION J309 ALLERGIC 06-28-2016 [facility] RHINITIS PHYSICIANS UNSPECIFIED GROUP J381 POLYP OF 06-28-2016 [facility] VOCAL CORD PHYSICIANS AND LARYNX GROUP M5126 OT 06-28-2016 FILEMON ALEJANDRO MD, PSC RAL DISC DISPLACEMEN T LUMBAR RGN M5416 RADICULOPAT 06-28-2016 GERARDO PARK, HY LUMBAR , PSC REGION Z720 TOBACCO USE 06-28-2016 [facility] M545 LOW BACK 06-11-2016 [facility] PAIN PHYSICIANS GROUP R499 UNSPECIFIED 06-11-2016 [facility] VOICE PHYSICIANS RESONANCE GROUP DISORDER J40 BRONCHITIS 03-24-2016 [facility] NOT PHYSICIANS SPECIFIED GROUP ACUTE OR CHRONIC J329 CHRONIC 02-23-2016 [facility] SINUSITIS PHYSICIANS UNSPECIFIED GROUP M5441 LUMBAGO 12-18-2015 [facility] WITH PHYSICIANS SCIATICA GROUP RIGHT SIDE R1011 RIGHT UPPER 12-18-2015 [facility] QUADRANT PHYSICIANS PAIN GROUP V28099 CELLULITIS 10-22-2015 [facility] OF LEFT PHYSICIANS, FINGER PLLC M5430 SCIATICA 10-01-2015 [facility] M533 SACROCOCCYG 09-21-2015 [facility] MEDICAL DISORDERS IMAGING ASS NEC X17127 PERSONAL 09-21-2015 [facility] NICOTINE INC DEPENDENCE J0190 ACUTE 09-16-2015 ARNOLD YULISA SINUSITIS UNSPECIFIED M542 CERVICALGIA 09-16-2015 KEVIN MÁRQUEZ V0481 NEED 07-16-2015 [facility] DEPT VACCINATION JEZ &INOCULATIO N FLU 7242 LUMBAGO 06-07-2015 MAKI LAEIDA 7393 NONALLOPATH 06-07-2015 MAKI IC LESION ALEIDA OF LUMBAR REGION NEC 7395 NONALLOPATH 06-07-2015 MAKI IC LESION ALEIDA OF PELVIC REGION NEC 462 ACUTE 07-01-2014 [facility] PH[facility]ERGENCY PHYS 4739 UNSPECIFIED 07-01-2014 [facility] SINUSITIS N EMERGENCY PHYS V700 ROUTINE 03-29-2014 KEVIN MÁRQUEZ GENERAL MEDICAL EXAM@HEALTH CARE FACL 42013 PAIN IN 01-12-2012 [facility] JOINT, DON SHOULDER REGION 8409 SPRAIN&STRA 01-12-2012 GAINES IN UNSPEC DON SITE SHOULDER&UP PER ARM 6929 CONTACT 10-01-2011 [facility] DERMATITIS& DON OTHER ECZEMA DUE UNSPEC CAUSE 7821 RASH AND 04-17-2011 [facility] OTHER ASSOCIATES NONSPECIFIC SKIN ERUPTION 4660 ACUTE 06-15-2010 [facility] BRONCHITIS DON 22455 SHORTNESS 06-15-2010 [facility] OF BREATH DON 16787 OTHER CHEST 06-15-2010 GAIN[facility] PAIN DON 51704 NAUSEA WITH 06-15-2010 [facility] VOMITING DON 7804 DIZZINESS 04-01-2010 [facility] GIDDINESS INC 9895 TOXIC 04-01-2010 [facility] EFFECT OF EMERGENCY VENOM SERVICES ASSOCIATES 5206 DISTURBANCE 03-12-2010 Rebekah MCKEON IN TOOTH VIV[place] [place] ERUPTION 70465 DENTAL 03-05-2010 MIKE CARIES [facility] [place] EXTENDING INTO PULP 5220 PULPITIS 03-05-2010 VIVIEN MCKEON 5253 RETAINED 03-05-2010 MIKE DENTAL ROOT VIVIEN [place] 8920 OPEN WOUND 01-26-2010 [facility] FT NO TOE EMERGENCY ALONE SERVICES WITHOUT ASSOCIATES MENTION COMP V065 NEED 01-26-2010 [facility] PROPHYLACTI [facility] C INC VACCINATION W/TETANUS-D [facility] 4871 INFLUENZA 07-22-2009 [facility] WITH OTHER EMERGENCY RESPIRATORY SERVICES ASSOCIATES MANIFESTATI ONS 4881 INFLUENZA 07-22-2009 [facility] D/T ID 2008 [facility] H1N1 INC INFLUENZA VIRUS 6820 CELLULITIS 05-27-2009 [facility] AND ABSCESS EMERGENCY OF FACE SERVICES ASSOCIATES 9221 CONTUSION 02-15-2009 [facility] MEDICAL WALL IMAGING ASSOCIATES E8150 OTH MOTR 02-15-2009 [facility] W/OBJ IMAGING HIWAY-INJUR ASSOCIATES ING WINDOW SYSTEMS 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 25 WA [...] 34 7- 7- 00 49 ER ve NC 59 20 20 AI SO ED 31 10 10 D N NI 5 PH RO SO AR BE LO MA RT NE CY W 4 03 MG 93 8 DO # SE 03 PK 93 NC 00 05 05 12 2 RI 83 [...] 00 10 5 WA 70 SO Ac IN 00 -0 -2 .0 L- 40 KA ti FL 40 6- 2- 00 MA 13 N ve U 80 20 20 RT 0 BA 75 08 09 09 BA 5 PH TU MG AR ND MA E CA CY O PS UL #5 E 91 NC 68 10 10 00 12 2 WA [...] 00 10 5 WA 70 SO Ac NC 09 -0 -2 .0 L- 18 KA [...] Procedure DOS Code Location Performer [place] NJX [address] GERARDO PARK DX/THER 6 MD VIVIAN, SBST PSC EPIDURAL/ SUBARACH LUMBAR/SA CRAL BLOOD 89911 [facility] COUNT [facility] COMPLETE INC INC AUTO&AUTO DIFRNTL WBC COMPREHEN 27828 [facility] SIVE 6 [facility] METABOLIC INC INC PANEL DRUG TST G0477 [facility] PRESUMP;C 6 [facility] PBL BEING INC INC READ DC OPT OBV ONLY NJX 93597 GERARDO SAMUEL ALEIDA DX/THER 6 MD VIVIAN, [...] INC READ DC OPT OBV ONLY MRI 66407 [facility] TRA SPINAL 6 CANAL ORTHOPAED LUMBAR ICS PSC W/O CONTRAST MATERIAL RADEX 46961 [facility] TRA SPINE 6 [place] LUMBOSACR ORTHOPAED AL 2/3 ICS PLC VIEWS THERAPEUT 32058 [facility] [place] IC 6 PHYSICIAN PROPHYLAC S GROUP TIC/DX INJECTION SUBQ/IM INJECTION J1040 [facility] [place] 6 PHYSICIAN METHYLPRE S GROUP DNISOLONE ACETATE 80 [place] [address] [facility] ABDOMINAL 6 [facility] REAL INC INC TIME W/IMAGE LIMITED INCISION 34809 [facility] & 6 [facility] DRAINAGE INC INC ABSCESS SIMPLE/SI NGLE PHYSICAL 01382 [facility] THERAPY 5 [facility] EVALUATIO INC INC N INJECTION J1885 [facility] SCHERER 5 [facility] INE PER 15 MG THERAPEUT 04932 [facility] SCHERER IC 5 [facility] TIC/DX INJECTION SUBQ/IM CT LUMBAR 89521 [facility] DICK SPINE 5 MEDICAL LUPILLO W/O IMAGING CONTRAST ASS MATERIAL THERAPEUT 22472 [facility] IC 5 [facility] PROPHYLAC INC INC TIC/DX INJECTION SUBQ/IM IIV4 VACC 48637 [facility] VIRUS 0.5 HLTH DEPT HLTH DEPT ML DOS JEZ JEZ FOR IM USE CHIROPRAC 14824 MAKI MAKI TIC 5 ALEIDA ALEIDA MANIPULAT PRANAV TX SPINAL 1-2 REGIONS RADEX 65341 MAKI MAKI SPINE 5 ALEIDA ALEIDA LUMBOSACR AL 2/3 VIEWS CHIROPRAC 82617 MAKI MAKI TIC 5 ALEIDA ALEIDA MANIPULAT PRANAV TX SPINAL 1-2 REGIONS RADEX 67061 GAINES GAINES SHOULDER 2 DON DON COMPLETE MINIMUM 2 VIEWS THER 71588 MIKE MCKEON PROPH/DX 0 , VIVIEN PUGA NJX IV W W PUSH SINGLE/1S T SBST/DRUG DEEP D9220 MIKE MCKEON SEDATION/ 0 , VIVIEN PUGA W W ANESTHESI A-1ST 30 MINUTES ORTHOPANT 73486 MIKE MCKEON OGRAM 0 , VIVIEN PUGA IAADI 27702 [facility] INFLUENZA 9 [facility] B VIRUS INC INC IAADI 18765 [facility] INFFLUENZ 9 [facility] A A VIRUS INC INC URNLS DIP 64513 [facility] STICK/TAB INC INC LET REAGENT AUTO MICROSCOP Y RADEX 62826 [facility] RIBS UNI 9 [facility] W/POSTERO INC INC ANT CH MINIMUM 3 VIEWS Encounters Encounter Start End Date Code Location Performer Type Date [facility] - 7 7 [facility] OUTPATIEN INC T OFFICE 89739 [facility] 7 7 [facility] T VISIT INC 10 MINUTES OFFICE 81735 GERARDO SAMUEL OUTPATIEN 6 6 MD VIVIAN, T VISIT PSC 15 MINUTES HOSPITAL [facility] - 6 6 [facility] OUTPATIEN INC T OFFICE 60346 GERARDO MARSH OUTPATIEN 6 6 MD VIVIAN, T VISIT PSC 10 MINUTES OFFICE 25247 [facility] FRYMAN OUTPATIEN 6 6 PHYSICIAN EUG T VISIT S GROUP 25 MINUTES HOSPITAL L[facility]O - 6 6 [facility] OUTPATIEN INC T OFFICE 20537 [facility] HOLLIS OUTPATIEN 6 6 PHYSICIAN RODGER T VISIT S GROUP 15 MINUTES HOSPITAL LITO - 6 6 [facility] OUTPATIEN INC HOSPITAL LITO - 6 6 [facility] OUTPATIEN INC T OFFICE 91892 [facility] LARKIN OUTPATIEN 6 6 PHYSICIAN LALITO T NEW S GROUP MINUTES OFFICE 98411 GERARDO SAMUEL ALEIDA OUTPATIEN 6 6 MD VIVIAN, T NEW 30 PSC MINUTES OFFICE 15552 [facility] [place] OUTPATIEN 6 6 PHYSICIAN RODGER T VISIT S GROUP 15 MINUTES OFFICE 94378 [facility] [place] OUTPATIEN 6 6 PHYSICIAN RODGER T VISIT S GROUP 15 MINUTES HOSPITAL LITO - 6 6 [facility] OUTPATIEN INC [facility] LITO - 6 6 [facility] OUTPATIEN INC T OFFICE 36662 [facility] [place] OUTPATIEN 6 6 PHYSICIAN RODGER T VISIT S GROUP 25 MINUTES OFFICE 21055 [facility] [place] OUTPATIEN 6 6 PHYSICIAN RODGER T VISIT S GROUP 10 MINUTES HOSPITAL LIT[facility] - 6 6 [facility] OUTPATIEN INC T HOSPITAL L[facility] - 6 6 [facility] OUTPATIEN INC T OFFICE 70164 [facility] [place] OUTPATIEN 6 6 PHYSICIAN RODGER T VISIT S GROUP 15 MINUTES OFFICE 24904 [facility] [place] OUTPATIEN 6 6 PHYSICIAN RODGER T VISIT S GROUP 10 MINUTES OFFICE 57525 [facility] ROGERS OUTPATIEN 6 6 T VISIT ORTHOPAED 15 ICS PSC MINUTES OFFICE 31445 [facility] TRA CONSULTAT 6 6 [place] ION ORTHOPAED NEW/ESTAB ICS PLC PATIENT 40 MIN OFFICE 20812 [facility] SCHULSTAD OUTPATIEN 6 6 PHYSICIAN CAM T VISIT S GROUP 10 MINUTES OFFICE 05332 [facility] MAHARAJ TER OUTPATIEN 6 6 PHYSICIAN T VISIT S GROUP 15 MINUTES HOSPITAL L[facility]O - 6 6 [facility] OUTPATIEN INC T OFFICE 17926 [facility] SCHULSTAD OUTPATIEN 6 6 PHYSICIAN CAM T NEW 30 S GROUP MINUTES EMERGENCY 78915 [facility] 6 6 [facility] DEPARTMEN INC T VISIT MODERATE SEVERITY HOSPITAL [facility] - 6 6 [facility] OUTPATIEN INC T HOSPITAL LIOT - 5 5 [facility] OUTPATIEN INC T OFFICE 69194 [facility] SCHERER OUTPATIEN 5 5 [facility] T VISIT HOSPITAL 15 MINUTES EMERGENCY 30209 LIA YOON 5 5 PHYSICIAN HARP [facility]IGH/URGE NT SEVERITY HOSPITAL [facility] - 5 5 [facility] OUTPATIEN INC T OFFICE 96659 KEVIN BROWN OUTPATIEN 5 5 YULISA YULISA T VISIT 15 MINUTES OFFICE 48484 GLYNN MAKI OUTPATIEN 5 5 ALEIDA ALEIDA T NEW 20 MINUTES EMERGENCY [address] [facility] 4 4 KAMALA DEPARTMEN EMERGENCY T VISIT PHYS MODERATE SEVERITY OFFICE 38318 KEVIN BROWN OUTPATIEN 4 4 YULISA YULISA T VISIT 40 MINUTES OFFICE 19228 LIANA ARAUJOS OUTPATIEN 2 2 DON DON T VISIT 15 MINUTES OFFICE 00401 GAINES GAINES OUTPATIEN 1 1 DON DON T VISIT 15 MINUTES OFFICE 64999 FAMILY MULBERRY OUTPATIEN 1 1 CARE LIBORIO T VISIT ASSOCIATE 15 S MINUTES OFFICE 62715 LIANA ARAUJOS OUTPATIEN 0 0 DON DON T NEW 20 MINUTES EMERGENCY 13858 [facility] 0 0 [facility] DEPARTMEN INC T VISIT MODERATE SEVERITY HOSPITAL [facility] - 0 0 [facility] OUTPATIEN INC T EMERGENCY 55673 ANGELES FRANKLIN, 0 0 EMERGENCY KRYSTAL DEPARTMEN SERVICES O T VISIT HIGH/URGE ASSOCIATE NT S SEVERITY OFFICE 67188 MIKE MCKEON OUTPATIEN 0 0 , VIVIEN PUGA T NEW 10 W W MINUTES EMERGENCY 16189 ANGELES FRANKLIN, 0 0 EMERGENCY KRYSTAL DEPARTMEN SERVICES O T VISIT HIGH/URGE ASSOCIATE NT S SEVERITY EMERGENCY 57234 [facility] 0 0 [facility] DEPARTMEN INC T VISIT LIMITED/M INOR PROB HOSPITAL L[facility] - 0 0 [facility] OUTPATIEN INC T EMERGENCY 85075 [facility] 9 9 [facility] DEPARTMEN INC T VISIT LOW/MODER SEVERITY EMERGENCY 62564 ANGELES [place], 9 9 EMERGENCY KRYSTAL DEPARTMEN SERVICES O T VISIT MODERATE ASSOCIATE SEVERITY S HOSPITAL [facility] - 9 9 [facility] OUTPATIEN INC T EMERGENCY 77339 [facility] 9 9 [facility] DEPARTMEN INC T VISIT LOW/MODER SEVERITY EMERGENCY 95997 ANGELES FRANKLIN, 9 9 EMERGENCY [facility] DEPARTMEN SERVICES O T VISIT HIGH/URGE ASSOCIATE NT S SEVERITY HOSPITAL L[facility] - 9 9 [facility] OUTPATI[facility] INC T HOSPITAL LITO - 9 9 [facility] OUTPATIEN INC T EMERGENCY 99005 [facility] 9 9 [facility] DEPARTMEN INC T VISIT LOW/MODER SEVERITY EMERGENCY 14182 ANGELES [place]ANKLIN, 9 9 EMERGENCY KRYSTAL DEPARTMEN SERVICES O T VISIT MODERATE ASSOCIATE SEVERITY S
--- OUTSIDE RECORDS SUMMARY | 2017-05-03 16:11 | External Medical Summary Rpt ---
Author Author , BEATRIS SPEAR Address Unknown Phone [email or web address] ([employer]) Care Team Providers Care Dock Grader Name Role Phone GERARDO PARK MD, PSC, [...] MAKI ALEIDA MAKI ALEIDA, Unavailable Unavailable MAKI ALIEDA FRYMAN EUG, FRYMAN Unavailable Unavailable EUG HOLLIS RODGER, HOLLIS Unavailable Unavailable RODGER [facility] Unavailable Unavailable INC, [facility] Unavailable [facility], [facility] VIVIEN MCKEON, Unavailable Unavailable VIVIEN MCKEON [facility], Unavailable Unavailable [facility] ROGERS, ROGERS Unavailable Unavailable ROGERS TRA, [facility] Unavailable Unavailable [facility] Unavailable Unavailable [facility], [facility] LARKIN LALITO, LARKIN Unavailable Unavailable LALITO GEO WONG P, Unavailable Unavailable GEO WONGI, Unavailable Unavailable [facility], Unavailable [facility]available [facility], [facility] Unavailable Unavailable [id number] [address] [id number], [facility] [address] # [phone] SCHULSTAD CAM, Unavailable Unavailable SCHULSTAD CAM SOKAN, KRYSTAL O, Unavailable Unavailable SOKAN, KRYSTAL O [facility] GAINES DON, Unavailable Unavailable GAINES DON GAINES DON, Unavailable Unavailable GAINES DON [facility] Unavailable Unavailable #591, [facility] #591 [facility] # Unavailable Unavailable [id number], [facility] # [id number] [facility] Unavailable Unavailable [facility] Unavailable Unavailable [facility] ROSMERY HOLT, ROSMERY HOLT Unavailable Unavailable Purpose Continuity of Care Document - 02-15-2009 through 2016 Problems Code Diagnosis DOS Provider Status Z539 PROCEDURE & 11-15-2016 [facility] NOT CARRIED INC OUT UNS REASON M5116 INTERVERTEB 09-20-2016 GERARDO PARK RAL DISC , PSC D/O W/RADICULOP ATHY LUMB RGN J029 ACUTE 08-16-2016 [facility] PHARYNGITIS PHYSICIANS GROUP UNSPECIFIED R112 NAUSEA WITH 08-16-2016 [facility] VOMITING PHYSICIANS UNSPECIFIED GROUP R197 DIARRHEA 08-16-2016 [facility] UNSPECIFIED PHYSICIANS GROUP M549 DORSALGIA 07-19-2016 [facility] UNSPECIFIED PHYSICIANS GROUP M5136 OT 07-13-2016 FILEMON ALEJANDRO MD, PSC RAL DISC DEGEN LUMBAR REGION J309 ALLERGIC 06-28-2016 [facility] RHINITIS PHYSICIANS UNSPECIFIED GROUP J381 POLYP OF 06-28-2016 [facility] VOCAL CORD PHYSICIANS AND LARYNX GROUP M5126 OT 06-28-2016 FILEMON ALEJANDRO MD, PSC RAL DISC DISPLACEMEN T LUMBAR RGN M5416 RADICULOPAT 06-28-2016 GERARDO PARK, HY LUMBAR , PSC REGION Z720 TOBACCO USE 06-28-2016 [facility] M545 LOW BACK 06-11-2016 [facility] PAIN PHYSICIANS GROUP R499 UNSPECIFIED 06-11-2016 [facility] VOICE PHYSICIANS RESONANCE GROUP DISORDER J40 BRONCHITIS 03-24-2016 [facility] NOT PHYSICIANS SPECIFIED GROUP ACUTE OR CHRONIC J329 CHRONIC 02-23-2016 [facility] SINUSITIS PHYSICIANS UNSPECIFIED GROUP M5441 LUMBAGO 12-18-2015 [facility] WITH PHYSICIANS SCIATICA GROUP RIGHT SIDE R1011 RIGHT UPPER 12-18-2015 [facility] QUADRANT PHYSICIANS PAIN GROUP D63463 CELLULITIS 10-22-2015 [facility] LEFT PHYSICIANS, FINGER PLLC M5430 SCIATICA 10-01-2015 [facility] M533 SACROCOCCYG 09-21-2015 [facility] MEDICAL DISORDERS IMAGING ASS NEC J32848 PERSONAL 09-21-2015 [place] [facility] NICOTINE INC DEPENDENCE J0190 ACUTE 09-16-2015 ARNOLD YULISA SINUSITIS UNSPECIFIED M542 CERVICALGIA 09-16-2015 KEVIN MÁRQUEZ V0481 NEED 07-16-2015 [facility] DE[facility] VACCINATION JEZ &INOCULATIO N FLU 7242 LUMBAGO 06-07-2015 MAKI ALEIDA 7393 NONALLOPATH 06-07-2015 MAKI IC LESION ALEIDA OF LUMBAR REGION NEC 7395 NONALLOPATH 06-07-2015 MAKI IC LESION ALEIDA OF PELVIC REGION NEC 462 ACUTE 07-01-2014 [facility]Y PH[facility] 4739 UNSPECIFIED 07-01-2014 [facility] SINUS[facility]IS N EMERGENCY PHYS V700 ROUTINE 03-29-2014 KEVIN MÁRQUEZ GENERAL MEDICAL EXAM@HEALTH CARE FACL 94065 PAIN IN 01-12-2012 [facility] JOINT, DON SHOULDER REGION 8409 SPRAIN&STRA 01-12-2012 [facility] IN UNSPEC DON SITE SHOULDER&UP PER ARM 6929 CONTACT 10-01-2011 [facility] DERMATITIS& DON OTHER ECZEMA DUE UNSPEC CAUSE 7821 RASH AND 04-17-2011 [facility] OTHER [facility]OCIATES NONSPECIFIC SKIN ERUPTION 4660 ACUTE 06-15-2010 [facility] BRONCHITIS DON 15928 SHORTNESS 06-15-2010 [facility] OF BREATH DON 92863 OTHER CHEST 06-15-2010 [facility] PAIN DON 45631 NAUSEA WITH 06-15-2010 [facility] VOMITING DON 7804 DIZZINESS 04-01-2010 [facility] GIDDINESS INC 9895 TOXIC 04-01-2010 [facility] EFFECT OF EMERGENCY VENOM SERVICES ASSOCIATES 5206 DISTURBANCE 03-12-2010 Rebekah MCKEON IN TOOTH [facility] [place] ERUPTION 05248 DENTAL 03-05-2010 MIKE CARIES [facility] [place] EXTENDING INTO PULP 5220 PULPITIS 03-05-2010 VIVIEN MCKEON 5253 RETAINED 03-05-2010 MIKE DENTAL ROOT [facility] [place] 8920 OPEN WOUND 01-26-2010 [facility] FT NO TOE EMERGENCY ALONE SERVICES WITHOUT ASSOCIATES MENTION COMP V065 NEED 01-26-2010 [facility] PROPHYLACTI [facility] C INC VACCINATION W/TETANUS-D [facility] 4871 INFLUENZA 07-22-2009 [facility] WITH OTHER EMERGENCY RESPIRATORY SERVICES ASSOCIATES MANIFESTATI ONS 4881 INFLUENZA 07-22-2009 [facility] D/T ID 2008 [facility] H1N1 INC INFLUENZA VIRUS 6820 CELLULITIS 05-27-2009 [facility] AND ABSCESS EMERGENCY OF FACE SERVICES ASSOCIATES 9221 CONTUSION 02-15-2009 [facility] MEDICAL WALL IMAGING ASSOCIATES E8150 OTH MOTR 02-15-2009 [place] [facility] W/OBJ IMAGING HIWAY-INJUR ASSOCIATES ING REVENUE FIELD 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 25 WA [...] 34 7- 7- 00 49 ER ve UT 59 20 20 AI SO ED 31 10 10 D N NI 5 PH RO SO AR BE LO MA RT NE CY W 4 03 MG 93 8 DO # SE 03 PK 93 UT 00 05 05 12 2 RI 83 [...] 00 10 5 WA 70 SO Ac CA 00 -0 -2 .0 L- 40 KA ti FL 40 6- 2- 00 MA 13 N ve U 80 20 20 RT 0 BA 75 08 09 09 BA 5 PH TU MG AR ND MA E CA CY O PS UL #5 E 91 UT 68 10 10 00 12 2 WA [...] 00 10 5 WA 70 SO Ac UT 09 -0 -2 .0 L- 18 KA [...] Procedure DOS Code Location Performer Comment NJX 15329 GERARDO PARK DX/THER 6 MD VIVIAN, SBST PSC EPIDURAL/ SUBARACH LUMBAR/SA CRAL BLOOD 61005 [facility] COUNT [facility] COMPLETE INC INC AUTO&AUTO DIFRNTL WBC COMPREHEN 48619 [facility] SIVE 6 [facility] METABOLIC INC INC PANEL DRUG TST G0477 [facility] PRESUMP;C 6 [facility] PBL BEING INC INC READ DC OPT OBV ONLY NJX 81383 GERARDO SAMUEL ALEIDA DX/THER 6 MD VIVIAN, [...] INC READ DC OPT OBV ONLY MRI 04844 [facility] TRA SPINAL 6 CANAL ORTHOPAED LUMBAR ICS PSC W/O CONTRAST MATERIAL RADEX 30236 [facility] SPINE 6 [place] LUMBOSACR ORTHOPAED AL 2/3 ICS PLC VIEWS THERAPEUT 67812 [facility] [place] IC 6 PHYSICIAN PROPHYLAC S GROUP TIC/DX INJECTION SUBQ/IM INJECTION J1040 [facility] [place] 6 PHYSICIAN METHYLPRE S GROUP DNIS[place] 80 [place] [address] [facility] ABDOMINAL 6 [facility] REAL INC INC TIME W/IMAGE LIMITED INCISION 33397 [facility] & 6 [facility] DRAINAGE INC INC ABSCESS SIMPLE/SI NGLE PHYSICAL 85921 [facility] M[facility] THERAPY 5 [facility] EVALUATIO INC INC N INJECTION J1885 [facility] 5 [facility] [place] INE PER 15 MG THERAPEUT 51458 [facility] SCHERER IC 5 [facility] TIC/DX INJECTION SUBQ/IM CT LUMBAR 27259 [facility] D[facility] SPINE 5 MEDICAL LUPILLO W/O IMAGING CONTRAST ASS MATERIAL THERAPEUT 34234 [facility] IC 5 [facility] PROPHYLAC INC INC TIC/DX INJECTION SUBQ/IM IIV4 VACC 82315 [facility] VIRUS 0.5 HLTH DEPT HLTH DEPT ML DOS JEZ JEZ FOR IM USE CHIROPRAC 48777 MAKI MAKI TIC 5 ALEIDA ALEIDA MANIPULAT PRANAV TX SPINAL 1-2 REGIONS RADEX 85019 MAKI MAKI SPINE 5 ALEIDA ALEIDA LUMBOSACR AL 2/3 VIEWS CHIROPRAC 88735 MAKI MAKI TIC 5 ALEIDA ALEIDA MANIPULAT PRANAV TX SPINAL 1-2 REGIONS RADEX 98889 GAINES GAINES SHOULDER 2 DON DON COMPLETE MINIMUM 2 VIEWS THER 18065 MIKE MCKEON PROPH/DX 0 , VIVIEN PUGA NJX IV W W PUSH SINGLE/1S T SBST/DRUG DEEP D9220 MIKE MCKEON SEDATION/ 0 , VIVIEN PUGA W W ANESTHESI A-1ST 30 MINUTES ORTHOPANT 47885 MIKE MCKEON OGRAM 0 , VIVIEN PUGA IAADI 95153 [facility] INFLUENZA 9 [facility] B VIRUS INC INC IAADI 55358 [facility] INFFLUENZ 9 [facility] A A VIRUS INC INC URNLS DIP 70405 [facility] 9 [facility] STICK/TAB INC INC LET REAGENT AUTO MICROSCOP Y RADEX 45421 [facility] RIBS UNI 9 [facility] W/POSTERO INC INC ANT CH MINIMUM 3 VIEWS Encounters Encounter Start End Date Code Location Performer Type Date [facility] - 7 7 [facility] OUTPATIEN INC T OFFICE 81025 [facility] 7 7 [facility] T VISIT INC 10 MINUTES OFFICE 32743 GERARDO SAMUEL OUTPATIEN 6 6 MD VIVIAN, T VISIT PSC 15 MINUTES HOSPITAL L[facility] - 6 6 [facility] OUTPATIEN INC T OFFICE 56348 GERARDO MARSH OUTPATIEN 6 6 MD VIVIAN, T VISIT PSC 10 MINUTES OFFICE 86494 [facility] FRYMAN OUTPATIEN 6 6 PHYSICIAN EUG T VISIT S GROUP 25 MINUTES HOSPITAL LITO - 6 6 [facility] OUTPATIEN INC T OFFICE 08367 [facility] HOLLIS OUTPATIEN 6 6 PHYSICIAN RODGER T VISIT S GROUP 15 MINUTES HOSPITAL LITO - 6 6 [facility] OUTPATIEN INC HOSPITAL LITO - 6 6 [facility] OUTPATIEN INC T OFFICE 43835 [facility] LARKIN OUTPATIEN 6 6 PHYSICIAN LALITO T NEW S GROUP MINUTES OFFICE 88878 GERARDO SAMUEL ALEIDA OUTPATIEN 6 6 MD VIVIAN, T NEW 30 PSC MINUTES OFFICE 75230 [facility] HOLLIS OUTPATIEN 6 6 PHYSICIAN RODGER T VISIT S GROUP 15 MINUTES OFFICE 00859 [facility] HOLLIS OUTPATIEN 6 6 PHYSICIAN RODGER T VISIT S GROUP 15 MINUTES HOSPITAL ILTO - 6 6 [facility] L[facility] - 6 6 [facility] OUTPATIEN INC T OFFICE 54942 [facility] HO[facility]IS OUTPATIEN 6 6 PHYSICIAN RODGER T VISIT S GROUP 25 MINUTES OFFICE 44763 [facility] HOLLIS OUTPATIEN 6 6 PHYSICIAN RODGER T VISIT S GROUP 10 MINUTES HOSPITAL LITO - 6 6 [facility] OUTPATIEN INC T HOSPITAL LITO - 6 6 [facility] OUTPATIEN INC T OFFICE 28224 [facility] HOLLIS OUTPATIEN 6 6 PHYSICIAN RODGER T VISIT S GROUP 15 MINUTES OFFICE 12901 [facility] HOLLIS OUTPATIEN 6 6 PHYSICIAN RODGER T VISIT S GROUP 10 MINUTES OFFICE 49389 [facility] 6 6 T VISIT ORTHOPAED 15 ICS PSC MINUTES OFFICE 89876 [facility] TRA CONSULTAT 6 6 [place] ION ORTHOPAED NEW/ESTAB ICS PLC PATIENT 40 MIN OFFICE 35929 [facility] SCHULSTAD OUTPATIEN 6 6 PHYSICIAN CAM T VISIT S GROUP 10 MINUTES OFFICE 98827 [facility] MAHARAJ TER OUTPATIEN 6 6 PHYSICIAN T VISIT S GROUP 15 MINUTES HOSPITAL LITO - 6 6 [facility] OUTPATIEN INC T OFFICE 97156 [facility] SCHULSTAD OUTPATIEN 6 6 PHYSICIAN CAM T NEW 30 S GROUP MINUTES EMERGENCY 61135 [facility] 6 6 [facility] DEPARTMEN INC T VISIT MODERATE SEVERITY HOSPITAL L[facility]O - 6 6 [facility] OUTPATIEN INC T HOSPITAL LITO - 5 5 [facility] OUTPATIEN INC T OFFICE 49898 [facility] SCHERER OUTPATIEN 5 5 [facility] T VISIT HOSPITAL 15 MINUTES EMERGENCY 96040 LIA YOON 5 5 PHYSICIAN HRAP [facility]IGH/URGE NT SEVERITY [facility]OSPITAL LITO - 5 5 [facility] OUTPATIEN INC T OFFICE 35220 KEVIN BROWN OUTPATIEN 5 5 YULISA YULISA T VISIT 15 MINUTES OFFICE 62259 GLYNN MAKI OUTPATIEN 5 5 ALEIDA ALEIDA T NEW 20 MINUTES EMERGENCY 70232 [facility] 4 4 KAMALA DEPARTMEN EMERGENCY T VISIT PHYS MODERATE SEVERITY OFFICE 09528 KEVIN BROWN OUTPATIEN 4 4 YULISA YULISA T VISIT 40 MINUTES OFFICE 57431 [facility] ARAUJOS OUTPATIEN 2 2 DON DON T VISIT 15 MINUTES OFFICE 27952 [facility] GAINES OUTPATIEN 1 1 DON DON T VISIT 15 MINUTES OFFICE 92634 FAMILY MULBERRY OUTPATIEN 1 1 CARE LIBORIO T VISIT ASSOCIATE 15 S MINUTES OFFICE 28029 LIANA ARAUJOS OUTPATIEN 0 0 DON DON T NEW 20 MINUTES EMERGENCY 02799 [facility] 0 0 [facility] DEPARTMEN INC T VISIT MODERATE SEVERITY HOSPITAL LITO - 0 0 [facility] OUTPATIEN INC T EMERGENCY 93586 [facility]ES FRANKLIN, 0 0 EMERGENCY KRYSTAL DEPARTMEN SERVICES O T VISIT HIGH/URGE ASSOCIATE NT S SEVERITY OFFICE 29157 MIKE MCKEON OUTPATIEN 0 0 , VIVIEN PUGA T NEW 10 W W MINUTES EMERGENCY 83694 ANGELES FRANKLIN, 0 0 EMERGENCY KRYSTAL DEPARTMEN SERVICES O T VISIT HIGH/URGE ASSOCIATE NT S SEVERITY EMERGENCY 07698 [facility] 0 0 [facility] DEPARTMEN INC T VISIT LIMITED/M INOR PROB HOSPITAL LITO - 0 0 [facility] OUTPATIEN INC T EMERGENCY 89960 [facility] 9 9 [facility] DEPARTMEN INC T VISIT LOW/MODER SEVERITY EMERGENCY 34762 ANGELES FRANKLIN, 9 9 EMERGENCY KRYST[facility] DEPARTMEN SERVICES O T VISIT MODERATE ASSOCIATE SEVERITY S HOSPITAL LITO - 9 9 [facility] OUTPATIEN INC T EMERGENCY 34716 [facility] 9 9 [facility] DEPARTMEN INC T VISIT LOW/MODER SEVERITY EMERGENCY 39317 ANGELES FRANKLIN, 9 9 EMERGENCY [facility] DEPARTMEN SERVICES O T VISIT HIGH/URGE ASSOCIATE NT S SEVERITY HOSPITAL LITO - 9 9 [facility] OUTPATIEN INC T HOSPITAL LITO - 9 9 [facility] OUTPATIEN INC T EMERGENCY 58271 [facility] 9 9 [facility] DEPARTMEN INC T VISIT LOW/MODER SEVERITY EMERGENCY 54930 ANGELES FRANKLIN, 9 9 EMERGENCY [facility]RYSTAL DEPARTMEN SERVICES O T VISIT MODERATE ASSOCIATE SEVERITY S
--- OUTSIDE RECORDS SUMMARY | 2017-05-03 16:12 | External Medical Summary Rpt ---
Author Author BEATRIS Stinson, BEATRIS Stinson Organization [employer] Address Unknown Phone Unavailable
--- OUTSIDE RECORDS SUMMARY | 2017-05-03 16:12 | External Medical Summary Rpt ---
Demographics Preferred Language Zimbabwean Marital Status Unknown Hinduism Affiliation Unknown Race Unknown Ethnic Group Unknown Author Author FELI Address Unknown Phone Immunization No patient found.
--- OUTSIDE RECORDS SUMMARY | 2017-05-03 16:12 | External Medical Summary Rpt ---
Demographics Preferred Language Namibian Marital Status Unknown Anglican Affiliation Unknown Race Unknown Ethnic Group Unknown Author Author FELI Address Unknown Phone Immunization No patient found.
[2017-05-03 17:01] VITALS: BP 109/66
[2017-06-01] MEDS ORDERED: BACTRIM DS 8001 TA1 PO (11:51)
[2017-06-01] MEDS ORDERED: CLINDAMYCIN HC150 MG PO (11:51)
== END 2017-05-03 17:02 | disposition home or self-care (01) ==
LOC: UTC 15:49
DX: L02.414 Cutaneous abscess of left upper limb (principal)

== ENCOUNTER 2017-05-06 10:50 | Emergency (ER) | payer MEDICAID ==
--- OUTSIDE RECORDS SUMMARY | 2017-05-06 10:58 | External Medical Summary Rpt ---
Author Author , BEATRIS VERASBARBARA Address Unknown Phone .[employer] Care Team Providers Care Hog Sawyer Name Role Phone GERARDO PARK MD, PSC, Unavailable Unavailable GERARDO PARK MD, PSC ARNOLD YULISA, ARNOLD Unavailable Unavailable YULISA ARNOLD YULISA, ARNOLD Unavailable Unavailable YULISA MAHARAJ TER, MAHARAJ TER Unavailable Unavailable STEVEN ALL, STEVEN ALL Unavailable Unavailable BUX, BUX Unavailable Unavailable BUX [...] EUG HOLLIS RODGER, HOLLIS Unavailable Unavailable [facility]ODGER [facility] Un[facility] Un[facility], [facility] Unavailable Unavailable [facility] VIVIEN MCKEON, Unavailable Unavailable VIVIEN MCKEON [facility], Unavailable Unavailable [facility] ROGERS, ROGERS Unavailable Unavailable ROGERS TRA, ROGERS TRA Unavailable Unavailable JACK QUEZADA MD, Unavailable Unavailable JACK QUEZADA MD [facility] Un[facility] LARKIN LALITO, LARKIN Unavailable Unavailable LALITO GEO WONG P, Unavailable Unavailable GEO WONGBERRY LIBORIO, Unavailable Unavailable [facility], [facility]available [facility], [facility] Unavailable Unavailable [id number] [address] [id number], [facility] [id number] # [phone] SCHULSTAD CAM, Unavailable Unavailable SCHULSTAD CAM SOKAN, KRYSTAL O, Unavailable Unavailable SOKAN, KRYSTAL O [facility] LIANA MARIE Unavailable Unavailable GAINES DON GAINES DON, Unavailable Unavailable GAINES DON [facility] Unavailable Unavailable #591, [facility]591 [facility] # Unavailable Unavailable [id number], [facility] # [id number] [facility] Unavailable Unavailable DEPT [facility] DEPT [facility] Unavailable [facility]available DEPT [facility] DEPT [facility], [facility] Unavailable Unavailable Purpose Continuity of Care Document - 02-15-2009 through 2016 Problems Code Diagnosis DOS Provider Status Z539 PROCEDURE & 11-15-2016 [facility] NOT CARRIED INC OUT UNS REASON M5116 INTERVERTEB 09-20-2016 JULIANA ALEJANDRO MD, PSC D/O W/RADICULOP ATHY LUMB RGN J029 ACUTE 08-16-2016 [facility]IS [facility] UNSPECIFIED R112 NAUSEA WITH 08-16-2016 [facility] VOMITING PHYSICIANS UNSPECIFIED GROUP R197 DIARRHEA 08-16-2016 [facility] UNSPECIFIED [facility]YSICIANS GROUP M549 DORSALGIA 07-19-2016 [facility] UNSPECIFIED [facility]YSICIANS GROUP M5136 OT 07-13-2016 FILEMON ALEJANDRO MD, PSC RAL DISC DEGEN LUMBAR REGION J309 ALLERGIC 06-28-2016 [facility] RHINITIS PHYSICIANS UNSPECIFIED GROUP J381 POLYP OF 06-28-2016 [facility] VOCAL CORD PHYSICIANS AND LARYNX GROUP M5126 OT 06-28-2016 FILEMON ALEJANDRO MD, PSC RAL DISC DISPLACEMEN T LUMBAR RGN M5416 RADICULOPAT 06-28-2016 GERARDO PARK HY LUMBAR , PSC REGION Z720 TOBACCO USE 06-28-2016 [facility] M545 LOW BACK 06-11-2016 [facility] PAIN PHYSICIANS GROUP R499 UNSPECIFIED 06-11-2016 [facility] VOICE PHYSICIANS RESONANCE GROUP DISORDER J40 BRONCHITIS 03-24-2016 [facility] NOT PHYSICIANS SPECIFIED GROUP ACUTE OR CHRONIC J329 CHRONIC 02-23-2016 [facility] SINUSITIS PHYSICIANS UNSPECIFIED GROUP M5441 LUMBAGO 12-18-2015 [facility] WITH PHYSICIANS SCIATICA GROUP RIGHT SIDE R1011 RIGHT UPPER 12-18-2015 [facility] QUADRANT PHYSICIANS PAIN GROUP C67605 CELLULITIS 10-22-2015 [facility] OF LEFT PHYSICIANS, FINGER PLL M5430 SCIATICA 10-01-2015 [facility] UNSPECIFIED [facility] M533 SACROCOCCYG 09-21-2015 [facility] E59296 PERSONAL 09-21-2015 [facility] NICOTINE INC DEPENDENCE J0190 ACUTE 09-16-2015 KEVIN MÁRQUEZ SINUSITIS UNSPECIFIED M542 CERVICALGIA 09-16-2015 KEVIN MÁRQUEZ V0481 NEED 07-16-2015 [facility] DEPT VACCINATION JEZ &INOCULATIO N FLU [...] CARE FACL 850.0 850.0 02-21-2013 L[facility] CONCUSSION [facility] W/O [facility] E825.8 E825.8 MV 02-21-2013 Lito N-TRAFF [facility] E849.8 E849.8 02-21-2013 L[facility] ACCIDENT IN [facility] 71495 PAIN IN 01-12-2012 GAINES JOINT, DON SHOULDER REGION 8409 SPRAIN&STRA 01-12-2012 GAINES IN UNSPEC DON SITE SHOULDER&UP PER ARM 6929 CONTACT 10-01-2011 [facility] DERMATITIS& DON OTHER ECZEMA DUE UNSPEC CAUSE 7821 RASH AND 04-17-2011 [facility] NONSPECIFIC SKIN ERUPTION 4660 ACUTE 06-15-2010 GA[facility] BRONCHITIS DON 69110 SHORTNESS 06-15-2010 GAINES OF BREATH DON 22370 OTHER CHEST 06-15-2010 GAINES PAIN DON 09238 NAUSEA WITH 06-15-2010 [facility] VOMITING DON 7804 DIZZINESS 04-01-2010 [facility] AND [facility] GIDDINESS INC 9895 TOXIC 04-01-2010 [facility] EFFECT OF EMERGENCY VENOM SERVICES ASSOCIATES 5206 DISTURBANCE 03-12-2010 Rebekah MCKEON IN TOOTH VIVIEN [place] ERUPTION 63036 DENTAL 03-05-2010 TD MCKEON EXTENDING INTO PULP 5220 PULPITIS 03-05-2010 VIVIEN MCKEON 5253 RETAINED 03-05-2010 MCKEON, DENTAL ROOT VIVIEN W 8920 OPEN WOUND 01-26-2010 [facility] FT NO TOE EMERGENCY ALONE SERVICES WITHOUT ASSOCIATES MENTION COMP V065 NEED 01-26-2010 [facility] PROPHYLACTI [facility] C INC VACCINATION W/TETANUS-D [facility] 4871 INFLUENZA 07-22-2009 [facility] WITH OTHER EMERGENCY RESPIRATORY SERVICES ASSOCIATES MANIFESTATI ONS 4881 INFLUENZA 07-22-2009 [facility] D/T ID 2009 [facility] H1N1 INC INFLUENZA VIRUS 6820 CELLULITIS 05-27-2009 [facility] AND ABSCESS EMERGENCY OF FACE SERVICES ASSOC[facility]ATES 9221 CONTUSION 02-15-2009 [place] OF CHEST MEDICAL WALL IMAGING ASSOCIATES E8150 OTH MOTR 02-15-2009 [place] VEH HERI MEDICAL W/OBJ IMAGING HIWAY-INJUR ASSOCIATES ING LINOTYPIST E8230 OTH MOTR 02-15-2009 [facility] VEH NONTRFF EMERGENCY HERI SERVICES W/STATION ASSOCIATES OBJ-LINOTYPIST E8490 PLACE OF 02-15-2009 [place] OCCURRENCE, MEDICAL HOME IMAGING ASSOCIATES Allergies, Adverse [...] 40 ZA 81 17 17 42 PH VA 0 42 AR IN MA E CY [...] MG CA PS UL E ME 29 02 30 30 00 CL Ac LO [...] 40 ZA 81 17 17 42 PH VA 0 42 AR IN MA E CY 10 MG TA BL ET HY 00 01 02 [address] 60 -0 -0 .0 00 IN ti OC 33 3- 3- 00 00 IC ve OD 89 20 20 41 ON 03 17 17 79 PH -A 2 98 AR CE MA TA CY RI NO PH EN 5- 32 5 GA [...] 2 86 AR CE MA TA CY RI NO PH EN 5- 32 5 KE [...] MA R CY # 10 05 91 VA 00 08 08 5 6. 25 WA [...] 5- 8 32 # 5 03 93 IB 53 05 05 20 [...] 34 7- 7- 00 49 ER ve VA 59 20 20 AI SO ED 31 10 10 D N NI 5 PH RO SO AR BE LO MA RT NE CY W 4 03 MG 93 8 DO # SE 03 PK 93 VA 00 05 05 12 2 RI 83 HE Ac OM 78 -2 -2 .0 TE 55 ND ti ET 11 7- 7- 00 50 ER ve MURILLO 83 20 20 AI SO ZI 00 10 10 D N NE 1 PH RO AR BE 25 MA RT CY W MG 03 TA 93 BL 8 ET # 03 93 AM 65 05 05 15 [...] UL 8 E # 03 93 00 05 05 15 [...] 00 10 5 WA 70 SO Ac RI 00 -0 -2 .0 L- 40 KA ti FL 40 6- 2- 00 MA 13 N ve U 80 20 20 RT 0 BA 75 08 09 09 BA 5 PH TU MG AR ND MA E CA CY O PS UL #5 E 91 VA 68 10 10 00 12 2 WA [...] 10 5 WA 70 SO Ac VA 09 -0 -2 .0 L- 18 KA [...] Procedure DOS Code [place] [address] GERARDO BUX DX/THER 6 MD VIVIAN, SBST PSC EPIDURAL/ SUBARACH LUMBAR/SA CRAL COMPREHEN 04535 [facility] SIVE [facility] METABOLIC INC INC PANEL BLOOD 85500 [facility] COUNT 6 [facility] COMPLETE INC INC AUTO&AUTO DIFRNTL WBC DRUG TST G0477 [facility] PRESUMP;C 6 [facility] PBL BEING INC INC READ [place] OPT OBV ONLY NJX 52714 [facility] DX/THER 6 [facility] MEM [...] INC READ DC OPT OBV ONLY MRI 05576 [facility] ROGERS TRA SPINAL 6 CANAL ORTHOPAED LUMBAR ICS PSC W/O CONTRAST MATERIAL RADEX 66202 [facility] ROGERS TRA SPINE 6 [place] LUMBOSACR ORTHOPAED AL 2/3 ICS PLC VIEWS THERAPEUT 87172 [facility] MAHARAJ TER IC 6 PHYSICIAN PROPHYLAC S GROUP TIC/DX INJECTION SUBQ/IM INJECTION J1040 [facility] MAHARAJ TER 6 PHYSICIAN METHYLPRE S GROUP DNISOLONE ACETATE 80 MG [address] [place] STEVEN ALL ABDOMINAL 6 MEDICAL REAL IMAGING TIME ASS W/IMAGE LIMITED INCISION 33005 [facility] & 6 [facility] DRAINAGE INC INC ABSCESS SIMPLE/SI NGLE PHYSICAL 69276 [facility] THERAPY 5 [facility] EVALUATIO INC INC N INJECTION J1885 [facility] SCHERER 5 [facility] KETOROLAC [facility] [place] INE PER 15 MG THERAPEUT 91197 [facility] SCHERER IC 5 [facility] T[facility]DX INJE[facility] SUBQ/IM THERAPEUT 71350 [facility] IC 5 [facility] PROPHYLAC INC INC TIC/DX INJECTION SUBQ/IM CT LUMBAR 52408 [place] DICK SPINE 5 MEDICAL LUPILLO W/O IMAGING CONTRAST ASS MATERIAL IIV4 VACC 67246 [facility] SPLIT 5 [facility] VIRUS 0.5 HLTH DEPT HLTH DEPT ML DOS JEZ JEZ FOR IM USE CHIROPRAC 34119 MAKI MAKI TIC 5 ALEIDA ALEIDA MANIPULAT PRANAV TX SPINAL 1-2 REGIONS CHIROPRAC 17752 MAKI MAKI TIC 5 ALEIDA ALEIDA MANIPULAT PRANAV TX SPINAL 1-2 REGIONS RADEX 60551 MAKI MAKI SPINE 5 ALEIDA ALEIDA LUMBOSACR AL 2/3 VIEWS RADEX 18738 GAINES GAINES SHOULDER 2 DON DON COMPLETE MINIMUM 2 VIEWS THER 02991 MIKE MCKEON PROPH/DX 0 , VIVIEN PUGA NJX IV W W PUSH SINGLE/1S T SBST/DRUG DEEP D9220 MIKE MCKEON SEDATION/ 0 , VIVIEN PUGA GENERAL W W ANESTHESI A-1ST 30 MINUTES ORTHOPANT 24135 MIKE MCKEON OGRAM 0 , VIVIEN PUGA W IAADI 24572 [facility] INFLUENZA 9 [facility] B VIRUS INC INC IAADI 28618 LITOCHANDA M[facility] INFFLUENZ 9 [facility] A A VIRUS INC INC RADEX 48445 [place] MARVIN, RIBS UNI 9 MEDICAL GEO P W/POSTERO IMAGING ANT CH ASSOCIATE MINIMUM 3 S VIEWS URNLS DIP 42850 [facility] STICK/TAB INC INC LET REAGENT AUTO MICROSCOP Y Encounters Encounter Start End Date Code Location Performer Type Date [facility] - [facility] OUTPATIEN INC T OFFICE 86336 [facility] 7 [facility] T VISIT INC 10 MINUTES OFFICE 28024 GERARDO ANDERSONPATINYA 6 6 MD VIVIAN, T VISIT PSC 15 MINUTES [facility]OSPITAL [facility] OUTPATIEN INC T [facility] - 6 6 [facility] OUTPATIEN INC T OFFICE 20399 [facility] OUTPATIEN 6 6 PHYSICIAN EUG T VISIT S GROUP 25 MINUTES OFFICE 54533 GERARDORAE MATAMOROSJ OUTPATIEN 6 6 MD VIVIAN, T VISIT PSC 10 MINUTES HOSPITAL [facility] - [facility] 6 [facility] OUTPATIEN INC T OFFICE 56351 [facility] HOLLIS OUTPATIEN 6 6 PHYSICIAN RODGER T VISIT S GROUP 15 MINUTES HOSPITAL [facility] - 6 6 [facility] OUTPATIEN INC T OFFICE 78502 [facility] LARKIN OUTPATIEN 6 6 PHYSICIAN LALITO T NEW 20 S GROUP MINUTES OFFICE 59210 GERARDO LIZZIE ALEIDA OUTPATIEN 6 6 MD VIVIAN, T NEW 30 PSC MINUTES OFFICE 80283 [facility] OUTPATIEN 6 6 PHYSICIAN RODGER T VISIT S GROUP 15 MINUTES OFFICE 44532 [facility] OUTPATIEN 6 6 PHYSICIAN RODGER T VISIT S GROUP 15 MINUTES HOSPITAL [facility] 6 [facility] OUTPATIEN INC T [facility] 6 6 [facility] OUTPATIEN INC T OFFICE 05069 [facility] OUTPATIEN 6 6 PHYSICIAN RODGER T VISIT S GROUP 25 MINUTES HOSPITAL [facility] - 6 6 [facility] OUTPATIEN INC T OFFICE 47164 [facility] OUTPATIEN 6 6 PHYSICIAN RODGER T VISIT S GROUP 10 MINUTES HOSPITAL [facility] - 6 6 [facility] OUTPATIEN INC T OFFICE 54140 [facility] OUTPATIEN 6 6 PHYSICIAN RODGER T VISIT S GROUP 15 MINUTES OFFICE 65382 [facility] OUTPATIEN 6 6 PHYSICIAN RODGER T VISIT S GROUP 10 MINUTES OFFICE 76503 [facility] ROGERS OUTPATIEN 6 6 T VISIT ORTHOPAED 15 ICS PSC MINUTES OFFICE 46075 [facility]OGERS TRA CONSULTAT 6 6 [place] ION ORTHOPAED NEW/ESTAB ICS PLC PATIENT 40 MIN OFFICE 04683 [facility] SCHULSTAD OUTPATIEN 6 6 PHYSICIAN CAM T VISIT S GROUP 10 MINUTES OFFICE 53635 [facility] MAHARAJ TER OUTPATIEN 6 6 PHYSICIAN T VISIT S GROUP 15 MINUTES HOSPITAL [facility] - 6 6 [facility] OUTPATIEN INC T OFFICE 52937 [facility] OUTPATIEN 6 6 PHYSICIAN CAM T NEW 30 S GROUP MINUTES HOSPITAL [facility] - 6 6 [facility] OUTPATIEN INC T EMERGENCY 43066 [facility] 6 6 [facility] DEPARTMEN INC T VISIT MODERATE SEVERITY [facility]OSPITAL [facility] - 5 5 [facility] OUTPATIEN INC T OFFICE 20940 [facility] SCHERER OUTPATIEN 5 5 [facility] T VISIT HOSPITAL 15 MINUTES HOSPITAL [facility] - 5 5 [facility] OUTPATIEN INC T EMERGENCY 56409 LIA YOON 5 5 PHYSICIAN [facility]PART[facility] T VISIT HIGH/URGE NT SEVERITY OFFICE 63643 KEVIN GALLARDO 5 5 YULISA YULISA T VISIT 15 MINUTES OFFICE 02636 GLYNN MAKI OUTPATIEN 5 5 ALEIDA ALEIDA T NEW 20 MINUTES EMERGENCY 87452 [facility] 4 4 [place] DEPARTMEN EMERGENCY T VISIT PHYS MODERATE SEVERITY OFFICE 58666 KEVIN GALLARDO 4 4 YULISA YULISA T VISIT 40 MINUTES Emergency MACRINA QUEZADA (ER) 3 13:42 3 14:28 [facility] A OFFICE 53285 LIANA ANDERSONPATINYA 2 2 DON DON T VISIT 15 MINUTES OFFICE 21273 LIANA GAINES OUTPATIEN 1 1 DON DON T VISIT 15 MINUTES OFFICE 04237 [facility] OUTPATIEN 1 1 CARE LIBORIO T VISIT ASSOCIATE 15 S MINUTES OFFICE 20202 LIANA GAINES OUTPATIEN 0 0 DON DON T NEW 20 MINUTES HOSPITAL [facility] 0 0 [facility] OUTPATIEN INC T EMERGENCY 43075 ANG[facility]ES [place]ANK[place], 0 0 EMERGENCY [facility] DEPARTMEN SERVICES O T VISIT HIGH/URGE ASSOCIATE NT S SEVERITY EMERGENCY 96080 [facility] 0 0 [facility] DEPARTMEN INC T VISIT MODERATE SEVERITY OFFICE 71704 MCKEON MCKEON OUTPATIEN 0 0 , VIVIEN PUGA NEW 10 W W MINUTES [facility]IT[facility] - 0 0 [facility] OUTPATIEN INC T EMERGENCY 68093 [facility] 0 0 [facility] DEPARTMEN INC T VISIT LIMITED/M INOR PROB EMERGENCY 35387 ANGELES [place]ANKLIN, 0 0 EMERGENCY [facility]PART[facility] SERVICES O T VISIT HIGH/URGE ASSOCIATE NT S SEVERITY EMERGENCY 43653 ANGELES [place], 9 9 EMERGENCY [facility] DEPARTMEN SERVICES O T VISIT MODERATE ASSOCIATE SEVERITY S HOSPITAL LTIO - 9 9 [facility] OUTPATIEN INC T EMERGENCY 95131 [facility] 9 9 [facility] DEPARTMEN INC T VISIT LOW/MODER SEVERITY EMERGENCY 22104 [facility] 9 9 [facility] DEPARTMEN INC T VISIT LOW/MODER SEVERITY EMERGENCY 58744 ANGELES [place], 9 9 EMERGENCY [facility] DEPARTMEN SERVICES O T VISIT HIGH/URGE ASSOCIATE NT S SEVERITY [facility]OSPITAL [facility] - 9 9 [facility] OUTPATIEN INC T EMERGENCY 84734 [facility] 9 9 [facility] DEPARTMEN INC T VISIT LOW/MODER SEVERITY EMERGENCY 93231 ANGELES [place], 9 9 EMERGENCY [facility] DEPARTMEN SERVICES O T VISIT MODERATE ASSOCIATE SEVERITY [facility] - 9 9 [facility]
--- OUTSIDE RECORDS SUMMARY | 2017-05-06 10:58 | External Medical Summary Rpt ---
Author Author , BEATRIS VERASBARBARA Address Unknown Phone [email or web address] Care Team Providers Care Landfill Attendant Name Role Phone GERARDO PARK MD, PSC, [...] [facility] Unavailable Unavailable [facility], VIVIEN MCKEON, Unavailable Unavailable VIVIEN MCKEON [facility], Unavailable Unavailable [facility] ROGERS, ROGERS Unavailable Unavailable [facility] TRA, [facility] Unavailable Unavailable JACK QUEZADA MD, Unavailable Unavailable JACK QUEZADA MD [facility] Unavailable Unavailable [facility] LARKIN LALITO, LARKIN Unavailable Unavailable LALITO GEO WONG P, Unavailable Unavailable GEO WONGBERRY LIBORIO, Unavailable Unavailable [facility], Unavailable [facility]available [facility], [facility] Unavailable Unavailable [id number] [address] [id number], [facility] [id number] [address] [id number] SCHULSTAD CAM, Unavailable Unavailable SCHULSTAD CAM SOKAN, KRYSTAL O, Unavailable Unavailable SOKAN, KRYSTAL O [facility] LIANA MARIE Unavailable Unavailable GAINES DON GAINES DON, Unavailable Unavailable GAINES DON [facility] Unavailable Unavailable #591, [facility]591 [facility] # Unavailable Unavailable [id number], [facility] # [id number] [facility] Unavailable Unavailable DEPT [facility], [facility] DEPT [facility] Unavailable [facility]available DEPT [facility] DEPT [facility], [facility] Unavailable Unavailable Purpose Continuity of Care Document - 02-15-2009 through 2016 Problems Code Diagnosis DOS Provider Status Z539 PROCEDURE & 11-15-2016 [facility] NOT CARRIED INC OUT UNS REASON M5116 INTERVERTEB 09-20-2016 JULIANA ALEJANDRO MD, PSC D/O W/RADICULOP ATHY LUMB RGN J029 ACUTE 08-16-2016 [facility] PHARYNGITIS [facility] GROUP UNSPECIFIED R112 NAUSEA WITH 08-16-2016 [facility] VOMITING PHYSICIANS UNSPECIFIED GROUP R197 DIARRHEA 08-16-2016 [facility] UNSPECIFIED PHYSICIANS GROUP M549 DORSALGIA 07-19-2016 [facility] UNSPECIFIED PHYSICIANS GROUP M5136 OT 07-13-2016 FILEMON ALEJANDRO MD, PSC RAL DISC DEGEN LUMBAR REGION J309 ALLERGIC 06-28-2016 [facility] RHINITIS PHYSICIANS UNSPECIFIED GROUP J381 POLYP OF 06-28-2016 [facility] VOCAL CORD PHYSICIANS AND LARYNX GROUP M5126 OT 06-28-2016 FILEMON ALEJANDRO MD, PSC RAL DISC DISPLACEMEN T LUMBAR RGN M5416 RADICULOPAT 06-28-2016 GERARDO PARK HY LUMBAR , PSC REGION Z720 TOBACCO USE 06-28-2016 [facility] M545 LOW BACK 06-11-2016 [facility] PAIN PHYSICIANS GROUP R499 UNSPECIFIED 06-11-2016 [facility] VOICE PHYSICIANS RESONANCE GROUP DISORDER J40 BRONCHITIS 03-24-2016 [facility] NOT PHYSICIANS SPECIFIED GROUP ACUTE OR CHRONIC J329 CHRONIC 02-23-2016 [facility] SINUSITIS PHYSICIANS UNSPECIFIED GROUP M5441 LUMBAGO 12-18-2015 [facility] WITH PHYSICIANS SCIATICA GROUP RIGHT SIDE R1011 RIGHT UPPER 12-18-2015 [facility] QUADRANT PHYSICIANS PAIN GROUP C57099 CELLULITIS 10-22-2015 [facility] OF LEFT PHYSICIANS, FINGER PLL M5430 SCIATICA 10-01-2015 [facility] UNSPECIFIED [facility] M533 SACROCOCCYG 09-21-2015 [facility] IMAGING [facility] C30458 PERSONAL 09-21-2015 [facility] HISTORY OF [facility] NICOTINE INC DEPENDENCE J0190 ACUTE 09-16-2015 KEVIN MÁRQUEZ SINUSITIS UNSPECIFIED M542 CERVICALGIA 09-16-2015 KEVIN MÁRQUEZ V0481 NEED 07-16-2015 [facility] DEPT VACCINATION JEZ &INOCULATIO N FLU [...] CARE FACL 850.0 850.0 02-21-2013 [facility] CONCUSSION [facility] W/O [facility] E825.8 E825.8 MV 02-21-2013 Lito N-TRAFF [facility] E849.8 E849.8 02-21-[address] [facility] [address] PAIN IN 01-12-2012 GAIN[facility] JOINT, DON SHOULDER REGION 8409 SPRAIN&STRA 01-12-2012 GA[facility] IN UNSPEC DON SITE SHOULDER&UP PER ARM 6929 CONTACT 10-01-2011 [facility] DERMATITIS& DON OTHER ECZEMA DUE UNSPEC CAUSE 7821 RASH AND 04-17-2011 [facility] NONSPECIFIC SKIN ERUPTION 4660 ACUTE 06-15-2010 [facility] BRONCHITIS DON 16684 SHORTNESS 06-15-2010 [facility] OF BREATH DON 40914 OTHER CHEST 06-15-2010 GA[facility] PAIN DON 39239 NAUSEA WITH 06-15-2010 [facility] VOMITING DON 7804 DIZZINESS 04-01-2010 [facility] AND [facility] GIDDINESS INC 9895 TOXIC 04-01-2010 [facility] EFFECT OF EMERGENCY VENOM SERVICES ASSOCIATES 5206 DISTURBANCE 03-12-2010 Rebekah MCKEON IN TOOTH VIVIEN [place] ERUPTION 82553 DENTAL 03-05-2010 TD MCKEON EXTENDING INTO PULP 5220 PULPITIS 03-05-2010 VIVIEN MCKEON 5253 RETAINED 03-05-2010 MCKEON, DENTAL ROOT VIVIEN W 8920 OPEN WOUND 01-26-2010 [facility] FT NO TOE EMERGENCY ALONE SERVICES WITHOUT ASSOCIATES MENTION COMP V065 NEED 01-26-2010 [facility] PROPHYLACTI [facility] C INC VACCINATION W/TETANUS-D [facility] 4871 INFLUENZA 07-22-2009 [facility] WITH OTHER EMERGENCY RESPIRATORY SERVICES ASSOCIATES MANIFESTATI ONS 4881 INFLUENZA 07-22-2009 [facility] D/T ID 2009 [facility] H1N1 INC INFLUENZA VIRUS 6820 CELLULITIS 05-27-2009 [facility] AND ABSCESS EMERGENCY OF FACE SERVICES [facility] 9221 CONTUSION 02-15-2009 [place] OF CHEST MEDICAL WALL IMAGING ASSOCIATES E8150 OTH MOTR 02-15-2009 [place] VEH HERI MEDICAL W/OBJ IMAGING HIWAY-INJUR ASSOCIATES ING SOLAR 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 25 WA [...] 34 7- 7- 00 49 ER ve WI 59 20 20 AI SO ED 31 10 10 D N NI 5 PH RO SO AR BE LO MA RT NE CY W 4 03 MG 93 8 DO # SE 03 PK 93 WI 00 05 05 12 2 RI 83 [...] 10 5 WA 70 SO Ac IL 00 -0 -2 .0 L- 40 KA ti FL 40 6- 2- 00 MA 13 N ve U 80 20 20 RT 0 BA 75 08 09 09 BA 5 PH TU MG AR ND MA E CA CY O PS UL #5 E 91 WI 68 10 10 00 12 2 WA [...] 00 10 5 WA 70 SO Ac WI 09 -0 -2 .0 L- 18 KA [...] Procedure DOS Code Location Performer Comment NJX 98691 GERARDO BUX DX/THER 6 MD VIVIAN, SBST PSC EPIDURAL/ SUBARACH LUMBAR/SA CRAL COMPREHEN 47295 [facility] SIVE 6 [facility] METABOLIC INC INC PANEL BLOOD 95198 [facility] COUNT 6 [facility] COMPLETE INC INC AUTO&AUTO DIFRNTL WBC DRUG TST G0477 [facility] PRESUMP;C 6 [facility] PBL BEING INC INC READ DC OPT OBV ONLY NJX 33413 [facility] DX/THER 6 [facility] MEM [...] INC READ DC OPT OBV ONLY MRI 15673 [facility] TRA SPINAL 6 CANAL ORTHOPAED LUMBAR ICS PSC W/O CONTRAST MATERIAL RADEX 65850 [facility] TRA SPINE 6 [place] LUMBOSACR ORTHOPAED AL 2/3 ICS PLC VIEWS THERAPEUT 65821 [facility] MAHARAJ TER IC 6 PHYSICIAN PROPHYLAC S GROUP TIC/DX INJECTION SUBQ/IM INJECTION J1040 [facility] MAHARAJ TER 6 PHYSICIAN METHYLPRE S GROUP DNISOLONE ACETATE 80 MG [address] [place] STEVEN ALL ABDOMINAL 6 MEDICAL REAL IMAGING TIME ASS W/IMAGE LIMITED INCISION 24891 [facility]SE & 6 [facility] DRAINAGE INC INC ABSCESS SIMPLE/SI NGLE PHYSICAL 18853 [facility] THERAPY 5 [facility] EVALUATIO INC INC N INJECTION J1885 [facility] SCHERER 5 [facility] KETOROLAC [facility] INE PER 15 MG THERAPEUT 69554 [facility] SCHERER IC 5 [facility] TIC/DX INJECTION SUBQ/IM THERAPEUT 12917 [facility]SE IC 5 [facility] PROPHYLAC INC INC TIC/DX INJECTION SUBQ/IM CT LUMBAR 28152 [place] DICK SPINE 5 MEDICAL LUPILLO W/O IMAGING CONTRAST ASS MATERIAL IIV4 VACC 09868 [facility] S[facility]IT [facility] VIRUS 0.5 HLTH DEPT HLTH DEPT ML DOS JEZ JEZ FOR IM USE CHIROPRAC 19893 MAKI MAKI TIC 5 ALEIDA ALEIDA MANIPULAT PRANAV TX SPINAL 1-2 REGIONS CHIROPRAC 07928 MAKI MAKI TIC 5 ALEIDA ALEIDA MANIPULAT PRANAV TX SPINAL 1-2 REGIONS RADEX 33441 MAKI MAKI SPINE 5 ALEIDA ALEIDA LUMBOSACR AL 2/3 VIEWS RADEX 44436 GAINES GAINES SHOULDER 2 DON DON COMPLETE MINIMUM 2 VIEWS THER 60561 MIKE MCKEON PROPH/DX 0 , VIVIEN PUGA NJX IV W W PUSH SINGLE/1S T SBST/DRUG DEEP D9220 MIKE MCKEON SEDATION/ 0 , VIVIEN PUGA GENERAL W W ANESTHESI A-1ST 30 MINUTES ORTHOPANT 54651 MIKE MCKEON OGRAM 0 , VIVIEN PUGA W IAADI 13685 [facility] INFLUENZA 9 [facility] B VIRUS INC INC IAADI 09020 LITO[facility]DA M[facility]SE INFFLUENZ 9 [facility] A VIRUS INC INC RADEX 50592 [place] MARVIN, RIBS UNI 9 MEDICAL GEO P W/POSTERO IMAGING ANT CH ASSOCIATE MINIMUM 3 S VIEWS URNLS DIP 47107 [facility]SE 9 [facility] STICK/TAB INC INC LET REAGENT AUTO MICROSCOP Y Encounters Encounter Start End Date Code Location Performer Type Date [facility] OUTPATIEN INC T OFFICE 37547 [facility]IEN 7 7 [facility] T VISIT INC 10 MINUTES OFFICE 67330 GERARDO ANDERSONPATINYA 6 6 MD VIVIAN, T VISIT PSC 15 MINUTES [facility]OSPITAL [facility] - [facility] 6 [facility] OUTPATIEN INC T [facility] - 6 6 [facility] OUTPATIEN INC T OFFICE 63448 [facility] FRYMAN OUTPATIEN 6 6 PHYSICIAN EUG T VISIT S GROUP 25 MINUTES OFFICE 98932 GERARDORAE MATAMOROSJ OUTPATIEN 6 6 MD VIVIAN, T VISIT PSC 10 MINUTES HOSPITAL [facility] - 6 6 [facility] OUTPATIEN INC T OFFICE 02176 [facility] HOLLIS OUTPATIEN 6 6 PHYSICIAN RODGER T VISIT S GROUP 15 MINUTES HOSPITAL [facility] - 6 6 [facility] OUTPATIEN INC T OFFICE 28109 [facility] LARKIN OUTPATIEN 6 6 PHYSICIAN LALITO T NEW 20 S GROUP MINUTES OFFICE 15311 GERARDO LIZZIE ALEIDA OUTPATIEN 6 6 MD VIVIAN, T NEW 30 PSC MINUTES OFFICE 48913 [facility] [place] OUTPATIEN 6 6 PHYSICIAN RODGER T VISIT S GROUP 15 MINUTES OFFICE 47301 [facility] [place] OUTPATIEN 6 6 PHYSICIAN RODGER T VISIT S GROUP 15 MINUTES HOSPITAL [facility] - 6 6 [facility] OUTPATIEN INC T HOSP[facility] - 6 6 [facility] OUTPATIEN INC T OFFICE 74913 [facility] OUTPATIEN 6 6 PHYSICIAN RODGER T VISIT S GROUP 25 MINUTES HOSPITAL [facility] - 6 6 [facility] OUTPATIEN INC T OFFICE 52943 [facility] OUTPATIEN 6 6 PHYSICIAN RODGER T VISIT S GROUP 10 MINUTES [facility]OSPITAL [facility] - 6 6 [facility] OUTPATIEN INC T OFFICE 67108 [facility] [place] OUTPATIEN 6 6 PHYSICIAN RODGER T VISIT S GROUP 15 MINUTES OFFICE 56707 [facility] [place] OUTPATIEN 6 6 PHYSICIAN RODGER T VISIT S GROUP 10 MINUTES OFFICE 72561 [facility] ROGERS OUTPATIEN 6 6 T VISIT ORTHOPAED 15 ICS PSC MINUTES OFFICE 71388 [facility] TRA CONSULTAT 6 6 [place] ION ORTHOPAED NEW/ESTAB ICS PLC PATIENT 40 MIN OFFICE 27111 [facility] SCHULSTAD OUTPATIEN 6 6 PHYSICIAN CAM T VISIT S GROUP 10 MINUTES OFFICE 99221 [facility] MAHARAJ TER OUTPATIEN 6 6 PHYSICIAN T VISIT S GROUP 15 MINUTES HOSPITAL [facility] - 6 6 [facility] OUTPATIEN INC T OFFICE 00928 [facility] SCHULSTAD OUTPATIEN 6 6 PHYSICIAN CAM T NEW 30 S GROUP MINUTES [facility]OSPITAL [facility] - 6 6 [facility] OUTPATIEN INC T EMERGENCY 07198 [facility] 6 6 [facility] DEPARTMEN INC T VISIT MODERATE SEVERITY [facility]OSPITAL [facility] - 5 5 [facility] OUTPATIEN INC T OFFICE 04479 [facility] SCHERER OUTPATIEN 5 5 [facility] T VISIT HOSPITAL 15 MINUTES HOSPITAL [facility] - 5 5 [facility] OUTPATIEN INC T EMERGENCY 77238 LIA YOON 5 5 PHYSICIAN [facility] DEPARTMEN S[facility] PLL[facility] T VISIT HIGH/URGE NT SEVERITY OFFICE 41930 KEVIN GALLARDO 5 5 YULISA YULISA T VISIT 15 MINUTES OFFICE 66674 GLYNN MAKI OUTPATIEN 5 5 ALEIDA ALEIDA T NEW 20 MINUTES EMERGENCY 19169 [facility] 4 4 [facility] DEPARTMEN EMERGENCY T VISIT PHYS MODERATE SEVERITY OFFICE 65707 KEVIN GALLARDO 4 4 YULISA YULISA T VISIT 40 MINUTES Emergency MACRINA QUEZADA (ER) 3 13:42 3 14:28 [facility] A OFFICE 27237 LIANA ANDERSONPATINYA 2 2 DON DON T VISIT 15 MINUTES OFFICE 46605 LIANA GAINES OUTPATIEN 1 1 DON DON T VISIT 15 MINUTES OFFICE 44987 [facility] OUTPATIEN 1 1 [facility] T VISIT ASSOCIATE 15 S MINUTES OFFICE 50890 LIANA GAINES OUTPATIEN 0 0 DON DON T NEW 20 MINUTES HOSPITAL [facility] - 0 0 [facility] OUTPATIEN INC T EMERGENCY 92714 [facility] [place], 0 0 EMERGENCY [facility]PART[facility] SERVICES O T VISIT HIGH/URGE ASSOCIATE NT S SEVERITY EMERGENCY 21667 [facility] 0 0 [facility] DEPARTMEN INC T VISIT MODERATE SEVERITY OFFICE 99335 [facility] MCKEON OUTPATIEN 0 0 , VIVIEN PUGA NEW 10 W W MINUTES [facility] - 0 0 [facility] OUTPATIEN INC T EMERGENCY 32535 [facility] 0 0 [facility] DEPARTMEN INC T VISIT LIMITED/M INOR PROB EMERGENCY 56679 ANGELES [place], 0 0 EMERGENCY [facility] O T VISIT HIGH/URGE ASSOCIATE NT S SEVERITY EMERGENCY 51853 ANGELES [place], 9 9 EMERGENCY [facility] O T VISIT MODERATE ASSOCIATE SEVERITY S HOSPITAL [facility] - 9 9 [facility] OUTPATIEN INC T EMERGENCY 83742 [facility] 9 9 [facility] DEPARTMEN INC T VISIT LOW/MODER SEVERITY EMERGENCY 47777 [facility] 9 9 [facility] DEPARTMEN INC T VISIT LOW/MODER SEVERITY EMERGENCY 26574 ANG[facility]ES [place], 9 9 EMERGENCY [facility] O T VISIT HIGH/URGE ASSOCIATE NT S SEVERITY [facility]OSPITAL [facility] - 9 9 [facility] OUTPATIEN INC T EMERGENCY 55559 [facility] 9 9 [facility] DEPARTMEN INC T VISIT LOW/MODER SEVERITY EMERGENCY 02764 ANG[facility]ES [place], 9 9 EMERGENCY [facility] DEPARTMEN SERVICES O T VISIT MODERATE ASSOCIATE SEVERITY [facility] LITO - 9 9 [facility]
--- OUTSIDE RECORDS SUMMARY | 2017-05-06 11:01 | External Medical Summary Rpt ---
Author Author , BEATRIS SPEAR Address Unknown Phone [email or web address] [email or web address] Care Computer Help Desk Representative Name Role Phone GERARDO PARK MD, PSC, Unavailable Unavailable GERARDO PARK MD, PSC ARNOLD YULISA, ARNOLD Unavailable Unavailable YULISA ARNOLD YULISA, ARNOLD Unavailable Unavailable YULISA MAHARAJ TER, MAHARAJ TER Unavailable Unavailable BUX, BUX Unavailable Unavailable BUX ANJ, BUX ANJ Unavailable Unavailable DCIK LUPILLO, Unavailable Unavailable DICK LUPILLO DUFF, DUFF Unavailable Unavailable DUFF ALEIDA, DUFF ALEIDA [facility]available Unavailable [facility] KARRIE CIFUENTES Unavailable Unavailable HARP MAKI ALEIDA, Unavailable Unavailable MAKI ALEIDA MAKI ALEDIA, Unavailable Unavailable MAKI ALEIDA FRYMAN EUG, FRYMAN Unavailable Unavailable EUG HOLLIS RODGER, HOLLIS Unavailable Unavailable RODGER [facility] Unavailable Unavailable INC, [facility] Unavailable [facility], [facility] VIVIEN MCKEON, Unavailable Unavailable VIVIEN MCKEON [facility], Unavailable Unavailable [facility] ROGERS, ROGERS Unavailable Unavailable ROGERS TRA, [facility] Unavailable Unavailable [facility] Unavailable Unavailable [facility], [facility] LARKIN LALITO, LARKIN Unavailable Unavailable LALITO GEO WONG P, Unavailable Unavailable GEO WONGI, Unavailable Unavailable [facility], Un[facility]available [facility], [facility] Unavailable Unavailable [id number] [address] [id number], [facility] [id number] # [id number] SCHULSTAD CAM, Unavailable Unavailable SCHULSTAD CAM SOKAN, KRYSTAL O, Unavailable Unavailable SOKAN, KRYSTAL O [facility] GAINES DON, Unavailable Unavailable GAINES DON GAINES DON, Unavailable Unavailable GAINES DON [facility] Unavailable Unavailable #591, [facility]591 [facility] # Unavailable Unavailable [id number], [facility] # [id number] [facility] Unavailable Unavailable [facility] Unavailable [facility] ROSMERY HOLT, ROSMERY HOLT Unavailable Unavailable Purpose Continuity of Care Document - 02-15-2009 through 2016 Problems Code Diagnosis DOS Provider Status Z539 PROCEDURE & 11-15-2016 [facility] NOT CARRIED INC OUT UNS REASON M5116 INTERVERTEB 09-20-2016 GERARDO PARK RAL DISC , PSC D/O W/RADICULOP ATHY LUMB RGN J029 ACUTE 08-16-2016 [facility] PHARYNGITIS PHYSICIANS GROUP UNSPECIFIED R112 NAUSEA WITH 08-16-2016 [facility] VOMITING PHYSICIANS UNSPECIFIED GROUP R197 DIARRHEA 08-16-2016 [facility] UNSPECIFIED PHYSICIANS GROUP M549 DORSALGIA 07-19-2016 [facility] UNSPECIFIED PHYSICIANS GROUP M5136 OT 07-13-2016 FILEMON ALEJANDRO MD, PSC RAL DISC DEGEN LUMBAR REGION J309 ALLERGIC 06-28-2016 [facility] RHINITIS PHYSICIANS UNSPECIFIED GROUP J381 POLYP OF 06-28-2016 [facility] VOCAL CORD PHYSICIANS AND LARYNX GROUP M5126 OT 06-28-2016 FILEMON ALEJANDRO MD, PSC RAL DISC DISPLACEMEN T LUMBAR RGN M5416 RADICULOPAT 06-28-2016 GERARDO PARK, HY LUMBAR , PSC REGION Z720 TOBACCO USE 06-28-2016 [facility] M545 LOW BACK 06-11-2016 [facility] PAIN PHYSICIANS GROUP R499 UNSPECIFIED 06-11-2016 [facility] VOICE PHYSICIANS RESONANCE GROUP DISORDER J40 BRONCHITIS 03-24-2016 [facility] NOT PHYSICIANS SPECIFIED GROUP ACUTE OR CHRONIC J329 CHRONIC 02-23-2016 [facility] SINUSITIS PHYSICIANS UNSPECIFIED GROUP M5441 LUMBAGO 12-18-2015 [facility] WITH PHYSICIANS SCIATICA GROUP RIGHT SIDE R1011 RIGHT UPPER 12-18-2015 [facility] QUADRANT PHYSICIANS PAIN GROUP Z60418 CELLULITIS 10-22-2015 [facility] OF LEFT PHYSICIANS, FINGER PLLC M5430 SCIATICA 10-01-[facility] M533 SACROCOCCYG 09-21-2015 [facility] MEDICAL DISORDERS IMAGING ASS NEC F22340 PERSONAL 09-21-2015 [facility] NICOTINE INC DEPENDENCE J0190 ACUTE 09-16-2015 ARNOLD YULISA SINUSITIS UNSPECIFIED M542 CERVICALGIA 09-16-2015 KEVIN MÁRQUEZ V0481 NEED 07-16-2015 [facility] VACCINATION JEZ &INOCULATIO N FLU 7242 LUMBAGO 06-07-2015 MAKI ALEIDA 7393 NONALLOPATH 06-07-2015 MAKI IC LESION ALEIDA OF LUMBAR REGION NEC 7395 NONALLOPATH 06-07-2015 MAKI IC LESION ALEIDA OF PELVIC REGION NEC 462 ACUTE 07-01-2014 [facility] 4739 UNSPECIFIED 07-01-2014 [facility] SIN[facility]IS N EMERGENCY PHYS V700 ROUTINE 03-29-2014 KEVIN MÁRQUEZ GENERAL MEDICAL EXAM@HEALTH CARE FACL 38354 PAIN IN 01-12-2012 GAINES JOINT, DON SHOULDER REGION 8409 SPRAIN&STRA 01-12-2012 [facility] IN UNSPEC DON SITE SHOULDER&UP PER ARM 6929 CONTACT 10-01-2011 [facility] DERMATITIS& DON OTHER ECZEMA DUE UNSPEC CAUSE 7821 RASH AND 04-17-2011 [facility] OTHER ASSOCIATES NONSPECIFIC SKIN ERUPTION 4660 ACUTE 06-15-2010 [facility] BRONCHITIS DON 87696 SHORTNESS 06-15-2010 [facility] OF BREATH DON 79056 OTHER CHEST 06-15-2010 [facility] PAIN DON 93139 NAUSEA WITH 06-15-2010 [facility] VOMITING DON 7804 DIZZINESS 04-01-2010 [facility] GIDDINESS INC 9895 TOXIC 04-01-2010 [facility] EFFECT OF EMERGENCY VENOM SERVICES ASSOCIATES 5206 DISTURBANCE 03-12-2010 Rebekah MCKEON IN TOOTH [facility] [place] ERUPTION 51119 DENTAL 03-05-2010 MIKE CARIES [facility] [place] EXTENDING INTO PULP 5220 PULPITIS 03-05-2010 VIVIEN MCKEON 5253 RETAINED 03-05-2010 MIKE DENTAL ROOT [facility] [place] 8920 OPEN WOUND 01-26-2010 [facility] FT NO TOE EMERGENCY ALONE SERVICES WITHOUT ASSOCIATES MENTION COMP V065 NEED 01-26-2010 [facility] PROPHYLACTI [facility] C INC VACCINATION W/TETANUS-D [facility] 4871 INFLUENZA 07-22-2009 [facility] WITH OTHER EMERGENCY RESPIRATORY SERVICES ASSOCIATES MANIFESTATI ONS 4881 INFLUENZA 07-22-2009 [facility] D/T ID 2008 [facility] H1N1 INC INFLUENZA VIRUS 6820 CELLULITIS 05-27-2009 [facility] AND ABSCESS EMERGENCY OF FACE SERVICES [facility] 9221 CONTUSION 02-15-2009 [facility] MEDICAL WALL IMAGING ASSOCIATES E8150 OTH MOTR 02-15-2009 [facility] HERI MEDICAL W/OBJ IMAGING HIWAY-INJUR ASSOCIATES ING CONTROL AND RECOVERY COMBAT RESCUE E8230 OTH MOTR 02-15-2009 [facility] VEH NONTRFF EMERGENCY HERI SERVICES W/STATION ASSOCIATES OBJ-CONTROL AND RECOVERY COMBAT RESCUE E8490 PLACE OF 02-15-2009 [facility] OCCURRENCE, [facility] Medications Na [...] 40 ZA 81 17 17 42 PH OR 0 42 AR IN MA E CY [...] 40 ZA 81 17 17 42 PH OR 0 42 AR IN MA E CY [...] MA R CY # 10 05 91 OR 00 08 08 5 6. 25 WA [...] 34 7- 7- 00 49 ER ve OR 59 20 20 AI SO ED 31 10 10 D N NI 5 PH RO SO AR BE LO MA RT NE CY W 4 03 MG 93 8 DO # SE 03 PK 93 OR 00 05 05 12 2 RI 83 [...] CY O PS UL #5 E 91 OR 68 10 10 00 12 2 WA [...] 00 10 5 WA 70 SO Ac OR 09 -0 -2 .0 L- 18 KA [...] Procedure DOS [place] [address] GERARDO PARK DX/THER 6 MD VIVIAN, SBST PSC EPIDURAL/ SUBARACH LUMBAR/SA CRAL BLOOD 65696 [facility] COUNT 6 [facility] COMPLETE INC INC AUTO&AUTO DIFRNTL WBC COMPREHEN 38199 [facility] SIVE 6 [facility] METABOLIC INC INC PANEL DRUG TST G0477 [facility] PRESUMP;C 6 [facility] PBL BEING INC INC READ DC OPT OBV ONLY NJX 40726 GERARDO SAMUEL ALEIDA DX/THER 6 MD VIVIAN, [...] INC READ DC OPT OBV ONLY MRI 10268 [facility] TRA SPINAL 6 CANAL ORTHOPAED LUMBAR ICS PSC W/O CONTRAST MATERIAL RADEX 47955 [facility] TRA SPINE 6 [place] LUMBOSACR ORTHOPAED AL 2/3 ICS PLC VIEWS INJECTION J1040 [facility] MAHARAJ TER 6 PHYSICIAN METHYLPRE S GROUP DNISOLONE ACETATE 80 MG THERAPEUT 86760 [facility] NICKO ROCK IC 6 PHYSICIAN PROPHYLAC S GROUP TIC/DX INJECTION SUBQ/[place] [address] [facility] ABDOMINAL 6 [facility] REAL INC INC TIME W/IMAGE LIMITED INCISION 52405 [facility] & 6 [facility] DRAINAGE INC INC ABSCESS SIMPLE/SI NGLE PHYSICAL 29665 L[facility] THERAPY 5 [facility] EVALUATIO INC INC N THERAPEUT 27638 [facility] LINDSEYCRISTALSATURNINO IC 5 [facility] TIC/DX INJECTION SUBQ/IM INJECTION J1885 [facility] SONIAAN 5 [facility] INE PER 15 MG THERAPEUT 50532 [facility] MORSE IC 5 [facility] PROPHYLAC INC INC TIC/DX INJECTION SUBQ/IM CT LUMBAR 60514 [facility] DICK SPINE 5 MEDICAL LUPILLO W/O IMAGING CONTRAST ASS MATERIAL IIV4 VACC 97144 [facility] VIRUS 0.5 HLTH DEPT HLTH DEPT ML DOS JEZ JEZ FOR IM USE CHIROPRAC 48839 MAKI MAKI TIC 5 ALEIDA ALEIDA MANIPULAT PRANAV TX SPINAL 1-2 REGIONS RADEX 07892 MAKI MAKI SPINE 5 ALEIDA ALEIDA LUMBOSACR AL 2/3 VIEWS CHIROPRAC 73327 MAKI MAKI TIC 5 ALEIDA ALEIDA MANIPULAT PRANAV TX SPINAL 1-2 REGIONS RADEX 01789 [facility] GAINES SHOULDER 2 DON DON COMPLETE MINIMUM 2 VIEWS THER 99887 MIKE MCKEON PROPH/DX 0 , VIVIEN PUGA NJX IV W W PUSH SINGLE/1S T SBST/DRUG DEEP D9220 MIKE MCKEON SEDATION/ 0 , VIVIEN PUGA W W ANESTHESI A-1ST 30 MINUTES ORTHOPANT 21803 MIKE MCKEON OGRAM 0 , VIVIEN PUGA IAADI 56716 [facility] INFLUENZA 9 [facility] B VIRUS INC INC IAADI 58189 [facility] INFFLUENZ 9 [facility] A A VIRUS INC INC RADEX 02285 [facility] RIBS UNI 9 [facility] W/POSTERO INC INC ANT CH MINIMUM 3 VIEWS URNLS DIP 81970 [facility] LITO 9 [facility] STICK/TAB INC INC LET REAGENT AUTO MICROSCOP Y Encounters Encounter Start End Date Code Location Performer Type Date [facility] - 7 7 [facility] OUTPATIEN INC T OFFICE 61148 [facility] 7 [facility] T VISIT INC 10 MINUTES OFFICE 05218 GERARDO SAMUEL OUTPATIEN 6 6 MD VIVIAN, T VISIT PSC 15 MINUTES [facility]OSPITAL [facility] - 6 6 [facility] OUTPATIEN INC T OFFICE 34538 GERARDO MARSH OUTPATIEN 6 6 MD VIVIAN, T VISIT PSC 10 MINUTES HOSPITAL L[facility] - 6 6 [facility] OUTPATIEN INC T OFFICE 68611 [facility] FRYMAN OUTPATIEN 6 6 PHYSICIAN EUG T VISIT S GROUP 25 MINUTES OFFICE 20042 [facility] HOLLIS OUTPATIEN 6 6 PHYSICIAN RODGER T VISIT S GROUP 15 MINUTES HOSPITAL L[facility]O - 6 6 [facility] OUTPATIEN INC T [facility] LITO - 6 6 [facility] OUTPATIEN INC T OFFICE 81450 GERARDO SAMUEL ALEIDA OUTPATIEN 6 6 MD VIVIAN, T NEW 30 PSC MINUTES OFFICE 43842 [facility] LARKIN OUTPATIEN 6 6 PHYSICIAN LALITO T NEW 20 S GROUP MINUTES OFFICE 94575 [facility] HOLLIS OUTPATIEN 6 6 PHYSICIAN RODGER T VISIT S GROUP 15 MINUTES HOSPITAL LITO - 6 6 [facility] OUTPATIEN INC T OFFICE 86838 [facility] HOLLIS OUTPATIEN 6 6 PHYSICIAN RODGER T VISIT S GROUP 15 MINUTES HOSPITAL LITO - 6 6 [facility] OUTPATIEN INC T OFFICE 76347 [facility] HOLLIS OUTPATIEN 6 6 PHYSICIAN RODGER T VISIT S GROUP 25 MINUTES OFFICE 12680 [facility] HOLLIS OUTPATIEN 6 6 PHYSICIAN RODGER T VISIT S GROUP 10 MINUTES HOSPITAL LITO - 6 6 [facility] OUTPATIEN INC T OFFICE 40901 [facility] HOLLIS OUTPATIEN 6 6 PHYSICIAN RODGER T VISIT S GROUP 15 MINUTES HOSPITAL LITO - 6 6 [facility] OUTPATIEN INC T OFFICE 18641 [facility] HOLLIS OUTPATIEN 6 6 PHYSICIAN RODGER T VISIT S GROUP 10 MINUTES OFFICE 84244 [facility] ROGERS OUTPATIEN 6 6 T VISIT ORTHOPAED 15 ICS PSC MINUTES OFFICE 86003 [facility] TRA CONSULTAT 6 6 [place] ION ORTHOPAED NEW/ESTAB ICS PLC PATIENT 40 MIN OFFICE 91026 [facility] MAHARAJ TER OUTPATIEN 6 6 PHYSICIAN T VISIT S GROUP 15 MINUTES OFFICE 35547 [facility] SCHULSTAD OUTPATIEN 6 6 PHYSICIAN CAM T VISIT S GROUP 10 MINUTES HOSPITAL LITO - 6 6 [facility] OUTPATIEN INC T OFFICE 37620 [facility] SCHULSTAD OUTPATIEN 6 6 PHYSICIAN CAM T NEW 30 S GROUP MINUTES EMERGENCY 07907 [facility] 6 6 [facility] DEPARTMEN INC T VISIT MODERATE SEVERITY HOSPITAL [facility] - 6 6 [facility] OUTPATIEN INC T HOSPITAL L[facility] - 5 5 [facility] OUTPATIEN INC T OFFICE 33901 [facility] SCHERER OUTPATIEN 5 5 [facility] T VISIT HOSPITAL 15 MINUTES EMERGENCY 55141 LIA YOON 5 5 PHYSICIAN [facility]IGH[facility]URGE NT SEVERITY [facility]OSPITAL [facility] - 5 5 [facility] OUTPATIEN INC T OFFICE 72622 KEVIN BROWN OUTPATIEN 5 5 YULISA YULISA T VISIT 15 MINUTES OFFICE 55390 GLYNN MAKI OUTPATIEN 5 5 ALEIDA ALEIDA T NEW [address] [facility] 4 4 KAMALA DEPARTMEN EMERGENCY T VISIT PHYS MODERATE SEVERITY OFFICE 89927 KEVIN BROWN OUTPATIEN 4 4 YULISA YULISA T VISIT 40 MINUTES OFFICE 21103 L[facility]NA ARAUJOS OUTPATIEN 2 2 DON DON T VISIT 15 MINUTES OFFICE 74070 [facility] GAINES OUTPATIEN 1 1 DON DON T VISIT 15 MINUTES OFFICE 12615 FAMILY MULBERRY OUTPATIEN 1 1 CARE LIBORIO T VISIT ASSOCIATE 15 S MINUTES OFFICE 22076 LIANA ARAUJOS OUTPATIEN 0 0 DON DON T NEW 20 MINUTES EMERGENCY 61980 [facility] 0 0 [facility] DEPARTMEN INC T VISIT MODERATE SEVERITY EMERGENCY 28065 [facility] [place], 0 0 EMERGENCY KRYSTAL DEPARTMEN SERVICES O T VISIT HIGH/URGE ASSOCIATE NT S SEVERITY HOSPITAL L[facility] - 0 0 [facility] OUTPATIEN INC T OFFICE 52254 MIKE MCKEON OUTPATIEN 0 0 , VIVIEN PUGA T NEW 10 W W MINUTES EMERGENCY 60702 [facility] 0 0 [facility] DEPARTMEN INC T VISIT LIMITED/M INOR PROB HOSPITAL L[facility]O - 0 0 [facility] OUTPATIEN INC T EMERGENCY 72427 [facility] [place], 0 0 EMERGENCY KRYSTAL DEPARTMEN SERVICES O T VISIT HIGH/URGE ASSOCIATE NT S SEVERITY EMERGENCY 99925 [facility]ES [place], 9 9 EMERGENCY KRYSTAL DEPARTMEN SERVICES O T VISIT MODERATE ASSOCIATE SEVERITY S EMERGENCY 20360 [facility] 9 9 [facility] DEPARTMEN INC T VISIT LOW/MODER SEVERITY HOSPITAL [facility] - 9 9 [facility] OUTPATIEN INC T EMERGENCY 74987 [facility]ES [place], 9 9 EMERGENCY KRYSTAL DEPARTMEN SERVICES O T VISIT HIGH/URGE ASSOCIATE NT S SEVERITY EMERGENCY 76853 [facility] 9 9 [facility] DEPARTMEN INC T VISIT LOW/MODER SEVERITY HOSPITAL [facility] - 9 9 [facility] OUTPATIEN INC T EMERGENCY 68968 [facility] [place], 9 9 EMERGENCY KRYSTAL DEPARTMEN SERVICES O T VISIT MODERATE ASSOCIATE SEVERITY S EMERGENCY 69575 [facility] 9 9 [facility] DEPARTMEN INC T VISIT LOW/MODER SEVERITY HOSPITAL [facility] - 9 9 [facility] OUTPATIEN INC T
--- OUTSIDE RECORDS SUMMARY | 2017-05-06 11:01 | External Medical Summary Rpt ---
Demographics Preferred Language Danish Marital Status Unknown Uatsdin Affiliation Unknown Race Unknown Ethnic Group Unknown Author Author FELI Address Unknown Phone Immunization No patient found.
--- OUTSIDE RECORDS SUMMARY | 2017-05-06 11:01 | External Medical Summary Rpt ---
Demographics Preferred Language Haitian Marital Status Unknown Rastafari Affiliation Unknown Race Unknown Ethnic Group Unknown Author Author FELI Address Unknown Phone Immunization No patient found.
--- OUTSIDE RECORDS SUMMARY | 2017-05-06 11:01 | External Medical Summary Rpt ---
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 Unavailable [facility], [facility] VIVIEN MCKEON, Unavailable Unavailable VIVIEN MCKEON [facility], Unavailable Unavailable [facility] ROGERS, ROGERS Unavailable Unavailable [facility], [facility] Unavailable Unavailable [facility] Unavailable Unavailable [facility], [facility] LARKIN LALITO, LARKIN Unavailable Unavailable LALITO GEO WONG P, Unavailable Unavailable GEO WONGI, Unavailable Unavailable [facility], Unavailable [facility]available [facility], [facility] Unavailable Unavailable [id number] [address] [id number], [facility] [id number] [address] [id number] SCHULSTAD CAM, Unavailable Unavailable SCHULSTAD CAM SOKAN, KRYSTAL O, Unavailable Unavailable SOKAN, KRYSTAL O [facility] GAINES DON, Unavailable Unavailable GAINES DON GAINES DON, Unavailable Unavailable GAINES DON [facility] Unavailable Unavailable #591, [facility]591 [facility] # Unavailable Unavailable [id number], [facility] # [id number] [facility] Unavailable Unavailable [facility] DE[facility] Unavailable [facility] ROSMERY HOLT, ROSMERY HOLT Unavailable Unavailable Purpose Continuity of Care Document - 02-15-2009 through 2016 Problems Code Diagnosis DOS Provider Status Z539 PROCEDURE & 11-15-2016 [facility] NOT CARRIED INC OUT UNS REASON M5116 INTERVERTEB 09-20-2016 GERARDO PARK RAL DISC , PSC D/O W/RADICULOP ATHY LUMB RGN J029 ACUTE 08-16-2016 [facility] PHARYNGITIS [facility]IC[facility]ANS GROUP UNSPECIFIED R112 NAUSEA WITH 08-16-2016 [facility] VOMITING PHYSICIANS UNSPECIFIED GROUP R197 DIARRHEA 08-16-2016 [facility] UNSPECIFIED PHYSICIANS GROUP M549 DORSALGIA 07-19-2016 [facility] UNSPECIFIED PHYSICIANS GROUP M5136 OT 07-13-2016 FILEMON ALEJANDRO MD, PSC RAL DISC DEGEN LUMBAR REGION J309 ALLERGIC 06-28-2016 [facility] RHINITIS PHYSICIANS UNSPECIFIED GROUP J381 POLYP OF 06-28-2016 [facility] VOCAL CORD PHYSICIANS AND LARYNX GROUP M5126 OT 06-28-2016 FILEMON ALEJANDRO MD, PSC RAL DISC DISPLACEMEN T LUMBAR RGN M5416 RADICULOPAT 06-28-2016 GEARRDO PARK, HY LUMBAR , PSC REGION Z720 TOBACCO USE 06-28-2016 [facility] M545 LOW BACK 06-11-2016 [facility] PAIN PHYSICIANS GROUP R499 UNSPECIFIED 06-11-2016 [facility] VOICE PHYSICIANS RESONANCE GROUP DISORDER J40 BRONCHITIS 03-24-2016 [facility] NOT PHYSICIANS SPECIFIED GROUP ACUTE OR CHRONIC J329 CHRONIC 02-23-2016 [facility] SINUSITIS PHYSICIANS UNSPECIFIED GROUP M5441 LUMBAGO 12-18-2015 [facility] WITH PHYSICIANS SCIATICA GROUP RIGHT SIDE R1011 RIGHT UPPER 12-18-2015 [facility] QUADRANT PHYSICIANS PAIN GROUP [id number] CELLULITIS 10-22-2015 [facility] LEFT PHYSICIANS, FINGER PLLC M5430 SCIATICA 10-01-2015 [facility] M533 SACROCOCCYG 09-21-2015 [facility] MEDICAL DISORDERS IMAGING ASS NEC B16333 PERSONAL 09-21-2015 [facility] NICOTINE INC DEPENDENCE J0190 ACUTE 09-16-2015 ARNOLD YULISA SINUSITIS UNSPECIFIED M542 CERVICALGIA 09-16-2015 KEVIN MÁRQUEZ V0481 NEED 07-16-2015 [facility] DEPT VACCINATION JEZ &INOCULATIO N FLU 7242 LUMBAGO 06-07-2015 MAKI ALEIDA 7393 NONALLOPATH 06-07-2015 MAKI IC LESION ALEIDA OF LUMBAR REGION NEC 7395 NONALLOPATH 06-07-2015 MAKI IC LESION ALEIDA OF PELVIC REGION NEC 462 ACUTE 07-01-2014 [facility] 4739 UNSPECIFIED 07-01-2014 [facility] SINUS[facility]IS N [facility]ERGENCY PHYS V700 ROUTINE 03-29-2014 KEVIN MÁRQUEZ GENERAL MEDICAL EXAM@HEALTH CARE FACL 13274 PAIN IN 01-12-2012 [facility] JOINT, DON SHOULDER REGION 8409 SPRAIN&STRA 01-12-2012 GA[facility] IN UNSPEC DON SITE SHOULDER&UP PER ARM 6929 CONTACT 10-01-2011 [facility] DERMATITIS& DON OTHER ECZEMA DUE UNSPEC CAUSE 7821 RASH AND 04-17-2011 [facility] OTHER [facility]OCIATES NONSPECIFIC SKIN ERUPTION 4660 ACUTE 06-15-2010 [facility] BRONCHITIS DON 15721 SHORTNESS 06-15-2010 [facility] OF BREATH DON 96564 OTHER CHEST 06-15-2010 [facility] PAIN DON 52055 NAUSEA WITH 06-15-2010 [facility] VOMITING DON 7804 DIZZINESS 04-01-2010 [facility] GIDDINESS INC 9895 TOXIC 04-01-2010 [facility] EFFECT OF EMERGENCY VENOM SERVICES ASSOC[facility]ATES 5206 DISTURBANCE 03-12-2010 Rebekah MCKEON IN TOOTH [facility] [place] ERUPTION 20224 DENTAL 03-05-2010 MIKE CARIES [facility] [place] EXTENDING INTO PULP 5220 PULPITIS 03-05-2010 VIVIEN MCKEON 5253 RETAINED 03-05-2010 MIKE DENTAL ROOT [facility] [place] 8920 OPEN WOUND 01-26-2010 [facility] FT NO TOE EMERGENCY ALONE SERVICES WITHOUT ASSOCIATES MENTION COMP V065 NEED 01-26-2010 [facility] PROPHYLACTI [facility] C INC VACCINATION W/TETANUS-D [facility] 4871 INFLUENZA 07-22-2009 [facility] WITH OTHER EMERGENCY RESPIRATORY SERVICES ASSOCIATES MANIFESTATI ONS 4881 INFLUENZA 07-22-2009 [facility] D/T ID 2008 [facility] H1N1 INC INFLUENZA VIRUS 6820 CELLULITIS 05-27-2009 [facility] AND ABSCESS EMERGENCY OF FACE SERVICES [facility] 9221 CONTUSION 02-15-2009 [facility] MEDICAL WALL IMAGING ASSOCIATES E8150 OTH MOTR 02-15-2009 [place] VEH HERI MEDICAL W/OBJ IMAGING HIWAY-INJUR 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 E8230 OTH MOTR 02-15-2009 [facility] VEH NONTRFF EMERGENCY HERI SERVICES W/STATION ASSOCIATES OBJ-BUS AND RAIL OPERATOR E8490 PLACE OF 02-15-2009 [place] OCCURRENCE, MEDICAL [...] [place] NO PH EN 5- 32 5 CE [...] CY O PS UL #5 E 91 NV 68 10 10 00 12 2 [...] Procedure DOS [place] [address] GERARDO PARK DX/THER 6 MD VIVIAN, SBST PSC EPIDURAL/ SUBARACH LUMBAR/SA CRAL BLOOD 32262 [facility] COUNT 6 [facility] COMPLETE INC INC AUTO&AUTO DIFRNTL WBC COMPREHEN 43513 [facility] SIVE 6 [facility] METABOLIC INC INC PANEL DRUG TST G0477 [facility] PRESUMP;C 6 [facility] PBL BEING INC INC READ DC OPT OBV ONLY NJX 62760 GERARDO SAMUEL ALEIDA DX/THER 6 MD VIVIAN, [...] INC READ DC OPT OBV ONLY MRI 70411 [facility] TRA SPINAL 6 CANAL ORTHOPAED LUMBAR ICS PSC W/O CONTRAST MATERIAL RADEX 56710 [facility] SPINE 6 [place] LUMBOSACR ORTHOPAED AL 2/3 ICS PLC VIEWS INJECTION J1040 [facility] MAHARAJ TER 6 PHYSICIAN METHYLPRE S GROUP DNISOLONE ACETATE 80 MG THERAPEUT 46382 [facility] [place] IC 6 PHYSICIAN PROPHYLAC S GROUP TIC/DX INJECTION SUBQ/[place] [address] [facility] ABDOMINAL 6 [facility] REAL INC INC TIME W/IMAGE LIMITED INCISION 70178 [facility] & 6 [facility] DRAINAGE INC INC ABSCESS SIMPLE/SI NGLE PHYSICAL 21713 L[facility] THERAPY 5 [facility] EVALUATIO INC INC N THERAPEUT 61924 [facility] LINDSEYCRISTALSATURNINO IC 5 [facility] TIC/DX INJECTION SUBQ/IM INJECTION J1885 [facility] SONIAAN 5 [facility] TROMETHAM INE PER 15 MG THERAPEUT 22902 [facility] M[facility]SE IC 5 [facility] PROPHYLAC INC INC TIC/DX INJECTION SUBQ/IM CT LUMBAR 32106 [place] DICK SPINE 5 MEDICAL LUPILLO W/O IMAGING CONTRAST ASS MATERIAL IIV4 VACC 81399 [facility] SPLIT 5 DISTRICT DISTRICT VIRUS 0.5 HLTH DEPT HLTH DEPT ML DOS JEZ JEZ FOR IM USE CHIROPRAC 42519 MAKI MAKI TIC 5 ALEIDA ALEIDA MANIPULAT PRANAV TX SPINAL 1-2 REGIONS RADEX 84628 MAKI MAKI SPINE 5 ALEIDA ALEIDA LUMBOSACR AL 2/3 VIEWS CHIROPRAC 45710 MAKI MAKI TIC 5 ALEIDA ALEIDA MANIPULAT PRANAV TX SPINAL 1-2 REGIONS RADEX 02765 GAINES GAINES SHOULDER 2 DON DON COMPLETE MINIMUM 2 VIEWS THER 71667 MIKE MCKEON PROPH/DX 0 , VIVIEN PUGA NJX IV W W PUSH SINGLE/1S T SBST/DRUG DEEP D9220 MIKE MCKEON SEDATION/ 0 , VIVIEN PUGA W W ANESTHESI A-1ST 30 MINUTES ORTHOPANT 25795 MIKE MCKEON OGRAM 0 , VIVIEN PUGA IAADI 23522 [facility] INFLUENZA 9 [facility] B VIRUS INC INC IAADI 70802 [facility] INFFLUENZ 9 [facility] A A VIRUS INC INC RADEX 86660 [facility] RIBS UNI 9 [facility] W/POSTERO INC INC ANT CH MINIMUM 3 VIEWS URNLS DIP 51752 [facility] LITO 9 [facility] STICK/TAB INC INC LET REAGENT AUTO MICROSCOP Y Encounters Encounter Start End Date Code Location Performer Type Date [facility] L[facility]O - 7 7 [facility] OUTPATIEN INC T OFFICE 33031 [facility] 7 7 [facility] T VISIT INC 10 MINUTES OFFICE 44150 GERARDO SAMUEL OUTPATIEN 6 6 MD VIVIAN, T VISIT PSC 15 MINUTES [facility]OSPITAL [facility] - 6 6 [facility] OUTPATIEN INC T OFFICE 30221 GERARDO MARSH OUTPATIEN 6 6 MD VIVIAN, T VISIT PSC 10 MINUTES HOSPITAL L[facility] - 6 6 [facility] OUTPATIEN INC T OFFICE 45429 [facility] FRYMAN OUTPATIEN 6 6 PHYSICIAN EUG T VISIT S GROUP 25 MINUTES OFFICE 50903 [facility] HOLLIS OUTPATIEN 6 6 PHYSICIAN RODGER T VISIT S GROUP 15 MINUTES HOSPITAL LITO - 6 6 [facility] OUTPATIEN INC T [facility] LITO - 6 6 [facility] OUTPATIEN INC T OFFICE 76508 GERARDO SAMUEL ALEIDA OUTPATIEN 6 6 MD VIVIAN, T NEW 30 PSC MINUTES OFFICE 98528 [facility] LARKIN OUTPATIEN 6 6 PHYSICIAN LALITO T NEW 20 S GROUP MINUTES OFFICE 59679 [facility] HOLLIS OUTPATIEN 6 6 PHYSICIAN RODGER T VISIT S GROUP 15 MINUTES HOSPITAL L[facility] - 6 6 [facility] OUTPATIEN INC T OFFICE 72431 [facility] HOLLIS OUTPATIEN 6 6 PHYSICIAN RODGER T VISIT S GROUP 15 MINUTES HOSPITAL LITO - 6 6 [facility] OUTPATIEN INC T OFFICE 86533 [facility] HOLLIS OUTPATIEN 6 6 PHYSICIAN RODGER T VISIT S GROUP 25 MINUTES OFFICE 55947 [facility] HOLLIS OUTPATIEN 6 6 PHYSICIAN RODGER T VISIT S GROUP 10 MINUTES HOSPITAL L[facility]O - 6 6 [facility] OUTPATIEN INC T OFFICE 50815 [facility] HOLLIS OUTPATIEN 6 6 PHYSICIAN RODGER T VISIT S GROUP 15 MINUTES HOSPITAL LITO - 6 6 [facility] OUTPATIEN INC T OFFICE 19166 [facility] HOLLIS OUTPATIEN 6 6 PHYSICIAN RODGER T VISIT S GROUP 10 MINUTES OFFICE [address] [facility] [facility] ROGERS OUTPATIEN 6 6 T VISIT ORTHOPAED 15 ICS PSC MINUTES OFFICE 57783 [facility] CONSULTAT 6 6 [place] ION ORTHOPAED NEW/ESTAB ICS PLC PATIENT 40 MIN OFFICE 50356 [facility] MAHARAJ TER OUTPATIEN 6 6 PHYSICIAN T VISIT S GROUP 15 MINUTES OFFICE 40312 [facility] SCHULSTAD OUTPATIEN 6 6 PHYSICIAN CAM T VISIT S GROUP 10 MINUTES HOSPITAL LITO - 6 6 [facility] OUTPATIEN INC T OFFICE 16282 [facility] SCHULSTAD OUTPATIEN 6 6 PHYSICIAN CAM T NEW 30 S GROUP MINUTES EMERGENCY 76539 [facility] 6 6 [facility] DEPARTMEN INC T VISIT MODERATE SEVERITY HOSPITAL L[facility] - 6 6 [facility] OUTPATIEN INC T HOSPITAL [facility] - 5 5 [facility] OUTPATIEN INC T OFFICE 37308 [facility] SCHERER OUTPATIEN 5 5 [facility] T VISIT HOSPITAL 15 MINUTES EMERGENCY 11285 LIA YOON 5 5 PHYSICIAN [facility] HIGH/URGE NT SEVERITY [facility]OSPITAL [facility] - 5 5 [facility] OUTPATIEN INC T OFFICE 36633 KEVIN BROWN OUTPATIEN 5 5 YULISA YULISA T VISIT 15 MINUTES OFFICE 30693 GLYNN MAKI OUTPATIEN 5 5 ALEIDA ALEIDA T NEW 20 MINUTES EMERGENCY 57979 [facility] 4 4 KAMALA DEPARTMEN EMERGENCY T VISIT PHYS MODERATE SEVERITY OFFICE 80615 KEVIN BROWN OUTPATIEN 4 4 YULISA YULISA T VISIT 40 MINUTES OFFICE 18450 LIANA ARAUJOS OUTPATIEN 2 2 DON DON T VISIT 15 MINUTES OFFICE 93520 LIANA GAINES OUTPATIEN 1 1 DON DON T VISIT 15 MINUTES OFFICE 61189 [facility] MULBERRY OUTPATIEN 1 1 CARE LIBORIO T VISIT ASSOCIATE 15 S MINUTES OFFICE 03937 LIANA ARAUJOS OUTPATIEN 0 0 DON DON T NEW 20 MINUTES EMERGENCY 45458 [facility] 0 0 [facility] DEPARTMEN INC T VISIT MODERATE SEVERITY EMERGENCY 86421 [facility] [place], 0 0 EMERGENCY KRYSTAL DEPARTMEN SERVICES O T VISIT HIGH/URGE ASSOCIATE NT S SEVERITY HOSPITAL LITO - 0 0 [facility] OUTPATIEN INC T OFFICE 57745 MIKE MCKEON OUTPATIEN 0 0 , VIVIEN PUGA T NEW 10 W W MINUTES EMERGENCY 52630 [facility] 0 0 [facility] DEPARTMEN INC T VISIT LIMITED/M INOR PROB HOSPITAL LITO - 0 0 [facility] OUTPATIEN INC T EMERGENCY 05150 [facility]ES [place], 0 0 EMERGENCY KRYSTAL DEPARTMEN SERVICES O T VISIT HIGH/URGE ASSOCIATE NT S SEVERITY EMERGENCY 29707 ANG[facility]ES [place], 9 9 EMERGENCY KRYSTAL DEPARTMEN SERVICES O T VISIT MODERATE ASSOCIATE SEVERITY S EMERGENCY 60056 [facility] 9 9 [facility] DEPARTMEN INC T VISIT LOW/MODER SEVERITY HOSPITAL [facility] - 9 9 [facility] OUTPATIEN INC T EMERGENCY 01537 [facility] [place], 9 9 EMERGENCY KRYSTAL DEPARTMEN SERVICES O T VISIT HIGH/URGE ASSOCIATE NT S SEVERITY EMERGENCY 03567 [facility] 9 9 [facility] DEPARTMEN INC T VISIT LOW/MODER SEVERITY HOSPITAL [facility] - 9 9 [facility] OUTPATIEN INC T EMERGENCY 74073 [facility] [place], 9 9 EMERGENCY KRYSTAL DEPARTMEN SERVICES O T VISIT MODERATE ASSOCIATE SEVERITY S EMERGENCY 83492 [facility] 9 9 [facility] DEPARTMEN INC T VISIT LOW/MODER SEVERITY HOSPITAL L[facility] - 9 9 [facility] OUTPATIEN INC T
[2017-05-06 11:18] VITALS: BP 109/69
[2017-06-01] MEDS ORDERED: CLINDAMYCIN HC150 MG PO (11:51)
[2017-06-01] MEDS ORDERED: BACTRIM DS 8001 TA1 PO (11:51)
== END 2017-05-06 11:19 | disposition home or self-care (01) ==
LOC: UTC 10:50
DX: L02.414 Cutaneous abscess of left upper limb (principal)